=== PATIENT | female | born 1950 | race Caucasian/White ===

== ENCOUNTER → 2017-09-12 | Outpatient (CLI) | payer OTHER, BC ==
--- NOTE | 2017-09-15 14:46 | MAMMOGRAPHY REPORT ---
BILATERAL DIGITAL SCREENING MAMMOGRAM TOMOSYNTHESIS WITH CAD: 09/12/2017 CLINICAL HISTORY: Routine screening. TECHNIQUE: Breast tomosynthesis in addition to standard 2D mammography was performed. Current study was also evaluated with a Computer Aided Detection (CAD) system. COMPARISON: No prior exams were available for comparison. BREAST COMPOSITION: The tissue of both breasts is almost entirely fatty. FINDINGS: There are no suspicious masses, calcifications, or areas of architectural distortion noted within either breast. Intramammary lymph nodes are seen within bilateral upper outer quadrants. Sc attered bilateral benign-appearing calcifications are noted. A port catheter overlies the right pect oralis muscle. A linear scar marker denotes a scar on the right lower inner breast. IMPRESSION: ACR BI-RADS CATEGORY 0: INCOMPLETE EVALUATION: NEED ADDITIONAL IMAGING EVALUATION No mammographic evidence of malignancy in either breast. However, recommend obtaining prior outside mammograms to evaluate for any possible subtle changes. The outside prior mammograms will be request ed, and an addendum will be made when they are received and a comparison is made. Approximately 10% of breast cancers are not detected with mammography. A negative mammographic report should not delay biopsy if a clinically suggestive mass is present. Ashlie Acuña M.D. ah/:09/12/2017 17:10:50 Computerized [place] Recorder: Aleks KAUR(Harish)(M), [facility] letter sent: Need Priors 0 BI-RADS Code: ACR BI-RADS Category 0: Incomplete Evaluation: Need Additional Imaging Evaluation
== END | disposition home or self-care (01) ==
LOC: C.MAMM 11:25
PROVIDERS: ATTEND Family Medicine
DX: Z12.31 Encounter for screening mammogram for malignant neoplasm of breast (principal)

== ENCOUNTER 2018-03-24 21:17 | Inpatient (IN) | payer OTHER, BC ==
[~2018-03-24] VITALS: Ht 162.6 cm; Wt 91.4 kg
[~2018-03-24 21:17] MED LIST: ATV5 PO; CHOL1TAB2 PO; CYAN1TAB4 PO; IBRU420T PO
[2018-03-24] MEDS ORDERED: SODIUM CHLORIDE 0.9% 1000ML 1,000 ML IV ONE (22:12)
--- NOTE | 2018-03-24 22:26 | EMERGENCY ROOM VISIT NOTE ---
History Report prepared by Valentin: eKny Melara Under the Supervision of: Dr. Jeb Mims D.O. First contact with patient: 22:04 Chief Complaint: FEVER Stated Complaint: FEVER GREATER THAN 100.1 History of Present Illness The patient is a 67 year old female who presents to the Emergency Room with complaints of a constant fever that began today. Patient states the highest recorded fever was 101.7. Patient states she was discharged from the hospital yesterday after a recent blood transfusion. Patient states she received "2 units of blood and platelets". She states she was originally admitted to the hospital after "a slight amount of blood" was found in her stool. Past medical history includes leukemia. Patient states she was told to come to the ER if her fever was higher than 101. Patient states she has chills, diarrhea, and feels "clammy". She states she is going to start seeing Dr. Elder soon. Patient denies any recent travels. She states her last dose of Tylenol/Motrin was 4 hours ago. She states she took her last chemo pill an hour ago. She states she was told her chemo pill will cause "fluctuations" in her WBC. Patient states her PCP is Dr. Black. Patient denies any pain, urinary symptoms, cough, chest pain, nausea, vomiting, and rashes. She adds she has a port. Source of History: patient Onset: Today Position: head Symptom Intensity: 101.7 Timing: worsening Modifying Factors (Relieving): other (None) Associated Symptoms: + chills, No cough, No chest pain, No nausea, No vomiting, No urinary symptoms, No rash Note: Positive "clammy". Negative any pain. Review of Systems See HPI for pertinent positives & negatives. A total of 10 systems reviewed and were otherwise negative. Past Medical & Surgical Medical Problems: (1) CLL (chronic lymphocytic leukemia) Family History Omitted secondary to age. Social History Smoking Status: Never Smoker Marital Status: Housing Status: lives with family Occupation Status: retired Current/Historical Medications Scheduled Cholecalciferol (Vitamin D-3), 500 MG PO DAILY Cyanocobalamin (B-12), 500 MCG PO DAILY Ibrutinib (Imbruvica), 420 MG PO DAILY Multivitamin (Multivitamin), 1 TAB PO DAILY Scheduled PRN Lorazepam (Ativan), 0.5 MG PO HS PRN for Insomnia Allergies Coded Allergies: Azithromycin (Verified Allergy, Unknown, HIVES, 03/24/18) Physical Exam Vital Signs Date Time Temp Pulse Resp B/P (MAP) Pulse Ox O2 Delivery O2 Flow Rate FiO2 03/25/18 00:07 87 20 132/72 100 Room Air 03/24/18 22:50 82 14 125/56 97 Room Air 03/24/18 22:47 95 Room Air 03/24/18 21:34 37.4 91 18 116/66 98 Room Air Physical Exam GENERAL: Patient is awake, alert, and in no acute distress. Patient is resting comfortably and showing no signs of anxiety EYES: The conjunctivae are clear. The pupils are round and reactive. EARS, NOSE, MOUTH AND THROAT: The nose is without any evidence of any deformity. Mucous membranes are moist. Tongue is midline NECK: The neck is nontender and supple. RESPIRATORY: Normal respiratory effort is noted. There is no evidence of wheezing rhonchi or rales to auscultation. CARDIOVASCULAR: Regular rate and rhythm noted. There no murmurs rubs or gallops normal S1 normal S2 GASTROINTESTINAL: The abdomen is soft. Bowel sounds are present in all quadrants. Abdomen is nontender. MUSCULOSKELETAL/EXTREMITIES: There is no evidence of gross deformity. Full range of motion is noted in the hips and shoulders. SKIN: There is no obvious evidence of any rash. There are no petechiae, pallor or cyanosis noted. NEUROLOGIC: Patient is awake alert and oriented x3. Strength is symmetric. Patellar reflexes are 2+ bilaterally. Medical Decision & Procedures ER Provider Diagnostic Interpretation: Radiology results as stated below per my review and radiologist interpretation: CHEST ONE VIEW PORTABLE HISTORY: 67 years-old Female Sepsis acute sepsis COMPARISON: Chest radiograph 03/22/2018 TECHNIQUE: Portable AP view of the chest FINDINGS: Cardiomediastinal and hilar silhouettes are within normal limits. Right internal jugular [id number]-z-[id number] catheter is unchanged. No pneumothorax, pleural effusion, focal airspace consolidation or overt pulmonary edema. Bones of the chest appear grossly intact. IMPRESSION: No acute process. The above report was generated using voice recognition software. It may contain grammatical, syntax or spelling errors. Electronically signed by: Jarrell Balderrama M.D. 03/24/2018 10:38 PM Laboratory Results 03/24/18 22:41 Red Blood Count 2.51, Mean Corpuscular Volume 90.0, Mean Corpuscular Hemoglobin 31.1, Mean Corpuscular Hemoglobin Concent 34.5, Mean Platelet Volume 11.3, Neutrophils (%) (Auto) 5.4, Lymphocytes (%) (Auto) 93.4, Monocytes (%) (Auto) 0.4, Eosinophils (%) (Auto) 0.0, Basophils (%) (Auto) 0.4, Neutrophils # (Auto) 0.13, Lymphocytes # (Auto) 2.26, Monocytes # (Auto) 0.01, Eosinophils # (Auto) 0.00, Basophils # (Auto) 0.01 03/24/18 22:41 Test 03/24/18 22:41 03/24/18 22:50 03/24/18 22:53 White Blood Count 2.42 K/uL (4.8-10.8) Red Blood Count 2.51 M/uL (4.2-5.4) Hemoglobin 7.8 g/dL (12.0-16.0) Hematocrit 22.6 % (37-47) Mean Corpuscular Volume 90.0 fL (80-100) Mean Corpuscular Hemoglobin 31.1 pg (25-34) Mean Corpuscular Hemoglobin Concent 34.5 g/dl (32-36) Platelet Count 24 K/uL (130-400) Mean Platelet Volume 11.3 fL (7.4-10.4) Neutrophils (%) (Auto) 5.4 % Lymphocytes (%) (Auto) 93.4 % Monocytes (%) (Auto) 0.4 % Eosinophils (%) (Auto) 0.0 % Basophils (%) (Auto) 0.4 % Neutrophils # (Auto) 0.13 K/uL (1.4-6.5) Lymphocytes # (Auto) 2.26 K/uL (1.2-3.4) Monocytes # (Auto) 0.01 K/uL (0.11-0.59) Eosinophils # (Auto) 0.00 K/uL (0-0.5) Basophils # (Auto) 0.01 K/uL (0-0.2) RDW Standard Deviation 46.8 fL (36.4-46.3) RDW Coefficient of Variation 14.3 % (11.5-14.5) Immature Granulocyte % (Auto) 0.4 % Immature Granulocyte # (Auto) 0.01 K/uL (0.00-0.02) Hypogranular Neutrophils 1+ Smudge Cells PRESENT Dohle Bodies 1+ Platelet Estimate SIGNIFIC DECREASED Erythrocyte Sedimentation Rate 12 mm/hr (0-21) Prothrombin Time 11.3 SECONDS (9.0-12.0) Prothromb Time International Ratio 1.1 (0.9-1.1) Activated Partial Thromboplast Time 65.1 SECONDS (21.0-31.0) Partial Thromboplastin Ratio 2.5 Anion Gap 6.0 mmol/L (3-11) Est Creatinine Clear Calc Drug Dose 82.3 ml/min Estimated GFR () 103.9 Estimated GFR (Non- 89.7 BUN/Creatinine Ratio 28.6 (10-20) Calcium Level 7.7 mg/dl (8.5-10.1) Magnesium Level 1.6 mg/dl (1.8-2.4) Total Bilirubin 1.8 mg/dl (0.2-1) Aspartate Amino Transf (AST/SGOT) 10 U/L (15-37) Alanine Aminotransferase (ALT/SGPT) 14 U/L (12-78) Alkaline Phosphatase 97 U/L (45-117) C-Reactive Protein 5.96 mg/dl (0-0.29) Total Protein 5.5 gm/dl (6.4-8.2) Albumin 2.9 gm/dl (3.4-5.0) Globulin 2.6 gm/dl (2.5-4.0) Albumin/Globulin Ratio 1.1 (0.9-2) Lipase 68 U/L (73-393) Urine Color DK YELLOW Urine Appearance CLEAR (CLEAR) Urine pH 5.0 (4.5-7.5) Urine Specific [place] 1.020 (1.000-1.030) Urine Protein 1+ (NEG) Urine Glucose (UA) NEG (NEG) Urine Ketones NEG (NEG) Urine Occult Blood 1+ (NEG) Urine Nitrite NEG (NEG) Urine Bilirubin NEG (NEG) Urine Urobilinogen NEG (NEG) Urine Leukocyte Esterase SMALL (NEG) Urine WBC (Auto) 1-5 /hpf (0-5) Urine RBC (Auto) 5-10 /hpf (0-4) Urine Hyaline Casts (Auto) 1-5 /lpf (0-5) Urine Epithelial Cells (Auto) >30 /lpf (0-5) Urine Bacteria (Auto) NEG (NEG) Bedside Lactic Acid Venous < 0.30 mmol/L (0.90-1.70) Laboratory results per my review. Medications Administered Medications (Trade) Dose Ordered Sig/Quita Route Start Time Stop Time Status Last Admin Dose Admin Sodium Chloride 1,000 ml @ 999 mls/hr Q1H1M ONCE IV 03/24/18 22:12 03/24/18 23:12 DC 03/24/18 22:12 999 MLS/HR Magnesium Sulfate (Magnesium Sulfate 1gm / D5W) 2 gm NOW STAT IV 03/24/18 23:53 03/24/18 23:54 DC 03/25/18 00:04 2 GM Potassium Chloride (Klor-Con M10) 10 meq NOW STAT PO 03/24/18 23:53 03/24/18 23:54 DC 03/25/18 00:05 10 MEQ Cefepime HCl 2000 mg/Dextrose 122 ml @ 200 mls/hr NOW STAT IV 03/24/18 23:57 03/25/18 00:33 DC 03/25/18 00:53 200 MLS/HR ED Course 2208: The patient was evaluated in room C12B. A complete history and physical examination were performed. 2212: NSS 1,000 ml @ 999 mls/hr IV 2353: Potassium Chloride 10meq PO and Magnesium Sulfate 2gm IV 2357: Cefepime HCl 2,000mg/Dextrose 122 ml @ 200 mls/hr IV 0012: Upon reevaluation, the patient will be further evaluated. I discussed results and treatment plan with her. She verbalizes agreement and understanding. I spoke with Dr. Gong of the [facility] Resident. The patient will be evaluated for further management and care. Medical Decision Prior records/ancillary studies reviewed. Triage Nursing notes reviewed. The patient's history was concerning for fever. Differential diagnosis: Etiologies such as viral syndrome, otitis, pharyngitis, pneumonia, influenza, meningitis, urinary tract infection, sepsis, bacteremia, as well as others were entertained. The patient is a 67-year-old female who presented to the emergency department for an evaluation of fever. The patient was recently seen in our facility for blood transfusion for pancytopenia. The patient has a history of CLL. She does receive chemotherapy. She had a fever today and was told to go to the emergency department because of her chemotherapy use. I discussed patient's laboratory and radiographic studies with her. Given her neutropenia she was given IV fluids and IV antibiotics. I discussed her case with the on-call [facility] hospitalist group. They have agreed to evaluate patient in the emergency department for further management and disposition. I discussed patient's laboratory and radiographic studies with her. Medication Reconcilliation Current Medication List: was personally reviewed by me Blood Pressure Screening Patient's blood pressure: Normal blood pressure Blood pressure disposition: Did not require urgent referral Consults Time Called: [phone] Consulting Physician: Dr. Gong - [facility] Hospitalist Resident Returned Call: [phone] I discussed the patient's case with Dr. Gong. The patient will be evaluated for further management. Impression Primary Impression: Neutropenic fever Additional Impressions: Hypomagnesemia Pancytopenia Scribe Attestation The scribe's documentation has been prepared under my direction and personally reviewed by me in its entirety. I confirm that the note above accurately reflects all work, treatment, procedures, and medical decision making performed by me. Departure Information Dispostion Being Evaluated By Hospitalist Referrals Parisa Black M.D. (PCP) Forms HOME CARE DOCUMENTATION FORM, IMPORTANT VISIT INFORMATION Patient Instructions My [facility] Health Problem Qualifiers
--- NOTE | 2018-03-24 22:39 | DIAGNOSTIC IMAGING REPORT ---
CHEST ONE VIEW PORTABLE HISTORY: 67 years-old Female Sepsis acute sepsis COMPARISON: Chest radiograph 03/22/2018 TECHNIQUE: Portable AP view of the chest FINDINGS: Cardiomediastinal and hilar silhouettes are within normal limits. Right internal jugular [id number]-Iess catheter is unchanged. No pneumothorax, pleural effusion, focal airspace consolidation or overt pulmonary edema. Bones of the chest appear grossly intact. IMPRESSION: No acute process. The above report was generated using voice recognition software. It may contain grammatical, syntax or spelling errors. Electronically signed by: Jarrell Balderrama M.D. 03/24/2018 10:38 PM Dictated Date/Time: 03/24/2018 10:36 PM
[2018-03-24 23:20] LABS: INR 1.1 (0.9-1.1)
[2018-03-24 23:21] LABS: PTT PATIENT 65.1 SECONDS (21.0-31.0)
[2018-03-24 23:28] LABS: ALBUMIN 2.9 gm/dl (3.4-5.0); CALCIUM 7.7 mg/dl (8.5-10.1); CREATININE 0.7 mg/dl (0.60-1.20); POTASSIUM 3.3 mmol/L (3.5-5.1); TOTAL PROTEIN 5.5 gm/dl (6.4-8.2)
[2018-03-24 23:29] LABS: HEMATOCRIT 22.6 % (37-47); HEMOGLOBIN 7.8 g/dL (12.0-16.0); MEAN CORPUSCULAR HEMOGLOBIN 31.1 pg (25-34); MEAN CORPUSCULAR HGB CONC 34.5 g/dl (32-36); MEAN PLATELET VOLUME 11.3 fL (7.4-10.4); PLATELET COUNT 24 K/uL (130-400); RED CELL DISTRIBUTION WIDTH CV 14.3 % (11.5-14.5); RED CELL DISTRIBUTION WIDTH SD 46.8 fL (36.4-46.3); WHITE BLOOD COUNT 2.42 K/uL (4.8-10.8)
[2018-03-24 23:45] LABS: BASO % 0.4 %; BASO ABS # 0.01 K/uL (0-0.2); IG# 0.01 K/uL (0.00-0.02); LYMPH % 93.4 %; LYMPH ABS # 2.26 K/uL (1.2-3.4); MONO % 0.4 %; MONO ABS # 0.01 K/uL (0.11-0.59); NEUT % 5.4 %; NEUT ABS # 0.13 K/uL (1.4-6.5)
[2018-03-24] MEDS ORDERED: POTASSIUM CHLORIDE 10 MEQ TABCR PO STA (23:53)
[2018-03-24] MEDS ORDERED: MAGNESIUM SULFATE 1GM / D5W 1 GM BAG IV STA (23:53)
[2018-03-24] MEDS ORDERED: MULT-506 PO (23:54)
[2018-03-24] MEDS ORDERED: LORA-741 PO (23:54)
[2018-03-24] MEDS ORDERED: CEFEPIME IV 2,000 MG in DEXTROSE 5% 100ML 100 ML IV STA (23:57)
[2018-03-25] VITALS (12 sets, daily range): BP systolic 109–137; BP diastolic 66–83; PULSE 80–98; TEMP 36.7–37.6; O2SAT 92–100; Ht 162.6 cm; Wt 91.4 kg
[2018-03-25] MEDS ORDERED: PIPERACILL/TAZOBAC CONSULT ACTIVE PRN (01:45)
[2018-03-25] MEDS ORDERED: VANCOMYCIN CONSULT ACTIVE PRN (01:45)
[2018-03-25] MEDS ORDERED: ACETAMINOPHEN 325 MG TAB PO PRN (01:45)
[2018-03-25] MEDS ORDERED: VANCOMYCIN 1GM ED/ASU OMNICELL ONE (01:50)
[2018-03-25] MEDS ORDERED: ONDANSETRON 8MG OD TAB PO PRN (02:00)
[2018-03-25] MEDS ORDERED: FILGRASTIM 480 MCG/1.6 ML VIAL SC ONE (02:00)
[2018-03-25] MEDS ORDERED: PIPERACILL/TAZOBAC IV 4.5 GM in D5W 100 ML IV ONE (03:00)
[2018-03-25] MEDS: NSS + 20MEQ KCL 1000ML 1,000 ML IV SCH ×2 (03:56→15:27)
[2018-03-25] MEDS ORDERED: VANCOMYCIN IV 1,000 MG in SODIUM CHLORIDE 0.9% 250ML 250 ML IV SCH (04:00)
--- NOTE | 2018-03-25 04:40 | Pharmacy Progress Note ---
Pharmacy Antibiotic Consult Date of Service: Mar 25, 2018. Pharmacy Dosing Scope Pharmacy is consulted to initiate VANCOMYCIN IV dosing therapy, order appropriate labs and adjust drug dose/frequency. Subjective The patient is a 67 year old female admitted on Mar 25, 2018 at 01:52. Objective Height (Feet): 5 Height (Inches): 4.00 Weight (Kilograms): 83.700 Lab Results (24hrs): Test 03/24/18 22:41 03/24/18 22:50 03/24/18 22:53 White Blood Count 2.42 K/uL (4.8-10.8) Red Blood Count 2.51 M/uL (4.2-5.4) Hemoglobin 7.8 g/dL (12.0-16.0) Hematocrit 22.6 % (37-47) Mean Corpuscular Volume 90.0 fL (80-100) Mean Corpuscular Hemoglobin 31.1 pg (25-34) Mean Corpuscular Hemoglobin Concent 34.5 g/dl (32-36) Platelet Count 24 K/uL (130-400) Mean Platelet Volume 11.3 fL (7.4-10.4) Neutrophils (%) (Auto) 5.4 % Lymphocytes (%) (Auto) 93.4 % Monocytes (%) (Auto) 0.4 % Eosinophils (%) (Auto) 0.0 % Basophils (%) (Auto) 0.4 % Neutrophils # (Auto) 0.13 K/uL (1.4-6.5) Lymphocytes # (Auto) 2.26 K/uL (1.2-3.4) Monocytes # (Auto) 0.01 K/uL (0.11-0.59) Eosinophils # (Auto) 0.00 K/uL (0-0.5) Basophils # (Auto) 0.01 K/uL (0-0.2) RDW Standard Deviation 46.8 fL (36.4-46.3) RDW Coefficient of Variation 14.3 % (11.5-14.5) Immature Granulocyte % (Auto) 0.4 % Immature Granulocyte # (Auto) 0.01 K/uL (0.00-0.02) Hypogranular Neutrophils 1+ Smudge Cells PRESENT Dohle Bodies 1+ Platelet Estimate SIGNIFIC DECREASED Erythrocyte Sedimentation Rate 12 mm/hr (0-21) Prothrombin Time 11.3 SECONDS (9.0-12.0) Prothromb Time International Ratio 1.1 (0.9-1.1) Activated Partial Thromboplast Time 65.1 SECONDS (21.0-31.0) Partial Thromboplastin Ratio 2.5 Sodium Level 139 mmol/L (136-145) Potassium Level 3.3 mmol/L (3.5-5.1) Chloride Level 110 mmol/L (98-107) Carbon Dioxide Level 23 mmol/L (21-32) Anion Gap 6.0 mmol/L (3-11) Blood Urea Nitrogen 20 mg/dl (7-18) Creatinine 0.70 mg/dl (0.60-1.20) Est Creatinine Clear Calc Drug Dose 82.3 ml/min Estimated GFR () 103.9 Estimated GFR (Non- 89.7 BUN/Creatinine Ratio 28.6 (10-20) Random Glucose 94 mg/dl (70-99) Calcium Level 7.7 mg/dl (8.5-10.1) Magnesium Level 1.6 mg/dl (1.8-2.4) Total Bilirubin 1.8 mg/dl (0.2-1) Aspartate Amino Transf (AST/SGOT) 10 U/L (15-37) Alanine Aminotransferase (ALT/SGPT) 14 U/L (12-78) Alkaline Phosphatase 97 U/L (45-117) C-Reactive Protein 5.96 mg/dl (0-0.29) Total Protein 5.5 gm/dl (6.4-8.2) Albumin 2.9 gm/dl (3.4-5.0) Globulin 2.6 gm/dl (2.5-4.0) Albumin/Globulin Ratio 1.1 (0.9-2) Lipase 68 U/L (73-393) Urine Color DK YELLOW Urine Appearance CLEAR (CLEAR) Urine pH 5.0 (4.5-7.5) Urine Specific [place] 1.020 (1.000-1.030) Urine Protein 1+ (NEG) Urine Glucose (UA) NEG (NEG) Urine Ketones NEG (NEG) Urine Occult Blood 1+ (NEG) Urine Nitrite NEG (NEG) Urine Bilirubin NEG (NEG) Urine Urobilinogen NEG (NEG) Urine Leukocyte Esterase SMALL (NEG) Urine WBC (Auto) 1-5 /hpf (0-5) Urine RBC (Auto) 5-10 /hpf (0-4) Urine Hyaline Casts (Auto) 1-5 /lpf (0-5) Urine Epithelial Cells (Auto) >30 /lpf (0-5) Urine Bacteria (Auto) NEG (NEG) Bedside Lactic Acid Venous < 0.30 mmol/L (0.90-1.70) Micro Results: * 03/24/18 -- Blood x 2 -- pending Assessment & Plan 67yo female admitted with fever. Ordere VANCOMYCIN / ZOSYN as empiric therapy. Renal function is good. VANCOMYCIN: * Loading dose: VANCOMYCIN 2000mg (24 mg/kg) IV X 1 dose then VANCOMYCIN 1250mg (15mg/kg) IV every 12 hours. * Estimated Pk parameters: Vd 0.7 L/kg Ke ~0.072 t1/2 ~10 hours * Goal trough level estimate: between 15 - 20 mcg/mL. * Will check a trough level on 03/27 if VANCOMYCIN is continued past the current 48hr stop date/time. Pharmacy will continue to follow and will adjust dose/frequency as necessary. Thank you
--- NOTE | 2018-03-25 04:55 | History and Physical ---
History & Physical Date & Time of Service: Mar 25, 2018 at 04:23 Chief Complaint: Neutropenic Fever,Pancytopenia Primary Care Physician: Parisa Black M.D. History of Present Illness Source: patient, spouse, hospital records The patient is a 67-year-old female, with past medical history including small lymphocytic lymphoma, with newer diagnosis of CLL, who was most recently admitted to [facility] from March 22-March 23, for generalized weakness, fatigue and dizziness, and hemoglobin decreased to 7.5, with baseline 9.0. She was found to be pancytopenic, was transfused 2 units PRBCs, and 1 unit of irradiated/leuko -reduced platelets. She also received Neupogen 480 mcg subcu prior to discharge. She was advised to return to the emergency department if she were to develop a temperature, and she reports that she developed a temperature of 101.7 at home, and thus presented to the emergency department for assessment. Past Medical/Surgical History Medical Problems: (1) Anemia (2) CLL (chronic lymphocytic leukemia) (3) GI bleed (4) Hypokalemia (5) Neutropenia (6) Pancytopenia (7) Symptomatic anemia (8) Thrombocytopenia Family History Noncontributory Social History Smoking Status: Never Smoker Smokeless Tobacco Use: No Alcohol Use: none Drug Use: none Marital Status: Housing status: lives with family Occupational Status: retired Immunizations History of Influenza Vaccine: Unknown History of Tetanus Vaccine?: Unknown History of Pneumococcal: Unknown History of Hepatitis B Vaccine: Unknown Allergies Coded Allergies: Azithromycin (Verified Allergy, Unknown, HIVES, 03/24/18) Home Medications Scheduled Cholecalciferol (Vitamin D-3), 500 MG PO DAILY Cyanocobalamin (B-12), 500 MCG PO DAILY Ibrutinib (Imbruvica), 420 MG PO DAILY Multivitamin (Multivitamin), 1 TAB PO DAILY Scheduled PRN Lorazepam (Ativan), 0.5 MG PO HS PRN for Insomnia Review of Systems The patient denies chest pain, palpitations, shortness of breath, dyspnea on exertion, cough, lower extremity swelling, sore throat, chills, sweats, weight change, vomiting, diarrhea , constipation, abdominal pain, pelvic pain, blood in urine or stool, dysuria, urinary frequency or urgency, headache, memory loss, loss of consciousness, rash, abnormal bruising or bleeding, imbalance, focal weakness, numbness or tingling in arms or legs, generalized arthralgias or myalgias, back or neck pain, or night sweats. The review of systems is otherwise negative other than for that already noted above, and at least 10 systems have been reviewed. Physical Exam Vital Signs Date Time Temp Pulse Resp B/P (MAP) Pulse Ox O2 Delivery O2 Flow Rate FiO2 03/25/18 02:40 37.6 98 18 137/80 92 Room Air 03/25/18 01:53 96 16 120/68 99 Room Air 03/25/18 00:07 87 20 132/72 100 Room Air 03/24/18 22:50 82 14 125/56 97 Room Air 03/24/18 22:47 95 Room Air 03/24/18 21:34 37.4 91 18 116/66 98 Room Air The patient is awake, alert and oriented 3, normocephalic and atraumatic, lying in bed and in no acute distress. HEENT--PERRL, EOMI, oropharynx normal, and left eye with mild tearing. Neck--supple. No JVD. No bruits. Thyroid normal, trachea midline, no adenopathy. Heart--normal S1 and S2. No murmurs, rubs or gallops. Lungs--clear bilaterally, no respiratory distress, no accessory muscle use. Abdomen--normal bowel sounds and soft. Nontender. Nondistended, no hernias or masses, no organomegaly. Extremities--no cyanosis or clubbing. No edema. There are good distal pulses b/ l. Dermatologic--normal skin turgor, normal color, no abnormal lymph nodes, no rash. Neurologic--cranial nerves II through XII grossly intact. Rheumatologic--normal range of motion. Psychiatric--normal affect. Diagnostics Laboratory Results Results Past 24 Hours Test 03/24/18 22:41 03/24/18 22:50 03/24/18 22:53 Range/Units White Blood Count 2.42 4.8-10.8 K/uL Red Blood Count 2.51 4.2-5.4 M/uL Hemoglobin 7.8 12.0-16.0 g/dL Hematocrit 22.6 37-47 % Mean Corpuscular Volume 90.0 80-100 fL Mean Corpuscular Hemoglobin 31.1 25-34 pg Mean Corpuscular Hemoglobin Concent 34.5 32-36 g/dl Platelet Count 24 130-400 K/uL Mean Platelet Volume 11.3 7.4-10.4 fL Neutrophils (%) (Auto) 5.4 % Lymphocytes (%) (Auto) 93.4 % Monocytes (%) (Auto) 0.4 % Eosinophils (%) (Auto) 0.0 % Basophils (%) (Auto) 0.4 % Neutrophils # (Auto) 0.13 1.4-6.5 K/uL Lymphocytes # (Auto) 2.26 1.2-3.4 K/uL Monocytes # (Auto) 0.01 0.11-0.59 K/uL Eosinophils # (Auto) 0.00 0-0.5 K/uL Basophils # (Auto) 0.01 0-0.2 K/uL RDW Standard Deviation 46.8 36.4-46.3 fL RDW Coefficient of Variation 14.3 11.5-14.5 % Immature Granulocyte % (Auto) 0.4 % Immature Granulocyte # (Auto) 0.01 0.00-0.02 K/uL Hypogranular Neutrophils 1+ Smudge Cells PRESENT Dohle Bodies 1+ Platelet Estimate SIGNIFIC DECREASED Erythrocyte Sedimentation Rate 12 0-21 mm/hr Prothrombin Time 11.3 9.0-12.0 SECONDS Prothromb Time International Ratio 1.1 0.9-1.1 Activated Partial Thromboplast Time 65.1 21.0-31.0 SECONDS Partial Thromboplastin Ratio 2.5 Sodium Level 139 136-145 mmol/L Potassium Level 3.3 3.5-5.1 mmol/L Chloride Level 110 98-107 mmol/L Carbon Dioxide Level 23 21-32 mmol/L Anion Gap 6.0 3-11 mmol/L Blood Urea Nitrogen 20 7-18 mg/dl Creatinine 0.70 0.60-1.20 mg/dl Est Creatinine Clear Calc Drug Dose 82.3 ml/min Estimated GFR () 103.9 Estimated GFR (Non- 89.7 BUN/Creatinine Ratio 28.6 10-20 Random Glucose 94 70-99 mg/dl Calcium Level 7.7 8.5-10.1 mg/dl Magnesium Level 1.6 1.8-2.4 mg/dl Total Bilirubin 1.8 0.2-1 mg/dl Aspartate Amino Transf (AST/SGOT) 10 15-37 U/L Alanine Aminotransferase (ALT/SGPT) 14 12-78 U/L Alkaline Phosphatase 97 45-117 U/L C-Reactive Protein 5.96 0-0.29 mg/dl Total Protein 5.5 6.4-8.2 gm/dl Albumin 2.9 3.4-5.0 gm/dl Globulin 2.6 2.5-4.0 gm/dl Albumin/Globulin Ratio 1.1 0.9-2 Lipase 68 73-393 U/L Urine Color DK YELLOW Urine Appearance CLEAR CLEAR Urine pH 5.0 4.5-7.5 Urine Specific [place] 1.020 1.000-1.030 Urine Protein 1+ NEG Urine Glucose (UA) NEG NEG Urine Ketones NEG NEG Urine Occult Blood 1+ NEG Urine Nitrite NEG NEG Urine Bilirubin NEG NEG Urine Urobilinogen NEG NEG Urine Leukocyte Esterase SMALL NEG Urine WBC (Auto) 1-5 0-5 /hpf Urine RBC (Auto) 5-10 0-4 /hpf Urine Hyaline Casts (Auto) 1-5 0-5 /lpf Urine Epithelial Cells (Auto) >30 0-5 /lpf Urine Bacteria (Auto) NEG NEG Bedside Lactic Acid Venous < 0.30 0.90-1.70 mmol/L Microbiology Results 03/24/18 Blood Culture, Received Pending 03/24/18 Blood Culture, Received Pending Diagnostic Radiology Patient Name: OMAR KLUKARNI Unit Number: [id number] Dictated: 03/24/182235 Transcribed: 03/24/182235 JRB Printed Date/Time: [~ rep prt dt]/[~ rep prt tm] [~ rep ct labl] - [~ rep ct ivnm] [facility] [place] [address] Dictated: 03/24/182235 Transcribed: 03/24/182235 JRB Printed Date/Time: [~ rep prt dt]/[~ rep prt tm] [~ rep ct labl] - [~ rep ct ivnm] CHEST ONE VIEW PORTABLE HISTORY: 67 years-old Female Sepsis acute sepsis COMPARISON: Chest radiograph 03/22/2018 TECHNIQUE: Portable AP view of the chest FINDINGS: Cardiomediastinal and hilar silhouettes are within normal limits. Right internal jugular Dysmin-g-Hobf catheter is unchanged. No pneumothorax, pleural effusion, focal airspace consolidation or overt pulmonary edema. Bones of the chest appear grossly intact. IMPRESSION: No acute process. The above report was generated using voice recognition software. It may contain grammatical, syntax or spelling errors. Electronically signed by: Jarrell Balderrama M.D. 03/24/2018 10:38 PM Dictated Date/Time: 03/24/2018 10:36 PM The status of this report is Signed. Draft = Not yet reviewed or approved by Radiologist. Signed = Reviewed and approved by Radiologist. <AttendingPhy></AttendingPhy> <FamilyPhy>Parisa Black M.D.</FamilyPhy> < PrimaryPhy>Parisa Black M.D.</PrimaryPhy> <UnitNumber>[id number]</UnitNumber> < VisitNumber>[id number]</VisitNumber> <PatientName>OMAR KULKARNI</PatientName> < DateOfBirth>1950</DateOfBirth> <Location>[facility]</Location> <ServiceDate></ServiceDate> <MNE>ESINDI</MNE> <OrderingPhy>Jeb Mims D.O.</ OrderingPhy> <OrderingPhyMNE>f rep ord dr beltran</OrderingPhyMNE> <DictatingPhyMNE> f rep dict dr beltran</DictatingPhyMNE> <CCListMNE>f rep ct mne</CCListMNE> < AdmittingPhyMNE>f pt admit dr beltran</AdmittingPhyMNE> <AttendingPhyMNE>f pt attend dr beltran</AttendingPhyMNE> <ConsultingPhyMNE>f pt consult dr beltran</ConsultingPhyMNE> <FamilyPhyMNE>f pt fam dr beltran</FamilyPhyMNE> <OtherPhyMNE>f pt other dr beltran</OtherPhyMNE> < PrimaryPhyMNE>f pt prim care dr beltran</PrimaryPhyMNE> <ReferringPhyMNE>f pt referring dr beltran</ReferringPhyMNE> Patient Name: OMAR KULKARNI Unit Number: [id number] Dictated: 03/06/18824 Transcribed: 03/06/18824 PBS Printed Date/Time: [~ rep prt dt]/[~ rep prt tm] [~ rep ct labl] - [~ rep ct ivnm] [facility] [address] Dictated: 03/06/18824 Transcribed: 03/06/18824 PBS Printed Date/Time: [~ rep prt dt]/[~ rep prt tm] [~ rep ct labl] - [~ rep ct ivnm] [~ rep ct add3]] TEMPORAL ORB/SELLA/TEMP W/O CLINICAL HISTORY: 67 years-old Female presenting with MIXED CONDUCTIVE AND SENSORINEURAL HEARING LOSS, abnormal tympanic membrane of the right ear, concern for cholesteatoma. TECHNIQUE: Multidetector CT of the temporal bones was performed without the use of intravenous contrast. IV contrast: None. A dose lowering technique was used consistent with the principles of ALARA (as low as reasonably achievable). COMPARISON: None. CT DOSE (mGy.cm): The estimated cumulative dose is 781.85 mGy.cm. FINDINGS: Software Testing Specialist topogram: Unremarkable. Near complete opacification of the maxillary sinuses, which demonstrate significant mucosal thickening and internal high density debris. Similar opacification of the frontal sinuses and ethmoid air cells. Minimal mucosal thickening in the sphenoid sinuses. Aerated secretions noted in the left sphenoid sinus. Soft tissue or inspissated fluid noted in the right middle ear. Inspissated fluid in the right mastoid air cells. Trace fluid in the right mastoid air cells though the right middle ear is clear. No evidence of osseous erosion. Mild sclerosis of the sphenoid sinus lamb. Ossicles of the right middle ear appear intact. Similarly, left middle ear ossicles intact. The left tympanic membrane is thin and early perceptible, which is normal. Fluid or soft tissue thickening in the middle ear abuts the right tympanic membrane, which is likely thickened. The scutum is intact. No evidence of osseous erosion. Inner ears structures are normal bilaterally. Internal auditory canals without evidence of osseous remodeling. Limited intracranial evaluation demonstrates age-related volume loss. The orbits are normal. Superficial soft tissues of the head included in the field of view are normal. IMPRESSION: 1. Findings consistent with allergic fungal sinusitis involving the maxillary and frontal sinuses as well as ethmoid air cells. 2. Aerated secretions in the left sphenoid sinus with sclerosis of the sphenoid sinus lamb likely indicates acute on chronic sinusitis. 3. Soft tissue or inspissated fluid in the right middle ear with extensive fluid in the right mastoid air cells. No evidence of osseous erosion to suggest an invasive infection or cholesteatoma. The absence of intravenous contrast partially limits evaluation. This may represent chronic otitis media among other considerations. A contrast-enhanced IAC/temporal protocol MR may be helpful for further characterization. Electronically signed by: Javier Adam M.D. 03/06/2018 8:36 AM Dictated Date/Time: 03/06/2018 8:25 AM The status of this report is Signed. Draft = Not yet reviewed or approved by Radiologist. Signed = Reviewed and approved by Radiologist. <AttendingPhy>Tanya Waddell PA</AttendingPhy> <FamilyPhy>Praisa Black M.D.< /FamilyPhy> <PrimaryPhy>Parisa Black M.D.</PrimaryPhy> <UnitNumber>[id number]</ UnitNumber> <VisitNumber>[id number]</VisitNumber> <PatientName>OMAR KULKARNI</ PatientName> <DateOfBirth>1950</DateOfBirth> <Location>C.CTS</Location> < ServiceDate>03/06/18</ServiceDate> <MNE>ESINDI</MNE> <OrderingPhy>Tanya Waddell</OrderingPhy> <OrderingPhyMNE>f rep ord dr beltran</OrderingPhyMNE> < DictatingPhyMNE>f rep dict dr beltran</DictatingPhyMNE> <CCListMNE>f rep ct mne</ CCListMNE> <AdmittingPhyMNE>f pt admit dr beltran</AdmittingPhyMNE> <AttendingPhyMNE >f pt attend dr beltran</AttendingPhyMNE> <ConsultingPhyMNE>f pt consult dr beltran</ConsultingPhyMNE> <FamilyPhyMNE>f pt fam dr beltran</FamilyPhyMNE> <OtherPhyMNE>f pt other dr beltran</OtherPhyMNE> < PrimaryPhyMNE>f pt prim care dr beltran</PrimaryPhyMNE> <ReferringPhyMNE>f pt referring dr beltran</ReferringPhyMNE> Impression Assessment and Plan Neutropenic fever/ Patient was given cefepime in the ED. Place on vancomycin IV and Zosyn IV for empiric therapy. Patient has an abnormal CT of temporal bone on 03/06/18 describing an allergic fungal sinusitis involving the maxillary, frontal and ethmoid sinuses. An acute on chronic left sphenoid sinusitis, and and extensive right mastoid sinusitis. Place on fluconazole 200 mg IV daily. Order CT of head and sinuses without contrast for further assessment. CLL/pancytopenia-- Presently on oral chemotherapy Imbruvica 420mg daily. Was transfused 2 units packed RBCs and 1 unit irradiated/leuko-reduced platelets at last admission. Hemoglobin upon admission today 7.8, and platelets are 24. ANC has decreased from 0.23-0.15, and today is 0.13. Received Neupogen 480 mcg subcu on 03/23, and will give an additional dose tonight. Order type and screen. Serial laboratories. Consult Dr. Elder. Chronic diarrhea-- Send stool for culture and C. difficile. She reports that this is been going on for several months, therefore likely more related to chemo then infection. Start cholestyramine 4 g p.o. twice daily. Start rifaximin 200 mg p.o. 3 times daily. Start Florastor 4 times daily. Electrolyte abnormalities/ hypokalemia/hypomagnesemia-- NSS + KCl 20 mEq 100 mils per hour. Received potassium and magnesium supplement while in the ED. Repeat laboratories in the a.m. Advanced Directives Existing Living Will: Yes Existing Power of Supervisor Ditching: Yes Resuscitation Status VTE Prophylaxis Will order VTE Prophylaxis: Yes Social Service Consult Cancer Patient Under [place]
[2018-03-25] MEDS ORDERED: IV FLUIDS COMPLETED PRN (06:15)
--- NOTE | 2018-03-25 06:49 | DIAGNOSTIC IMAGING REPORT ---
CT HEAD WITHOUT CONTRAST (CT) CLINICAL HISTORY: Fever, neutropenia, abnormal CT scan dated 03/06/2018 COMPARISON STUDY: Temporal bone CT scan 8 03/06/2018 TECHNIQUE: Axial CT of the brain is performed from the vertex to the skull base. IV contrast was not administered for this examination. A dose lowering technique was utilized adhering to the principles of ALARA. CT DOSE: FINDINGS: No intra or extra-axial mass lesions are visualized. There is no CT evidence of acute cortical infarction. There is no evidence of midline shift. There is no acute hemorrhage. No calvarial fractures are visualized. There are patchy white matter hypodensities likely on a small vessel basis. There is no evidence of pathologic ventricular dilatation. There is complete opacification left maxillary sinus. There is partial opacification of the right maxillary sinus. There is mucosal disease within the ethmoid sinuses. The right frontal sinus is opacified. There is moderate left frontal sinus mucosal thickening. There is mild mucosal thickening within the sphenoid. There is a right mastoid effusion. There is fluid within the right middle ear cavity. There is increased density within the left maxillary sinus raise the possibility of a fungal etiology. IMPRESSION: 1. Extensive pansinus disease. This includes a right mastoid effusion and opacification of the right middle ear cavity 2. No acute intracranial findings. Electronically signed by: Chintan Monae M.D. 03/25/2018 6:48 AM Dictated Date/Time: 03/25/2018 6:43 AM
--- NOTE | 2018-03-25 07:05 | DIAGNOSTIC IMAGING REPORT ---
CT SINUSES-MAXILLOFACIAL W/O CLINICAL HISTORY: Neutropenic fever. COMPARISON STUDY: 03/06/2018 TECHNIQUE: CT scan of the paranasal sinuses was performed in the axial plane. Coronal reconstructed images were obtained and reviewed. A dose lowering technique was utilized adhering to the principles of ALARA. CT DOSE: FINDINGS: There is bilateral posterior triangle cervical lymphadenopathy. There is no hydrocephalus. There is extensive right mastoid effusion. There is a small left mastoid effusion. There is soft tissue/fluid within the right middle ear cavity. There is mild sphenoid sinus mucosal thickening. Multiple ethmoid air cells are opacified. There is complete opacification of the left maxillary sinus. There is marked mucosal disease within the right maxillary sinus. The right frontal sinus is nearly completely opacified. There is marked mucosal disease in the left frontal sinus. Sinus secretions are of increased density raising the possibility of a fungal etiology. Both ostiomeatal units are occluded by soft tissue. The olfactory grooves measure 4 mm in depth. The right ethmoidal notches is protected. The left ethmoidal notches are unprotected. The frontal recesses are occluded. IMPRESSION: 1. Extensive pansinus disease. Increased density in the sinuses raise the possibility of a fungal etiology 2. Extensive right mastoid effusion and small left mastoid effusion. There is fluid within the right middle ear cavity. 3. Cervical lymphadenopathy Electronically signed by: Chintan Monae M.D. 03/25/2018 7:03 AM Dictated Date/Time: 03/25/2018 6:57 AM
[2018-03-25] MEDS: FLUCONAZOLE / NSS 200 MG in PREMIXED NSS 100 ML IV SCH ×2 (07:30→08:27)
[2018-03-25] MEDS: PIPERACILL/TAZOBAC IV 3.375 GM in DEXTROSE 5% 100ML 100 ML IV SCH ×2 (07:30→22:17)
[2018-03-25] MEDS: CYANOCOBALAMIN 500 MCG TAB (VIT B-12) PO SCH (07:31)
[2018-03-25] MEDS: RIFAXIMIN TAB 200 MG TAB PO SCH ×3 (07:31→20:00)
[2018-03-25] MEDS: CHOLECALCIFEROL 1000 INTER.UNIT TAB PO SCH (07:31)
[2018-03-25] MEDS: LACTOBACILLUS ACIDOPHILUS (FLORANEX) TAB PO SCH ×3 (07:31→17:00)
[2018-03-25] MEDS: MULTIVITAMIN TAB PO SCH (07:31)
[2018-03-25] MEDS ORDERED: CONSULT PHARMACY STA (08:34)
--- NOTE | 2018-03-25 08:43 | Progress Note ---
Subjective Date of Service: Mar 25, 2018. Subjective pt states she feels improved and that she does not feel that her sinuses are feeling worse infact they are feeling better. she does see ENT for chronic sinusitis and perforated right TM. Problem List Medical Problems: (1) Hypokalemia Status: Acute (2) Hypomagnesemia Status: Acute (3) Neutropenic fever Status: Acute (4) Pancytopenia Status: Acute Review of Systems Constitutional: + weakness, + fatigue, No fever, No chills Eyes: No worsening of vision, No discharge ENT: + nasal symptoms Respiratory: No cough, No shortness of breath Cardiac: No chest pain, No edema Abdomen: No pain, No nausea, No vomiting Musculoskeletal: No joint pain, No muscle pain Neurologic: No memory loss, No paralysis, No weakness Objective Vital Signs Date Time Temp Pulse Resp B/P (MAP) Pulse Ox O2 Delivery O2 Flow Rate FiO2 03/25/18 07:30 37.6 95 17 122/73 (89) 99 Room Air 03/25/18 02:40 37.6 98 18 137/80 92 Room Air 03/25/18 01:53 96 16 120/68 99 Room Air 03/25/18 00:07 87 20 132/72 100 Room Air 03/24/18 22:50 82 14 125/56 97 Room Air 03/24/18 22:47 95 Room Air 03/24/18 21:34 37.4 91 18 116/66 98 Room Air Physical Exam General Appearance: WD/WN, + mild distress, + thin Neck: supple, no JVD Respiratory/Chest: chest non-tender, lungs clear, no accessory muscle use Cardiovascular: regular rate, rhythm, no murmur Abdomen: normal bowel sounds, non tender, soft Extremities: no pedal edema, no calf tenderness Neurologic/Psychiatric: alert, oriented x 3 Laboratory Results Last 24 Hours Test 03/24/18 22:41 03/24/18 22:50 03/24/18 22:53 White Blood Count 2.42 K/uL Red Blood Count 2.51 M/uL Hemoglobin 7.8 g/dL Hematocrit 22.6 % Mean Corpuscular Volume 90.0 fL Mean Corpuscular Hemoglobin 31.1 pg Mean Corpuscular Hemoglobin Concent 34.5 g/dl Platelet Count 24 K/uL Mean Platelet Volume 11.3 fL Neutrophils (%) (Auto) 5.4 % Lymphocytes (%) (Auto) 93.4 % Monocytes (%) (Auto) 0.4 % Eosinophils (%) (Auto) 0.0 % Basophils (%) (Auto) 0.4 % Neutrophils # (Auto) 0.13 K/uL Lymphocytes # (Auto) 2.26 K/uL Monocytes # (Auto) 0.01 K/uL Eosinophils # (Auto) 0.00 K/uL Basophils # (Auto) 0.01 K/uL RDW Standard Deviation 46.8 fL RDW Coefficient of Variation 14.3 % Immature Granulocyte % (Auto) 0.4 % Immature Granulocyte # (Auto) 0.01 K/uL Hypogranular Neutrophils 1+ Smudge Cells PRESENT Dohle Bodies 1+ Platelet Estimate SIGNIFIC DECREASED Erythrocyte Sedimentation Rate 12 mm/hr Prothrombin Time 11.3 SECONDS Prothromb Time International Ratio 1.1 Activated Partial Thromboplast Time 65.1 SECONDS Partial Thromboplastin Ratio 2.5 Sodium Level 139 mmol/L Potassium Level 3.3 mmol/L Chloride Level 110 mmol/L Carbon Dioxide Level 23 mmol/L Anion Gap 6.0 mmol/L Blood Urea Nitrogen 20 mg/dl Creatinine 0.70 mg/dl Est Creatinine Clear Calc Drug Dose 82.3 ml/min Estimated GFR () 103.9 Estimated GFR (Non- 89.7 BUN/Creatinine Ratio 28.6 Random Glucose 94 mg/dl Calcium Level 7.7 mg/dl Magnesium Level 1.6 mg/dl Total Bilirubin 1.8 mg/dl Aspartate Amino Transf (AST/SGOT) 10 U/L Alanine Aminotransferase (ALT/SGPT) 14 U/L Alkaline Phosphatase 97 U/L C-Reactive Protein 5.96 mg/dl Total Protein 5.5 gm/dl Albumin 2.9 gm/dl Globulin 2.6 gm/dl Albumin/Globulin Ratio 1.1 Lipase 68 U/L Urine Color DK YELLOW Urine Appearance CLEAR Urine pH 5.0 Urine Specific [place] 1.020 Urine Protein 1+ Urine Glucose (UA) NEG Urine Ketones NEG Urine Occult Blood 1+ Urine Nitrite NEG Urine Bilirubin NEG Urine Urobilinogen NEG Urine Leukocyte Esterase SMALL Urine WBC (Auto) 1-5 /hpf Urine RBC (Auto) 5-10 /hpf Urine Hyaline Casts (Auto) 1-5 /lpf Urine Epithelial Cells (Auto) >30 /lpf Urine Bacteria (Auto) NEG Bedside Lactic Acid Venous < 0.30 mmol/L Assessment and Plan Neutropenic fever vancomycin IV and Zosyn IV for empiric therapy. Patient has an abnormal CT of temporal bone on 03/06/18 describing an allergic fungal sinusitis involving the maxillary, frontal and ethmoid sinuses. An acute on chronic left sphenoid sinusitis, and and extensive right mastoid sinusitis. fluconazole 200 mg IV daily. She has been followed by ENT for some time, will call CLL/pancytopenia--continue oral chemotherapy Imbruvica 420mg daily. Was transfused 2 units packed RBCs and 1 unit irradiated/leuko-reduced platelets at last admission., transfuse additional unit 03/25 Hemoglobin upon admission 7.8, and platelets are 24. ANC 0.13. Received Neupogen 480 mcg subcu on 03/23, and will give an additional dose 03/25 I did personally call [facility] oncology and they recommended holding chemo and support with blood products Chronic diarrhea-- Send stool for culture and C. difficile. She reports that this is been going on for several months, therefore likely more related to chemo then infection. Started cholestyramine 4 g p.o. twice daily. Start rifaximin 200 mg p.o. 3 times daily. Start Florastor 4 times daily. Electrolyte abnormalities/ hypokalemia/hypomagnesemia-- NSS + KCl 20 mEq 100 mils per hour. Received potassium and magnesium supplement while in the ED. Repeat laboratories in the a.m.
[2018-03-25] MEDS: CHOLESTYRAMINE LIGHT 4 GM PKT PO SCH ×2 (09:31→20:34)
[2018-03-25] MEDS: PANTOprazole INJ 40 MG in SYRINGE 0 ML IV SCH (11:46)
[2018-03-25] MEDS: VANCOMYCIN IV 1,250 MG in SODIUM CHLORIDE 0.9% 250ML 250 ML IV SCH (15:37)
[2018-03-26] VITALS (11 sets, daily range): BP systolic 109–154; BP diastolic 69–84; PULSE 81–104; TEMP 36.6–37.2; O2SAT 98–100
[2018-03-26] MEDS: VANCOMYCIN IV 1,250 MG in SODIUM CHLORIDE 0.9% 250ML 250 ML IV SCH (04:30)
[2018-03-26 06:14] LABS: HEMATOCRIT 21.1 % (37-47); HEMOGLOBIN 7.4 g/dL (12.0-16.0); MEAN CELL VOLUME 90.2 fL (80-100); MEAN CORPUSCULAR HEMOGLOBIN 31.6 pg (25-34); MEAN CORPUSCULAR HGB CONC 35.1 g/dl (32-36); MEAN PLATELET VOLUME 13.4 fL (7.4-10.4); PLATELET COUNT 15 K/uL (130-400); RED CELL DISTRIBUTION WIDTH CV 14.5 % (11.5-14.5); RED CELL DISTRIBUTION WIDTH SD 46.9 fL (36.4-46.3); WHITE BLOOD COUNT 2.69 K/uL (4.8-10.8)
[2018-03-26 06:15] LABS: INR 1.1 (0.9-1.1); PTT PATIENT 30.6 SECONDS (21.0-31.0)
[2018-03-26 06:40] LABS: CALCIUM 7.2 mg/dl (8.5-10.1); CREATININE 0.58 mg/dl (0.60-1.20); POTASSIUM 3.7 mmol/L (3.5-5.1)
[2018-03-26] MEDS: PIPERACILL/TAZOBAC IV 3.375 GM in DEXTROSE 5% 100ML 100 ML IV SCH ×3 (06:52→22:10)
[2018-03-26] MEDS: NSS + 20MEQ KCL 1000ML 1,000 ML IV SCH ×2 (06:53→18:51)
[2018-03-26 07:14] LABS: IG# 0.03 K/uL (0.00-0.02); LYMPH % 88.5 %; LYMPH ABS # 2.38 K/uL (1.2-3.4); MONO % 1.1 %; MONO ABS # 0.03 K/uL (0.11-0.59); NEUT % 9.3 %; NEUT ABS # 0.25 K/uL (1.4-6.5)
[2018-03-26] MEDS: FLUCONAZOLE / NSS 200 MG in PREMIXED NSS 100 ML IV SCH ×2 (07:38→08:51)
[2018-03-26] MEDS: LACTOBACILLUS ACIDOPHILUS (FLORANEX) TAB PO SCH ×3 (07:38→17:37)
[2018-03-26] MEDS: RIFAXIMIN TAB 200 MG TAB PO SCH ×3 (07:38→20:32)
[2018-03-26] MEDS: MULTIVITAMIN TAB PO SCH (07:38)
[2018-03-26] MEDS: CHOLECALCIFEROL 1000 INTER.UNIT TAB PO SCH (07:38)
[2018-03-26] MEDS: CYANOCOBALAMIN 500 MCG TAB (VIT B-12) PO SCH (07:38)
[2018-03-26 09:35] LABS: RETIC COUNT % < 0.5 % (0.5-2.0)
[2018-03-26] MEDS: CHOLESTYRAMINE LIGHT 4 GM PKT PO SCH ×2 (09:51→22:09)
[2018-03-26] MEDS: PANTOprazole INJ 40 MG in SYRINGE 0 ML IV SCH (09:52)
[2018-03-26] MEDS: VANCOMYCIN HCL 125 MG/2.5ML SOLN PO SCH ×3 (13:32→23:10)
[2018-03-26] MEDS: RASPBERRY SYRUP 5 ML UDP PO SCH ×3 (13:32→23:10)
--- NOTE | 2018-03-26 14:05 | HEMATOLOGY CONSULTATION ---
DATE OF CONSULTATION: 03/26/2018 REASON FOR CONSULTATION: Pancytopenia, attributable to ibrutinib. HISTORY OF PRESENT ILLNESS: Zaira Andres is a pleasant 67-year-old female patient with history of chronic lymphocytic leukemia/SLL, who actually just saw in consultation back on 03/23/2018 when she was admitted for generalized weakness, fatigue and dizziness with a notable pancytopenia. She was transfused 2 units of RBCs at that time and stabilized medically, subsequently sent home. Again, she was diagnosed back in 2006 and has been heavily pretreated, most recently placed on ibrutinib by Dr. Cartagena from the . Unfortunately, after discharge, she developed a temperature of 101.7 at home and therefore presented to the Emergency Department to be worked up. Her peripheral blood counts have also continued to falter. Her last dose of ibrutinib was on . Her counts on admission are as follows: WBC 2420, hemoglobin 7.8 and platelet count of 24,000. Unfortunately, within the next day, her platelet count has now fallen to 15,000. PAST MEDICAL HISTORY: Again, significant for chronic lymphocytic leukemia. MEDICATIONS: Ibrutinib 420 mg p.o. daily, cyanocobalamin 500 mg p.o. daily, hydrochlorothiazide 25 mg p.o. daily, cholecalciferol 500 mg p.o. daily. ALLERGIES: TO AZITHROMYCIN. FAMILY HISTORY: Positive for hypertension. SOCIAL HISTORY: The patient is retired, , nonsmoker, nondrinker. REVIEW OF SYSTEMS: Includes fatigue as well as low-grade fever. SKIN: No rashes or lesions. No history of dermatosis. HEENT: Negative for headaches, lightheadedness or dizziness. No acute visual or hearing deficits. No sinus symptoms. She denies sore throat or dysphagia. LYMPHATIC: Again, she suffers from chronic lymphocytic leukemia/SLL. CARDIAC: Negative for angina or palpitations. PULMONARY: Negative for COPD. She is not short of breath, dyspneic or orthopneic at present. GASTROINTESTINAL: Negative for abdominal pain, nausea, vomiting, diarrhea or constipation, hematochezia or melena stools. GENITOURINARY: No hematuria, dysuria, urinary incontinence. PSYCHIATRIC: Negative for anxiety, depression or psychosis. ENDOCRINE: Negative for diabetes or thyroid disease. NEUROLOGIC: Negative for seizure disorder, stroke, or migraine headache. MUSCULOSKELETAL: Negative for arthralgias or myalgias. No muscle weakness. HEMATOLOGIC: Positive for treatment-induced pancytopenia. PHYSICAL EXAMINATION: GENERAL: A well-developed and nourished 67-year-old female patient in no acute distress. VITAL SIGNS: Temperature 36.7, pulse 87, respiratory rate 18, blood pressure 135/79. SKIN: Without rash or lesion. HEENT: Atraumatic, normocephalic. EYES: PERRLA, EOMI. Nares are patent. Throat clear. Tongue midline. NECK: Supple. LYMPHATIC: No cervical, supraclavicular, axillary lymph nodes. HEART: Regular rate and rhythm. LUNGS: Clear to auscultation bilaterally. ABDOMEN: Soft, nontender, nondistended without palpable hepatosplenomegaly. EXTREMITIES: No calf tenderness or swelling. No clubbing, cyanosis or edema. NEUROLOGIC: Grossly intact. IMPRESSION: 1. Pancytopenia. 2. Chronic lymphocytic leukemia in full relapse. PLAN: In summary, Zaira was admitted a couple of days ago with pancytopenia, generalized weakness and low-grade fever. She was transfused and worked up from a microbiologic standpoint and subsequently sent home. She returns less than 2 days later with a low-grade fever and worsening counts. The primary service contacted Dr. Cartagena from the and he recommended discontinuing ibrutinib for the foreseeable future. She will require transfusional support, recommended single donor platelets to be administered today. The patient has already received 2 units of packed RBCs and will receive 2 more units later on today. Continue to follow her counts daily. Obviously if fever persists, may need to empirically cover her, specifically for gram negatives, if not already done so. I will continue to follow Zaira periodically through her hospital stay. Zaira informed me she has established outpatient followup. I will confer with Dr. Cartagena moving forward. May consider upon rechallenge possibly an alternating dose as to avoid significant cytopenias in the future. Thank you for allowing me to participate in her care.
--- NOTE | 2018-03-26 15:37 | Progress Note ---
Subjective Date of Service: Mar 26, 2018. Subjective this pt is feeling better, did have C Diff positive and also has gram negative blood cultures Problem List Medical Problems: (1) Hypokalemia Status: Acute (2) Hypomagnesemia Status: Acute (3) Neutropenic fever Status: Acute (4) Pancytopenia Status: Acute Review of Systems Constitutional: + weakness, + fatigue, No fever, No chills Respiratory: No cough, No shortness of breath Cardiac: No chest pain, No edema Abdomen: + diarrhea, No pain, No nausea, No vomiting Female : No dysuria, No incontinence Neurologic: No memory loss, No paralysis Psychiatric: No depression symptoms, No anhedonism Objective Vital Signs Date Time Temp Pulse Resp B/P (MAP) Pulse Ox O2 Delivery O2 Flow Rate FiO2 03/26/18 15:14 37.2 97 18 154/80 (104) 99 Room Air 03/26/18 13:00 37.0 92 18 144/70 100 03/26/18 12:30 37.1 85 18 136/79 03/26/18 12:00 37.0 84 18 136/80 03/26/18 11:45 36.7 87 18 135/79 100 03/26/18 11:32 36.9 81 18 122/78 03/26/18 08:00 99 Room Air 03/26/18 07:55 36.6 81 18 109/69 (82) 99 Room Air 03/26/18 03:49 36.6 91 20 125/76 (92) 98 Room Air 03/26/18 00:00 Room Air 03/25/18 22:58 36.7 85 16 126/74 (91) 98 Room Air 03/25/18 21:16 37.5 92 16 134/83 98 03/25/18 20:22 36.9 84 18 109/66 98 03/25/18 20:00 Room Air 03/25/18 19:10 37.0 89 18 123/73 (90) 99 Room Air 03/25/18 19:10 37.0 89 18 123/73 99 03/25/18 19:10 37.0 89 18 123/73 99 03/25/18 18:40 36.9 92 18 111/69 97 03/25/18 18:10 37.0 96 18 135/68 98 03/25/18 17:55 37.4 97 18 128/76 97 03/25/18 17:41 36.7 80 18 134/80 100 03/25/18 15:41 36.8 96 16 137/67 (90) 94 Room Air Physical Exam General Appearance: WD/WN, + mild distress Eyes: normal inspection, sclerae normal Neck: supple, no JVD Respiratory/Chest: chest non-tender, lungs clear, normal breath sounds Cardiovascular: regular rate, rhythm, no murmur Abdomen: normal bowel sounds, non tender, soft Extremities: no pedal edema, no calf tenderness Neurologic/Psychiatric: alert, oriented x 3 Laboratory Results Last 24 Hours Test 03/25/18 16:47 03/26/18 05:34 03/26/18 09:01 Bedside Glucose 93 mg/dl White Blood Count 2.69 K/uL Red Blood Count 2.34 M/uL Hemoglobin 7.4 g/dL Hematocrit 21.1 % Mean Corpuscular Volume 90.2 fL Mean Corpuscular Hemoglobin 31.6 pg Mean Corpuscular Hemoglobin Concent 35.1 g/dl Platelet Count 15 K/uL Mean Platelet Volume 13.4 fL Neutrophils (%) (Auto) 9.3 % Lymphocytes (%) (Auto) 88.5 % Monocytes (%) (Auto) 1.1 % Eosinophils (%) (Auto) 0.0 % Basophils (%) (Auto) 0.0 % Neutrophils # (Auto) 0.25 K/uL Lymphocytes # (Auto) 2.38 K/uL Monocytes # (Auto) 0.03 K/uL Eosinophils # (Auto) 0.00 K/uL Basophils # (Auto) 0.00 K/uL RDW Standard Deviation 46.9 fL RDW Coefficient of Variation 14.5 % Immature Granulocyte % (Auto) 1.1 % Immature Granulocyte # (Auto) 0.03 K/uL Smudge Cells PRESENT Toxic Vacuolation 1+ Dohle Bodies 1+ Large Platelets 1+ Prothrombin Time 11.4 SECONDS Prothromb Time International Ratio 1.1 Activated Partial Thromboplast Time 30.6 SECONDS Partial Thromboplastin Ratio 1.2 Sodium Level 143 mmol/L Potassium Level 3.7 mmol/L Chloride Level 115 mmol/L Carbon Dioxide Level 22 mmol/L Anion Gap 6.0 mmol/L Blood Urea Nitrogen 8 mg/dl Creatinine 0.58 mg/dl Est Creatinine Clear Calc Drug Dose 99.8 ml/min Estimated GFR () 110.5 Estimated GFR (Non- 95.4 BUN/Creatinine Ratio 13.5 Random Glucose 81 mg/dl Calcium Level 7.2 mg/dl Magnesium Level 1.8 mg/dl Absolute Reticulocyte Count < 0.02 10^6/uL Percent Reticulocyte Count < 0.5 % Lactate Dehydrogenase 156 U/L Assessment and Plan Neutropenic fever, gram negative bactermia, C diff vancomycin IV and Zosyn IV for gram negative bactermia awaiting sensitivities Patient has an abnormal CT of temporal bone on 03/06/18 describing an allergic fungal sinusitis involving the maxillary, frontal and ethmoid sinuses. An acute on chronic left sphenoid sinusitis, and and extensive right mastoid sinusitis. fluconazole 200 mg IV daily. C diff will start on oral vancomycin Started cholestyramine 4 g p.o. twice daily. CLL/pancytopenia--continue oral chemotherapy Imbruvica 420mg daily.--> this will be stopped Was transfused 2 units packed RBCs and 1 unit irradiated/leuko-reduced platelets at last admission., transfuse additional units, of blood and platelets Received Neupogen 480 mcg subcu on 03/23, additional dose 03/25 I did personally call [facility] [place] [place] oncology and they recommended holding chemo and support with blood products Electrolyte abnormalities/ hypokalemia/hypomagnesemia-- NSS + KCl 20 mEq 100 mils per hour. dvt prevetion is contraindicated due to low platelets
[2018-03-26] MEDS: LORAZEPAM 0.5 MG TAB PO PRN (23:10)
[2018-03-27] VITALS (15 sets, daily range): BP systolic 119–140; BP diastolic 71–85; PULSE 79–90; TEMP 36.7–37.5; O2SAT 96–100
[2018-03-27] MEDS ORDERED: VANCOMYCIN TROUGH ONE (03:30)
[2018-03-27] MEDS: NSS + 20MEQ KCL 1000ML 1,000 ML IV SCH ×2 (04:54→20:43)
[2018-03-27] MEDS: RASPBERRY SYRUP 5 ML UDP PO SCH ×4 (05:38→23:42)
[2018-03-27] MEDS: PIPERACILL/TAZOBAC IV 3.375 GM in DEXTROSE 5% 100ML 100 ML IV SCH ×2 (05:38→18:07)
[2018-03-27] MEDS: VANCOMYCIN HCL 125 MG/2.5ML SOLN PO SCH ×4 (05:38→23:42)
[2018-03-27 05:59] LABS: HEMATOCRIT 19.4 % (37-47); HEMOGLOBIN 6.6 g/dL (12.0-16.0); MEAN CELL VOLUME 90.7 fL (80-100); MEAN CORPUSCULAR HEMOGLOBIN 30.8 pg (25-34); MEAN PLATELET VOLUME 11.3 fL (7.4-10.4); PLATELET COUNT 18 K/uL (130-400); RED CELL DISTRIBUTION WIDTH CV 14.5 % (11.5-14.5); RED CELL DISTRIBUTION WIDTH SD 47.5 fL (36.4-46.3); WHITE BLOOD COUNT 2.28 K/uL (4.8-10.8)
[2018-03-27 06:01] LABS: PTT PATIENT 29.6 SECONDS (21.0-31.0)
[2018-03-27 06:18] LABS: CREATININE 0.52 mg/dl (0.60-1.20); POTASSIUM 3.9 mmol/L (3.5-5.1)
[2018-03-27 07:23] LABS: IG# 0.02 K/uL (0.00-0.02); LYMPH % 90.4 %; LYMPH ABS # 2.06 K/uL (1.2-3.4); MONO % 0.9 %; MONO ABS # 0.02 K/uL (0.11-0.59); NEUT % 7.8 %; NEUT ABS # 0.18 K/uL (1.4-6.5)
[2018-03-27] MEDS: FLUCONAZOLE / NSS 200 MG in PREMIXED NSS 100 ML IV SCH ×2 (07:33→08:40)
[2018-03-27] MEDS: LACTOBACILLUS ACIDOPHILUS (FLORANEX) TAB PO SCH ×3 (07:39→18:08)
[2018-03-27] MEDS: CYANOCOBALAMIN 500 MCG TAB (VIT B-12) PO SCH (07:40)
[2018-03-27] MEDS: RIFAXIMIN TAB 200 MG TAB PO SCH (07:41)
[2018-03-27] MEDS ORDERED: NURSING VERBAL MED ORDER ONE ×2 (08:30→21:00)
[2018-03-27] MEDS: MULTIVITAMIN TAB PO SCH (08:43)
[2018-03-27] MEDS: CHOLECALCIFEROL 1000 INTER.UNIT TAB PO SCH (08:43)
--- NOTE | 2018-03-27 09:28 | HEME/ONC PROGRESS NOTE ---
DATE: 03/27/2018 DIAGNOSES: 1. Pancytopenia, attributable to ibrutinib. 2. Clostridium difficile. 3. Pseudomonal bacteremia. SUBJECTIVE: I had the pleasure of visiting with Zaira today at bedside. Her spirits are good. Clinically, she seems to be doing relatively well; however, has suffered intermittent low-grade fever. She is currently on broad spectrum antimicrobials including antifungals for radiographically suggested sinusitis. Blood cultures grew pseudomonas and stool is positive for Clostridium. Her blood counts remain depressed. She received single donor platelets yesterday and probably should receive 2 units of packed RBCs today. PHYSICAL EXAMINATION: GENERAL: She is in no acute distress. VITAL SIGNS: Temperature 36.7, pulse 89, respiratory rate 18, blood pressure 126/77. SKIN: Without rash or lesion. HEENT: Oral mucosa without erythema or ulceration. NECK: Supple. HEART: Regular rate and rhythm. LUNGS: Clear to auscultation bilaterally. ABDOMEN: Soft, nontender, nondistended. EXTREMITIES: No clubbing, cyanosis, or edema. NEUROLOGIC: Grossly intact. LABORATORY DATA: WBC count 2280, hemoglobin 6.6, platelet count 18,000. Absolute neutrophil count 180. Sodium 141, potassium 3.9, chloride 114, carbon dioxide 20, creatinine 0.52, BUN 6, magnesium slightly decreased to 1.6. IMPRESSION: 1. Pancytopenia attributable to ibrutinib. 2. Clostridium difficile colitis. 3. Pseudomonal bacteremia. 4. Presumed fungal sinusitis. 5. Hypomagnesemia. PLAN: I visited Zaira at bedside this morning. Clinically, she actually looks pretty good considering positive stool and blood cultures. She is on empiric Diflucan for presumed fungal sinusitis seen radiographically. She is on triple coverage for pseudomonas and oral vancomycin for Clostridium. Again, would proceed with transfusion 2 units packed RBCs today. Additionally, will add Neupogen 480 mcg subQ daily over the next [address] Mata will cover the service tomorrow and will return Friday to . I have nothing further to add and agree with current medical management. Thank you again for assisting me in the care of this very pleasant patient. Zaira has also stated that she will follow with me exclusively from here on out and I have recommended that she remain off ibrutinib until I see her in the office expediently post-discharge. JACKIE
--- NOTE | 2018-03-27 09:49 | Clinical Documentation Query ---
QUERY 1 OF [address] SWENSON, In your clinical opinion is this patient being managed for: ( ) Sepsis, POA ( xx) Not Agree ( ) Other explanation of clinical findings (No explanation is considered a No Response) ( ) Unable to determine ( ) Need to Discuss (Phone CDS or qliq) (No discussion is considered a No Response) The medical record reflects the following clinical findings, treatment, and risk factors. Clinical Indicators: 67 yo female presenting with neutropenic fever. Reportedly temp of 101.7 at home and had been taking tylenol and motrin C[employer]. Pt also reported chills, diarrhea and feeling clammy. WBC 2.42, Hgb 7.8, Hct 22.6, plts 24, Blood cx x 1 with pseudomonas aeruginosa. Stool for C diff +. Treatment: hem/onc consult, IV NSS bolus then continuous fluids with KCL, IV cefepime, IV vancomycin changed to oral, IV zosyn, IV diflucan Risk Factors: CLL on current chemo, sinusitis, C diff colitis QUERY 2 OF 3 In your clinical opinion is this patient being managed for: ( xx ) Chemotherapy induced pancytopenia ( ) Not Agree ( ) Other explanation of clinical findings (No explanation is considered a No Response) ( ) Unable to determine ( ) Need to Discuss (Phone CDS or qliq) (No discussion is considered a No Response) The medical record reflects the following clinical findings, treatment, and risk factors. Clinical Indicators: WBC 2.42, Hgb 7.8, Hct 22.6, plts 24 Treatment: hold further oral chemo, hem/onc consult, transfuse PRBC and platelets, additional neupogen dose, monitor CBC Risk Factors: CLL on chronic oral chemotherapy QUERY 3 OF 3 In your clinical opinion is this patient being managed for: ( xx) C difficile colitis ( ) Not Agree ( ) Other explanation of clinical findings (No explanation is considered a No Response) ( ) Unable to determine ( ) Need to Discuss (Phone CDS or qliq) (No discussion is considered a No Response) The medical record reflects the following clinical findings, treatment, and risk factors. Clinical Indicators: Documentation indicates pt presented with chronic diarrhea and treatment plan included collection of stool for culture and C diff. Subsequent documentation indicates pt did have C diff positive Treatment: oral vancomycin, cholestyramine Risk Factors: CLL, oral chemotherapy Please clarify and document your clinical opinion in the progress notes and discharge summary. Terms such as "probable", "suspected", "likely", "questionable", "possible", or "still to be ruled out" are acceptable. IF IN AGREEMENT, YOU MUST DOCUMENT ABOVE DIAGNOSTIC STATEMENT IN DAILY PROGRESS NOTES AND DISCHARGE SUMMARY. This document is not part of the patient's record. Thank You, Fabby Crump RN [phone]
[2018-03-27] MEDS: CHOLESTYRAMINE LIGHT 4 GM PKT PO SCH ×2 (10:29→20:45)
[2018-03-27] MEDS: PANTOprazole INJ 40 MG in SYRINGE 0 ML IV SCH (10:31)
[2018-03-27] MEDS: FILGRASTIM 480 MCG/1.6 ML VIAL SQ SCH (10:36)
--- NOTE | 2018-03-27 13:46 | Progress Note ---
Subjective Date of Service: Mar 27, 2018. Subjective I met with the patient and her at bedside updated on care plan, pt feels weak but overall improved Problem List Medical Problems: (1) Hypokalemia Status: Acute (2) Hypomagnesemia Status: Acute (3) Neutropenic fever Status: Acute (4) Pancytopenia Status: Acute Review of Systems Constitutional: + weakness, + fatigue, No fever, No chills Respiratory: No cough, No shortness of breath, No dyspnea on exertion Cardiac: No chest pain, No edema Abdomen: + diarrhea, No pain, No vomiting Musculoskeletal: No joint pain, No muscle pain Neurologic: No memory loss, No weakness Psychiatric: + depression symptoms, No anhedonism Objective Vital Signs Date Time Temp Pulse Resp B/P (MAP) Pulse Ox O2 Delivery O2 Flow Rate FiO2 03/27/18 13:20 37.2 90 14 119/84 100 03/27/18 12:20 36.8 85 14 119/75 99 03/27/18 11:50 36.7 79 14 120/71 100 03/27/18 11:40 36.8 80 14 136/71 99 03/27/18 11:20 36.7 86 18 120/77 100 0.0 03/27/18 08:00 Room Air 03/27/18 07:33 36.7 89 18 126/77 (93) 98 Room Air 03/27/18 04:37 36.7 89 18 121/80 (94) 98 Room Air 03/27/18 00:00 Room Air 03/26/18 23:14 36.9 85 18 134/74 (94) 99 Room Air 03/26/18 19:30 36.9 104 18 151/84 (106) 98 Room Air 03/26/18 15:45 Room Air 03/26/18 15:14 37.2 97 18 154/80 (104) 99 Room Air Physical Exam General Appearance: WD/WN, + mild distress Eyes: normal inspection, sclerae normal Respiratory/Chest: chest non-tender, lungs clear, normal breath sounds Cardiovascular: regular rate, rhythm, no murmur Abdomen: normal bowel sounds, non tender, soft Extremities: no pedal edema, no calf tenderness Neurologic/Psychiatric: alert, oriented x 3 Laboratory Results Last 24 Hours Test 03/27/18 05:35 White Blood Count 2.28 K/uL Red Blood Count 2.14 M/uL Hemoglobin 6.6 g/dL Hematocrit 19.4 % Mean Corpuscular Volume 90.7 fL Mean Corpuscular Hemoglobin 30.8 pg Mean Corpuscular Hemoglobin Concent 34.0 g/dl Platelet Count 18 K/uL Mean Platelet Volume 11.3 fL Neutrophils (%) (Auto) 7.8 % Lymphocytes (%) (Auto) 90.4 % Monocytes (%) (Auto) 0.9 % Eosinophils (%) (Auto) 0.0 % Basophils (%) (Auto) 0.0 % Neutrophils # (Auto) 0.18 K/uL Lymphocytes # (Auto) 2.06 K/uL Monocytes # (Auto) 0.02 K/uL Eosinophils # (Auto) 0.00 K/uL Basophils # (Auto) 0.00 K/uL RDW Standard Deviation 47.5 fL RDW Coefficient of Variation 14.5 % Immature Granulocyte % (Auto) 0.9 % Immature Granulocyte # (Auto) 0.02 K/uL Toxic Granulation 1+ Toxic Vacuolation 1+ Dohle Bodies 2+ Prothrombin Time 11.0 SECONDS Prothromb Time International Ratio 1.0 Activated Partial Thromboplast Time 29.6 SECONDS Partial Thromboplastin Ratio 1.1 Sodium Level 141 mmol/L Potassium Level 3.9 mmol/L Chloride Level 114 mmol/L Carbon Dioxide Level 20 mmol/L Anion Gap 7.0 mmol/L Blood Urea Nitrogen 6 mg/dl Creatinine 0.52 mg/dl Est Creatinine Clear Calc Drug Dose 111.3 ml/min Estimated GFR () 114.6 Estimated GFR (Non- 98.9 BUN/Creatinine Ratio 11.7 Random Glucose 83 mg/dl Calcium Level 7.0 mg/dl Magnesium Level 1.6 mg/dl Assessment and Plan Neutropenic fever, gram negative bacteremia but not sepsis, C diff vancomycin IV and Zosyn IV for gram negative bactermia awaiting sensitivities Patient has an abnormal CT of temporal bone on 03/06/18 describing an allergic fungal sinusitis involving the maxillary, frontal and ethmoid sinuses. An acute on chronic left sphenoid sinusitis, and and extensive right mastoid sinusitis. fluconazole 200 mg IV daily. C diff colitis will start on oral vancomycin Started cholestyramine 4 g p.o. twice daily. CLL/pancytopenia--discontinue oral chemotherapy Imbruvica her pancytopenia is a combination of chemotherapy induced and her underlying disease process Was transfused 4 units packed RBCs and 1 unit irradiated/leuko-reduced platelets Received Neupogen 480 mcg subcu on 03/23, additional dose 03/25, 03/27 I did personally call [facility] [place] oncology and they recommended holding chemo and support with blood products I met with Dr arndt and discussed her care plan 03/26 Electrolyte abnormalities/ hypokalemia/hypomagnesemia-- NSS + KCl 20 mEq 100 mils per hour. dvt prevetion is contraindicated due to low platelets
--- NOTE | 2018-03-27 16:34 | Medical Consult ---
Consultation Date of Consultation: Mar 27, 2018. Attending Physician: Keny Segura M.D. Reason for Consultation: Pseudomonas bacteremia in the face of neutropenia History of Present Illness 67-year-old female with diagnosis of lymphocytic leukemia, on new chemotherapy, recent hospitalization for anemia requiring transfusion, who was admitted to the hospital with 1 day history fever greater than 101 with CBC showing significant neutropenia. Patient has been complaining for several weeks of sinus congestion, nasal drainage, and drainage from her right ear. CT scan on admission showed pansinusitis with mastoid effusion. Blood cultures now positive for Pseudomonas aeruginosa. Patient has been on Zosyn, fever has improved. Patient has indwelling a port, has had no problems with sight or with her infusions. Past Medical/Surgical History Medical Problems: (1) Hypokalemia Status: Acute (2) Hypomagnesemia Status: Acute (3) Neutropenic fever Status: Acute (4) Pancytopenia Status: Acute Medical Problems: (1) CLL (chronic lymphocytic leukemia) Family History Noncontributory Social History Smoking Status: Never Smoker Smokeless Tobacco Use: No Alcohol Use: none Drug Use: none Marital Status: Housing Status: lives with family Occupation Status: retired Allergies Coded Allergies: Azithromycin (Verified Allergy, Unknown, HIVES, 03/24/18) Current Inpatient Medications Current Inpatient Medications Medications (Trade) Dose Ordered Sig/Quita Route Start Time Stop Time Status Last Admin Dose Admin Acetaminophen (Tylenol Tab) 650 mg Q4H PRN PO 03/25/18 01:45 04/24/18 01:44 Cholecalciferol (Vitamin D Tab) 1,000 inter.unit DAILY PO 03/25/18 08:00 04/24/18 08:59 03/27/18 08:43 1,000 INTER.UNIT Cyanocobalamin (Vitamin B-12 Tab) 500 mcg DAILY PO 03/25/18 08:00 04/24/18 08:59 03/27/18 07:40 500 MCG Lorazepam (Ativan Tab) 0.5 mg HS PRN PO 03/25/18 01:45 04/24/18 01:44 03/26/18 23:10 0.5 MG Multivitamins (Multivitamin Tab) 1 tab DAILY PO 03/25/18 08:00 04/24/18 08:59 03/27/18 08:43 1 TAB Miscellaneous Information (Order Awaiting Action) 1 ea QS N/A 03/25/18 08:00 04/24/18 07:59 Piperacillin Sod/ Tazobactam Sod 3.375 gm/Dextrose 115 ml @ 28.75 mls/ hr Q8H IV 03/25/18 08:00 04/08/18 07:59 03/27/18 05:38 28.75 MLS/HR Miscellaneous Information (Consult) 1 ea UD PRN N/A 03/25/18 01:45 04/24/18 01:44 Lactobacillus Acidophilus (Floranex Tab) 4 tab TIDM PO 03/25/18 08:00 04/24/18 07:59 03/27/18 13:28 4 TAB Cholestyramine Resin (Questran Powder Light) 4 gm BID@10,22 PO 03/25/18 10:00 04/24/18 09:59 03/27/18 10:29 4 GM Ondansetron HCl (Zofran Odt) 8 mg Q6H PRN PO 03/25/18 02:00 04/24/18 01:59 Potassium Chloride/Sodium Chloride 1,000 ml @ 100 mls/hr Q10H IV 03/25/18 03:30 04/24/18 03:29 03/27/18 04:54 100 MLS/HR Pantoprazole Sodium 40 mg/ Syringe 10 ml @ 5 mls/min DAILY@11 IV 03/25/18 11:00 04/24/18 10:59 03/27/18 10:31 5 MLS/MIN Miscellaneous (Iv Fluids Completed) 1 ea PRN PRN N/A 03/25/18 06:15 03/25/19 06:14 Heparin Sodium (Porcine) (Heparin 100 Unit/ml 5ml Flush) 5 ml PRN PRN IV 03/26/18 00:45 04/25/18 00:44 Vancomycin HCl (Vancomycin Oral Soln) 125 mg Q6 PO 03/26/18 12:00 04/05/18 11:59 03/27/18 12:20 125 MG Raspberry (Raspberry Syrup 5ml Cup) 5 ml Q6 PO 03/26/18 12:00 04/09/18 11:59 03/27/18 12:20 5 ML Filgrastim (Neupogen Sq) 480 mcg DAILY SQ 7/27/18 09:00 03/28/18 08:01 03/27/18 10:36 480 MCG Review of Systems Constitutional: + fever, + chills, + weakness Eyes: No problem reported ENT: + hearing loss, + nasal symptoms Respiratory: + cough, No hemoptysis Cardiovascular: No problem reported Abdomen: No problem reported Musculoskeletal: No problem reported Genitourinary - Female: No problem reported Neurologic: No problem reported Psychiatric: No problem reported Endocrine: No problem reported Hematologic / Lymphatic: No problem reported Integumentary: No problem reported Allergic / Immunologic: No problem reported Physical Exam Date Time Temp Pulse Resp B/P (MAP) Pulse Ox O2 Delivery O2 Flow Rate FiO2 03/27/18 15:45 36.8 84 18 137/85 100 03/27/18 15:15 36.8 86 20 134/82 100 03/27/18 14:45 36.9 86 14 140/84 97 03/27/18 14:30 37.5 85 14 134/81 99 03/27/18 14:15 36.8 88 18 126/74 03/27/18 13:20 37.2 90 14 119/84 100 03/27/18 12:20 36.8 85 14 119/75 99 03/27/18 11:50 36.7 79 14 120/71 100 03/27/18 11:40 36.8 80 14 136/71 99 03/27/18 11:20 36.7 86 18 120/77 100 0.0 03/27/18 08:00 Room Air 03/27/18 07:33 36.7 89 18 126/77 (93) 98 Room Air 03/27/18 04:37 36.7 89 18 121/80 (94) 98 Room Air 03/27/18 00:00 Room Air 03/26/18 23:14 36.9 85 18 134/74 (94) 99 Room Air 03/26/18 19:30 36.9 104 18 151/84 (106) 98 Room Air General Appearance: WD/WN, no apparent distress Head: normocephalic, atraumatic Eyes: normal inspection, EOMI, sclerae normal ENT: normal ENT inspection, pharynx normal Neck: supple, no adenopathy, thyroid normal, trachea midline Respiratory/Chest: chest non-tender, lungs clear, normal breath sounds, no respiratory distress Cardiovascular: regular rate, rhythm, no gallop, no murmur Abdomen/GI: normal bowel sounds, non tender, soft, no organomegaly Back: normal inspection, no CVA tenderness Extremities/Musculoskelatal: no calf tenderness, normal capillary refill, non- tender Neurologic/Psych: no motor/sensory deficits, alert, oriented x 3 Skin: normal color, warm/dry, no rash, + pertinent finding (A port site without evidence of infection) Lymphatic: no adenopathy Laboratory Results RUN DATE: 03/27/18 [facility] LAB PAGE 1 RUN TIME: 806 Specimen Inquiry PATIENT: OMAR KULKARNI LOC: [place] U # : [id number] AGE/SX: 67/F ROOM: 07 REG : 03/26/[address]: eKny Segura M : 1950 BED: 1 DIS : STATUS: ADM IN TLOC: SPEC #: [id number] MADISYN: 03/24/18 STATUS: COMP REQ #: [id number] RECD: 03/24/[address]: Jeb Mims DO SOURCE: BLOOD ENTR: 03/24/[address] [facility] [address]: Parisa Black M.D. [facility]: ORDERED: BLOOD CULTURE Procedure Result Verified Site BLD CULT Final 03/27/18-0807 Organism 1 PSEUDOMONAS AERUGINOSA SENS SENSITIVITY TO FOLLOW Phoned Positive Blood Culture Gram Stain Report to CESAR NOVAK on 03/25/18 At 2013 By JULIANNE. Results were verbalized back to JULIANNE. 1. PSEUDOMONAS AERUGINOSA Target Route Dose RX AB Cost M.I.C. IQ ------ ----- ------ -- ------ -------- - ------ CEFTAZIDIME S <=1 CEFEPIME S <=4 IMIPENEM S <=1 AZTREONAM S <=4 GENTAMICIN S <=4 TOBRAMYCIN S <=4 AMIKACIN S <=16 CIPROFLOXACIN S <=1 LEVOFLOXACIN S <=2 PIP/TAZO S <=16 S = SENSITIVE I = INTERMEDIATE R = RESISTANT Last 24 Hours Test 03/27/18 05:35 White Blood Count 2.28 K/uL Red Blood Count 2.14 M/uL Hemoglobin 6.6 g/dL Hematocrit 19.4 % Mean Corpuscular Volume 90.7 fL Mean Corpuscular Hemoglobin 30.8 pg Mean Corpuscular Hemoglobin Concent 34.0 g/dl Platelet Count 18 K/uL Mean Platelet Volume 11.3 fL Neutrophils (%) (Auto) 7.8 % Lymphocytes (%) (Auto) 90.4 % Monocytes (%) (Auto) 0.9 % Eosinophils (%) (Auto) 0.0 % Basophils (%) (Auto) 0.0 % Neutrophils # (Auto) 0.18 K/uL Lymphocytes # (Auto) 2.06 K/uL Monocytes # (Auto) 0.02 K/uL Eosinophils # (Auto) 0.00 K/uL Basophils # (Auto) 0.00 K/uL RDW Standard Deviation 47.5 fL RDW Coefficient of Variation 14.5 % Immature Granulocyte % (Auto) 0.9 % Immature Granulocyte # (Auto) 0.02 K/uL Toxic Granulation 1+ Toxic Vacuolation 1+ Dohle Bodies 2+ Prothrombin Time 11.0 SECONDS Prothromb Time International Ratio 1.0 Activated Partial Thromboplast Time 29.6 SECONDS Partial Thromboplastin Ratio 1.1 Sodium Level 141 mmol/L Potassium Level 3.9 mmol/L Chloride Level 114 mmol/L Carbon Dioxide Level 20 mmol/L Anion Gap 7.0 mmol/L Blood Urea Nitrogen 6 mg/dl Creatinine 0.52 mg/dl Est Creatinine Clear Calc Drug Dose 111.3 ml/min Estimated GFR () 114.6 Estimated GFR (Non- 98.9 BUN/Creatinine Ratio 11.7 Random Glucose 83 mg/dl Calcium Level 7.0 mg/dl Magnesium Level 1.6 mg/dl Patient Name: OMAR KULKARNI Unit Number: [id number] Dictated: 03/25/18656 Transcribed: 03/25/18656 ARG Printed Date/Time: [~ rep prt dt]/[~ rep prt tm] [~ rep ct labl] - [~ rep ct ivnm] [facility] [place] [address] Dictated: 03/25/18656 Transcribed: 03/25/18656 ARG Printed Date/Time: [~ rep prt dt]/[~ rep prt tm] [~ rep ct labl] - [~ rep ct ivnm] [~ rep ct add3]] CT SINUSES-MAXILLOFACIAL W/O CLINICAL HISTORY: Neutropenic fever. COMPARISON STUDY: 03/06/2018 TECHNIQUE: CT scan of the paranasal sinuses was performed in the axial plane. Coronal reconstructed images were obtained and reviewed. A dose lowering technique was utilized adhering to the principles of ALARA. CT DOSE: FINDINGS: There is bilateral posterior triangle cervical lymphadenopathy. There is no hydrocephalus. There is extensive right mastoid effusion. There is a small left mastoid effusion. There is soft tissue/fluid within the right middle ear cavity. There is mild sphenoid sinus mucosal thickening. Multiple ethmoid air cells are opacified. There is complete opacification of the left maxillary sinus. There is marked mucosal disease within the right maxillary sinus. The right frontal sinus is nearly completely opacified. There is marked mucosal disease in the left frontal sinus. Sinus secretions are of increased density raising the possibility of a fungal etiology. Both ostiomeatal units are occluded by soft tissue. The olfactory grooves measure 4 mm in depth. The right ethmoidal notches is protected. The left ethmoidal notches are unprotected. The frontal recesses are occluded. IMPRESSION: 1. Extensive pansinus disease. Increased density in the sinuses raise the possibility of a fungal etiology 2. Extensive right mastoid effusion and small left mastoid effusion. There is fluid within the right middle ear cavity. 3. Cervical lymphadenopathy Electronically signed by: Chintan Monae M.D. 03/25/2018 7:03 AM Dictated Date/Time: 03/25/2018 6:57 AM The status of this report is Signed. Draft = Not yet reviewed or approved by Radiologist. Signed = Reviewed and approved by Radiologist. <AttendingPhy>Cesar Chambers M.D.</AttendingPhy> <FamilyPhy>Parisa Black M.D.</FamilyPhy> <PrimaryPhy>Parisa Black M.D.</PrimaryPhy> <UnitNumber> [id number]</UnitNumber> <VisitNumber>[id number]</VisitNumber> <PatientName> OMAR KULKARNI</PatientName> <DateOfBirth>1950</DateOfBirth> <Location>C.4[facility]</ Location> <ServiceDate>03/24/18</ServiceDate> <MNE>ESINDI</MNE> <OrderingPhy> Cesar Chambers M.D.</OrderingPhy> <OrderingPhyMNE>f rep ord dr beltran</ OrderingPhyMNE> <DictatingPhyMNE>f rep dict dr beltran</DictatingPhyMNE> <CCListMNE> f rep ct alexe</CCListMNE> <AdmittingPhyMNE>f pt admit dr beltran</AdmittingPhyMNE> < AttendingPhyMNE>f pt attend dr beltran</AttendingPhyMNE> <ConsultingPhyMNE>f pt consult dr beltran</ConsultingPhyMNE> <FamilyPhyMNE>f pt fam dr beltran</FamilyPhyMNE> <OtherPhyMNE>f pt other dr beltran</OtherPhyMNE> < PrimaryPhyMNE>f pt prim care dr beltran</PrimaryPhyMNE> <ReferringPhyMNE>f pt referring dr beltran</ReferringPhyMNE> Assessment & Plan 67-year-old female with 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 Would recommend use of IV cefepime 2 g every 8 hours, and consider ENT consultation. Also patient has indwelling A-Port and should give strong consideration to removal given positive blood cultures for Pseudomonas. Will discuss with all involved. Will follow.
[2018-03-27] MEDS: LORAZEPAM 0.5 MG TAB PO PRN (21:42)
[2018-03-28] MEDS: PIPERACILL/TAZOBAC IV 3.375 GM in DEXTROSE 5% 100ML 100 ML IV SCH (01:48)
[2018-03-28] MEDS: VANCOMYCIN HCL 125 MG/2.5ML SOLN PO SCH ×4 (05:48→23:47)
[2018-03-28] MEDS: RASPBERRY SYRUP 5 ML UDP PO SCH ×4 (05:48→23:47)
[2018-03-28 06:23] LABS: CREATININE 0.57 mg/dl (0.60-1.20)
[2018-03-28] MEDS: NSS + 20MEQ KCL 1000ML 1,000 ML IV SCH ×2 (07:10→17:49)
[2018-03-28] MEDS: CHOLECALCIFEROL 1000 INTER.UNIT TAB PO SCH (08:02)
[2018-03-28] MEDS: LACTOBACILLUS ACIDOPHILUS (FLORANEX) TAB PO SCH ×3 (08:03→17:48)
[2018-03-28] MEDS: MULTIVITAMIN TAB PO SCH (08:03)
[2018-03-28] MEDS: CYANOCOBALAMIN 500 MCG TAB (VIT B-12) PO SCH (08:04)
[2018-03-28 08:05] VITALS: BP 142/84; PULSE 81; TEMP 36.5; O2SAT 98
[2018-03-28 08:30] VITALS: O2SAT 98
--- NOTE | 2018-03-28 09:39 | Progress Note ---
Subjective Date of Service: Mar 28, 2018. Subjective this pt is doing well, the pt is understanding of the recommendations of the ID provider to have A port removed and ENT consideration for the ct of her sinus reading I personally spoke to Dr Carter and he will evaluate the patient Problem List Medical Problems: (1) Hypokalemia Status: Acute (2) Hypomagnesemia Status: Acute (3) Neutropenic fever Status: Acute (4) Pancytopenia Status: Acute Review of Systems Constitutional: + weakness, + fatigue, No fever, No chills Respiratory: No cough, No shortness of breath Cardiac: No chest pain, No edema Abdomen: No pain, No nausea, No vomiting, No diarrhea Female : No dysuria, No urinary frequency, No hematuria, No incontinence Psychiatric: No depression symptoms, No anhedonism Objective Vital Signs Date Time Temp Pulse Resp B/P (MAP) Pulse Ox O2 Delivery O2 Flow Rate FiO2 03/28/18 08:30 98 Room Air 03/28/18 08:05 36.5 81 16 142/84 (103) 98 03/28/18 00:00 Room Air 03/27/18 22:57 36.8 79 18 133/85 (101) 98 Room Air 03/27/18 19:16 37.0 90 18 132/81 (98) 96 Room Air 03/27/18 18:00 Room Air 03/27/18 16:51 37.1 84 18 139/83 100 03/27/18 15:45 36.8 84 18 137/85 100 03/27/18 15:15 36.8 86 20 134/82 100 03/27/18 14:45 36.9 86 14 140/84 97 03/27/18 14:30 37.5 85 14 134/81 99 03/27/18 14:15 36.8 88 18 126/74 03/27/18 13:20 37.2 90 14 119/84 100 03/27/18 12:20 36.8 85 14 119/75 99 03/27/18 11:50 36.7 79 14 120/71 100 03/27/18 11:40 36.8 80 14 136/71 99 03/27/18 11:20 36.7 86 18 120/77 100 0.0 Physical Exam General Appearance: WD/WN, + mild distress Eyes: normal inspection, sclerae normal Neck: supple Respiratory/Chest: chest non-tender, lungs clear Cardiovascular: regular rate, rhythm, no murmur Abdomen: normal bowel sounds, non tender, soft Extremities: no pedal edema, no calf tenderness Neurologic/Psychiatric: alert, oriented x 3 Laboratory Results Last 24 Hours Test 03/28/18 05:26 Creatinine 0.57 mg/dl Est Creatinine Clear Calc Drug Dose 103.8 ml/min Estimated GFR () 111.2 Estimated GFR (Non- 95.9 Assessment and Plan Neutropenic fever, gram negative bacteremia but not sepsis, C diff, ID is concerned with degree of sinusitis and chronically draining right TM that this may be a source also to consider removal of A port when appropriate Pseudomonas Bacteremia, Patient has an abnormal CT of temporal bone on 03/06/18 describing an allergic fungal sinusitis involving the maxillary, frontal and ethmoid sinuses. An acute on chronic left sphenoid sinusitis, and and extensive right mastoid sinusitis. ID has recommended Cefepime and ENT eval plus consideration of removal of A port ,will send additional cultures to provide assurance of clearance of blood C diff colitis will start on oral vancomycin Started cholestyramine 4 g p.o. twice daily. CLL/pancytopenia--discontinue oral chemotherapy Imbruvica her pancytopenia is a combination of chemotherapy induced and her underlying disease process Was transfused 4 units packed RBCs and 1 unit irradiated/leuko-reduced platelets Received Neupogen 480 mcg subcu on 03/23, additional dose 03/25, 03/27 I [place] [facility] [place] and they recommended holding chemo and support with blood products I met with Dr arndt and discussed her care plan 03/26 Electrolyte abnormalities/ hypokalemia/hypomagnesemia-- NSS + KCl 20 mEq 100 mils per hour. dvt prevetion is contraindicated due to low platelets will consider surgical consult to consider removal of aport when appropriate
[2018-03-28 10:22] LABS: HEMATOCRIT 25.2 % (37-47); HEMOGLOBIN 8.6 g/dL (12.0-16.0); MEAN CORPUSCULAR HEMOGLOBIN 30.7 pg (25-34); MEAN CORPUSCULAR HGB CONC 34.1 g/dl (32-36); MEAN PLATELET VOLUME 11.7 fL (7.4-10.4); PLATELET COUNT 17 K/uL (130-400); RED CELL DISTRIBUTION WIDTH CV 14.9 % (11.5-14.5); RED CELL DISTRIBUTION WIDTH SD 48.9 fL (36.4-46.3); WHITE BLOOD COUNT 2.09 K/uL (4.8-10.8)
--- NOTE | 2018-03-28 10:49 | Hematology/Oncology Prog Note ---
Hematology/Onc Progress Note Date of Service Mar 28, 2018. Diagnoses CLL Pseudomonal bacteremia C diff positive stool Medications Medications Administered Medications (Trade) Dose Ordered Sig/Quita Route Start Time Stop Time Status Last Admin Dose Admin Sodium Chloride 1,000 ml @ 999 mls/hr Q1H1M ONCE IV 03/24/18 22:12 03/24/18 23:12 DC 03/24/18 22:12 999 MLS/HR Magnesium Sulfate (Magnesium Sulfate 1gm / D5W) 2 gm NOW STAT IV 03/24/18 23:53 03/24/18 23:54 DC 03/25/18 00:04 2 GM Potassium Chloride (Klor-Con M10) 10 meq NOW STAT PO 03/24/18 23:53 03/24/18 23:54 DC 03/25/18 00:05 10 MEQ Cefepime HCl 2000 mg/Dextrose 122 ml @ 200 mls/hr NOW STAT IV 03/24/18 23:57 03/25/18 00:33 DC 03/25/18 00:53 200 MLS/HR Cholecalciferol (Vitamin D Tab) 1,000 inter.unit DAILY PO 03/25/18 08:00 04/24/18 08:59 03/28/18 08:02 1,000 INTER.UNIT Cyanocobalamin (Vitamin B-12 Tab) 500 mcg DAILY PO 03/25/18 08:00 04/24/18 08:59 03/28/18 08:04 500 MCG Lorazepam (Ativan Tab) 0.5 mg HS PRN PO 03/25/18 01:45 04/24/18 01:44 03/27/18 21:42 0.5 MG Multivitamins (Multivitamin Tab) 1 tab DAILY PO 03/25/18 08:00 04/24/18 08:59 03/28/18 08:03 1 TAB Vancomycin HCl 1250 mg/Sodium Chloride 275 ml @ 125 mls/hr Q12H IV 03/25/18 16:00 03/26/18 12:07 DC 03/26/18 04:30 125 MLS/HR Piperacillin Sod/ Tazobactam Sod 3.375 gm/Dextrose 115 ml @ 28.75 mls/ hr Q8H IV 03/25/18 08:00 03/28/18 09:34 DC 03/28/18 01:48 28.75 MLS/HR Lactobacillus Acidophilus (Floranex Tab) 4 tab TIDM PO 03/25/18 08:00 04/24/18 07:59 03/28/18 08:03 4 TAB Cholestyramine Resin (Questran Powder Light) 4 gm BID@10,22 PO 03/25/18 10:00 04/24/18 09:59 03/27/18 20:45 4 GM Rifaximin (Xifaxan Tab) 200 mg TID PO 03/25/18 08:00 03/27/18 09:42 DC 03/27/18 07:41 200 MG Ondansetron HCl (Zofran Odt) 8 mg Q6H PRN PO 03/25/18 02:00 04/24/18 01:59 03/28/18 08:03 8 MG Potassium Chloride/Sodium Chloride 1,000 ml @ 100 mls/hr Q10H IV 03/25/18 03:30 04/24/18 03:29 03/28/18 07:10 100 MLS/HR Pantoprazole Sodium 40 mg/ Syringe 10 ml @ 5 mls/min DAILY@11 IV 03/25/18 11:00 04/24/18 10:59 03/27/18 10:31 5 MLS/MIN Filgrastim (Neupogen Sq) 480 mcg ONE ONCE SC 03/25/18 02:00 03/25/18 02:55 DC 03/25/18 03:57 480 MCG Vancomycin HCl (Vancomycin 1gm Ed/Asu Omnicell) 1 gm STK-MED ONCE .ROUTE 03/25/18 01:50 03/25/18 01:51 DC 03/25/18 01:52 1 GM Vancomycin HCl 1000 mg/Sodium Chloride 270 ml @ 125 mls/hr 0400 IV 03/25/18 04:00 03/25/18 06:10 DC 03/25/18 04:56 125 MLS/HR Piperacillin Sod/ Tazobactam Sod 4.5 gm/Dextrose 120 ml @ 200 mls/hr 0300 ONCE IV 03/25/18 03:00 03/25/18 03:35 DC 03/25/18 03:58 200 MLS/HR Fluconazole/ Sodium Chloride 200 mg/Prmx 100 ml @ 100 mls/hr DAILY@0700,0800 IV 03/25/18 07:00 03/27/18 09:42 DC 03/27/18 08:40 100 MLS/HR Vancomycin HCl (Vancomycin Oral Soln) 125 mg Q6 PO 03/26/18 12:00 04/05/18 11:59 03/28/18 05:48 125 MG Raspberry (Raspberry Syrup 5ml Cup) 5 ml Q6 PO 03/26/18 12:00 04/09/18 11:59 03/28/18 05:48 5 ML Filgrastim (Neupogen Sq) 480 mcg DAILY SQ 03/27/18 09:00 03/28/18 08:01 DC 03/27/18 10:36 480 MCG Subjective Ms. Andres is feeling better today. Her energy is up and she is stronger. She is off of the Ibrutinib and is not experiencing any worsening lymphadenopathy or fevers. Review of Systems: Constitutional: + weakness, + fatigue, No fever ENT: No unusual epistaxis Respiratory: No cough, No shortness of breath Cardiovascular: No chest pain Abdomen: No pain, No nausea, No GI bleeding Musculoskeletal: No joint pain, No muscle pain Female : No dysuria, No hematuria Heme: No abnormal bleeding/bruising Vital Signs Vital Signs Past 12 Hours Date Time Temp Pulse Resp B/P (MAP) Pulse Ox O2 Delivery O2 Flow Rate FiO2 03/28/18 08:30 98 Room Air 03/28/18 08:05 36.5 81 16 142/84 (103) 98 03/28/18 00:00 Room Air 03/27/18 22:57 36.8 79 18 133/85 (101) 98 Room Air Physical Exam Constitutional: Level of Distress: NAD, chronically ill Psychiatric: Mental Status: active & alert Orientation: oriented except where noted Lungs: Respiratory Effort: no dyspnea Auscuitation: breath sounds normal Cardiovascular: Heart Auscultation: RRR Abdomen: Inspection & Palpation: soft, no tenderness, guarding & rebound Extremities: no edema Laboratory Last 24 Hours Test 03/28/18 05:26 03/28/18 09:56 Creatinine 0.57 mg/dl Est Creatinine Clear Calc Drug Dose 103.8 ml/min Estimated GFR () 111.2 Estimated GFR (Non- 95.9 White Blood Count 2.09 K/uL Red Blood Count 2.80 M/uL Hemoglobin 8.6 g/dL Hematocrit 25.2 % Mean Corpuscular Volume 90.0 fL Mean Corpuscular Hemoglobin 30.7 pg Mean Corpuscular Hemoglobin Concent 34.1 g/dl Platelet Count 17 K/uL Mean Platelet Volume 11.7 fL RDW Standard Deviation 48.9 fL RDW Coefficient of Variation 14.9 % Assessment & Plan Ms. Andres appears to be responding to antibiotics. Her cytopenias are likely multifactorial, with components of the Ibrutinib, her bone marrow disease, and the sepsis. She was transfused yesterday and her CBC shows an appropriate response. I would hold off on further transfusion for now, with the following paramters: PRBCs for Hgb <7.5, Plts for bleeding or count <15K. I would continue with her antibiotic regimen as described by ID and I agree with removing her port, particularly as she is on oral therapy and so doesn't need it. Her sinusitis has been a chronic issue for many years and appears to correlate with her CLL, making me suspect the findings may be related to lymphoma. If she is still toxic and not improving after her other infectious issues resolve, we could consider ENT evaluation to rule out infection.
[2018-03-28] MEDS: CEFEPIME IV 1,000 MG in SYRINGE 0 ML IV SCH ×2 (10:56→17:48)
[2018-03-28] MEDS: PANTOprazole INJ 40 MG in SYRINGE 0 ML IV SCH (10:56)
[2018-03-28] MEDS: FILGRASTIM 480 MCG/1.6 ML VIAL SQ SCH (10:57)
[2018-03-28] MEDS: CHOLESTYRAMINE LIGHT 4 GM PKT PO SCH ×2 (10:57→22:07)
[2018-03-28 11:57] LABS: BASO % 0.5 %; BASO ABS # 0.01 K/uL (0-0.2); EOS % 0.5 %; EOS ABS # 0.01 K/uL (0-0.5); LYMPH % 81.3 %; MONO % 2.9 %; MONO ABS # 0.06 K/uL (0.11-0.59); NEUT ABS # 0.21 K/uL (1.4-6.5)
[2018-03-28 12:32] VITALS: BP 134/79; PULSE 81; TEMP 36.5; O2SAT 100
[2018-03-28 14:57] VITALS: BP 123/80; PULSE 73; TEMP 36.4; O2SAT 99
--- NOTE | 2018-03-28 17:22 | ENT CONSULTATION ---
DATE OF CONSULTATION: 03/28/2018 PERSON REQUESTING CONSULTATION: Keny Segura MD INDICATION: Rule out the ear or the sinuses as the cause of her pseudomonas septicemia. HISTORY OF PRESENT ILLNESS: This is a 67-year-old woman with CLL. She has had several recent admissions to [facility]. The last was just within the last week. The concern is that she had presented most recently on 03/25/2018 with a neutropenic fever and her cultures from her blood grew out Pseudomonas. She has been seeing Tanya Waddell [place] [facility] every week for the last 3 weeks for drainage from her right ear. She did not describe any intense pain in her right ear, but just a chronic history of drainage from the right ear. The patient says she uses a Neti pot at home for her chronic nasal and sinus condition, but she has not been performing this in the hospital. She has not been using any Afrin in the hospital. She used otic drops in the past for her right ear which helped her. She has not been using otic drops in the hospital. She is currently on piperacillin and cefepime for her pseudomonas bacteremia. I interviewed her in room 407. I also reviewed her chart. I also reviewed images and report from her CT scan of the temporal bone of 03/06/[address] of the sinuses from 03/27/2018. As far as review of systems, past medical history, those are all well documented in both Dr. Marie's note and her admission note from the ED. PHYSICAL EXAMINATION: Otoscopic exam of the ears showed that she had some clearish fluid in the right ear and a pinpoint perforation. There was no granulation tissue. There was no erythema. The left ear was within normal limits. I performed a flexible fiberoptic nasal pharyngoscopy. The patient had crusting more on the left side of the nose than the right. There were no fungal elements. There was no pus. There was no erythema. The changes in her 2 CT scans of the temporal bone and the sinuses mentioned previously appear to be chronic to me. I doubt there is an association between this and her bacteremia. Also, she is already on antibiotic coverage and seems to be getting better. She does not appear to be toxic to me. I do not feel that surgical intervention at this time with a platelet count of 16 is a good idea. Also, I do not think it would be particularly helpful. What will be helpful was to put her on Ciprodex drops 4 drops to the right ear twice a day. Additionally, she should be allowed to bring in her Neti pot from home and a bottle of 0.9% normal saline should be made available to her for b.i.d., nasal saline irrigations. Finally, Afrin spray (oxymetazoline 0.05%) should be used 2 puffs to each nostril every 12 hours. I have put a call in to Dr. Segura to discuss my recommendations. [facility]
[2018-03-28 19:20] VITALS: BP 135/82; PULSE 93; TEMP 36.7; O2SAT 95
[2018-03-28 22:53] VITALS: BP 143/82; PULSE 85; TEMP 36.7; O2SAT 99
[2018-03-29] VITALS (7 sets, daily range): BP systolic 134–147; BP diastolic 77–85; PULSE 72–91; TEMP 36.5–36.8; O2SAT 97–99
[2018-03-29] MEDS: NSS + 20MEQ KCL 1000ML 1,000 ML IV SCH (02:02)
[2018-03-29] MEDS: CEFEPIME IV 1,000 MG in SYRINGE 0 ML IV SCH ×3 (02:02→17:32)
[2018-03-29] MEDS: RASPBERRY SYRUP 5 ML UDP PO SCH ×4 (05:16→23:40)
[2018-03-29] MEDS: VANCOMYCIN HCL 125 MG/2.5ML SOLN PO SCH ×4 (05:16→23:40)
[2018-03-29 07:03] LABS: CALCIUM 7.6 mg/dl (8.5-10.1); CREATININE 0.55 mg/dl (0.60-1.20); POTASSIUM 4.4 mmol/L (3.5-5.1)
[2018-03-29 07:28] LABS: HEMATOCRIT 24.7 % (37-47); HEMOGLOBIN 8.3 g/dL (12.0-16.0); MEAN CELL VOLUME 90.8 fL (80-100); MEAN CORPUSCULAR HEMOGLOBIN 30.5 pg (25-34); MEAN CORPUSCULAR HGB CONC 33.6 g/dl (32-36); MEAN PLATELET VOLUME 11.5 fL (7.4-10.4); PLATELET COUNT 14 K/uL (130-400); RED CELL DISTRIBUTION WIDTH CV 14.9 % (11.5-14.5); RED CELL DISTRIBUTION WIDTH SD 48.7 fL (36.4-46.3); WHITE BLOOD COUNT 2.07 K/uL (4.8-10.8)
[2018-03-29] MEDS: MULTIVITAMIN TAB PO SCH (08:08)
[2018-03-29] MEDS: LACTOBACILLUS ACIDOPHILUS (FLORANEX) TAB PO SCH ×3 (08:08→17:31)
[2018-03-29] MEDS: CHOLECALCIFEROL 1000 INTER.UNIT TAB PO SCH (08:09)
[2018-03-29] MEDS: CYANOCOBALAMIN 500 MCG TAB (VIT B-12) PO SCH (08:09)
[2018-03-29 08:37] LABS: EOS % 0.5 %; EOS ABS # 0.01 K/uL (0-0.5); IG# 0.06 K/uL (0.00-0.02); LYMPH % 83.6 %; LYMPH ABS # 1.73 K/uL (1.2-3.4); MONO % 1.4 %; MONO ABS # 0.03 K/uL (0.11-0.59); NEUT % 11.6 %; NEUT ABS # 0.24 K/uL (1.4-6.5)
[2018-03-29] MEDS: PANTOprazole INJ 40 MG in SYRINGE 0 ML IV SCH (10:06)
[2018-03-29] MEDS: CHOLESTYRAMINE LIGHT 4 GM PKT PO SCH (10:07)
--- NOTE | 2018-03-29 10:24 | HEME/ONC PROGRESS NOTE ---
DATE: 03/27/2018 DIAGNOSES: 1. Pancytopenia, attributable to ibrutinib. 2. Clostridium difficile colitis. 3. Pseudomonal bacteremia. SUBJECTIVE: Zaira was seen and examined at bedside this morning. Her spirits remain high, tolerating diet and ambulating ad louis. Peripheral blood counts are slow to recover despite Neupogen, she still remains profoundly neutropenic. Her platelets are also refractory. She did receive 2 units packed RBCs and seems to be holding her hemoglobin satisfactorily. She offers no specific complaints. PHYSICAL EXAMINATION: GENERAL: She is in no acute distress. VITAL SIGNS: Temperature is 36.5, pulse 72, respiratory rate 16, blood pressure 140/82. SKIN: Without rash or lesion. HEENT: Oral mucosa without erythema or ulceration. HEART: Regular rate and rhythm. LUNGS: Clear to auscultation bilaterally. ABDOMEN: Soft, nontender, nondistended. EXTREMITIES: No clubbing, cyanosis or edema. NEUROLOGIC: Grossly intact. LABORATORY DATA: WBC count 2070, hemoglobin 8.3, platelet count 14,000, absolute neutrophil count 240. Chemistries: Sodium 145, potassium 4.4, chloride 116, carbon dioxide 21, creatinine 0.55, BUN 5. IMPRESSION: 1. Pancytopenia, attributable to ibrutinib. 2. Clostridium difficile colitis. 3. Pseudomonal bacteremia. 4. Electrolyte dysfunction. PLAN: Zaira continues to do reasonably well despite her sluggish peripheral blood counts. She continues on broad-spectrum antimicrobials for a pseudomonal bacteremia. Point was made by the hospitalist service that was prudent. Her port should be removed; however, her platelet count is inadequate to proceed with a minor procedure at this time. There is certainly no hurry to have the port removed. She could continue outpatient antimicrobials and have the port removed when her platelet count is safely above 50,000. Would continue Neupogen 480 mcg subQ for now. She does not require platelet transfusion presently, but continued to follow peripheral counts daily. Thank you again for assisting us in the care of this very pleasant patient.
--- NOTE | 2018-03-29 14:24 | Progress Note ---
Subjective Date of Service: Mar 29, 2018. Subjective Pt evaluation today including: conversation w/ patient, conversation w/ family , physical exam, chart review, lab review, review of studies, conversation w/ senior micro[employer] consultant, review of inpatient medication list Sitting on chair, pleasant, conversational, generally feeling okay, Problem List Medical Problems: (1) Hypokalemia Status: Acute (2) Hypomagnesemia Status: Acute (3) Neutropenic fever Status: Acute (4) Pancytopenia Status: Acute Review of Systems Constitutional: + weakness, + fatigue, No fever, No chills, No sweats, No weight loss, No problem reported Eyes: No worsening of vision, No eye pain, No redness, No discharge, No diplopia ENT: No hearing loss, No unusual epistaxis, No nasal symptoms, No sore throat, No tinnitus, No dental problems, No trouble swallowing Respiratory: No cough, No sputum, No wheezing, No shortness of breath, No dyspnea on exertion, No dyspnea at rest, No hemoptysis Cardiac: No chest pain, No orthopnea, No PND, No edema, No claudication, No palpitations Abdomen: No pain, No nausea, No vomiting, No diarrhea, No constipation Musculoskeletal: No joint pain, No muscle pain, No swelling, No calf pain Female : No dysuria, No urinary frequency, No hematuria, No incontinence, No abnormal vaginal bleeding, No vaginal discharge Neurologic: No memory loss, No paralysis, No weakness, No numbness/tingling, No vertigo, No balance problems Psychiatric: No depression symptoms, No anhedonism, No anxiety, No insomnia, No substance abuse Heme: No abnormal bleeding/bruising, No clotting problems, No swollen lymph nodes, No night sweats Endo: No fatigue, No excessive thirst, No excessive urination Skin: No rash, No itch, No new/changing skin lesions, No color change, No bleeding Objective Vital Signs Date Time Temp Pulse Resp B/P (MAP) Pulse Ox O2 Delivery O2 Flow Rate FiO2 03/29/18 11:20 36.5 72 16 138/82 (100) 98 03/29/18 07:30 98 Room Air 03/29/18 07:27 36.5 72 16 140/82 (101) 98 03/29/18 04:26 36.6 77 18 134/80 (98) 98 Room Air 03/28/18 23:59 Room Air 03/28/18 22:53 36.7 85 18 143/82 (102) 99 Room Air 03/28/18 19:20 36.7 93 16 135/82 (99) 95 Room Air 03/28/18 16:10 Room Air 03/28/18 14:57 36.4 73 16 123/80 (94) 99 Physical Exam General Appearance: WD/WN, no apparent distress, + pertinent finding ( Chronically ill looking,) Eyes: normal inspection, PERRL, EOMI, sclerae normal ENT: normal ENT inspection, hearing grossly normal, pharynx normal Neck: supple, no adenopathy, thyroid normal, no JVD, no carotid bruits, trachea midline Respiratory/Chest: chest non-tender, normal breath sounds, no respiratory distress, no accessory muscle use, + decreased breath sounds, + pertinent finding (Right chest wall has a port) Cardiovascular: regular rate, rhythm, no edema, no gallop, no JVD, no murmur Abdomen: normal bowel sounds, non tender, soft, no organomegaly, no pulsatile mass Extremities: normal range of motion, non-tender, normal inspection, no pedal edema, no calf tenderness, normal capillary refill, pelvis stable 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, no motor/sensory deficits, alert, normal mood/affect, oriented x 3 Skin: normal color, warm/dry, no rash Lymphatic: no adenopathy Laboratory Results Last 24 Hours Test 03/29/18 05:58 White Blood Count 2.07 K/uL Red Blood Count 2.72 M/uL Hemoglobin 8.3 g/dL Hematocrit 24.7 % Mean Corpuscular Volume 90.8 fL Mean Corpuscular Hemoglobin 30.5 pg Mean Corpuscular Hemoglobin Concent 33.6 g/dl Platelet Count 14 K/uL Mean Platelet Volume 11.5 fL Neutrophils (%) (Auto) 11.6 % Lymphocytes (%) (Auto) 83.6 % Monocytes (%) (Auto) 1.4 % Eosinophils (%) (Auto) 0.5 % Basophils (%) (Auto) 0.0 % Neutrophils # (Auto) 0.24 K/uL Lymphocytes # (Auto) 1.73 K/uL Monocytes # (Auto) 0.03 K/uL Eosinophils # (Auto) 0.01 K/uL Basophils # (Auto) 0.00 K/uL RDW Standard Deviation 48.7 fL RDW Coefficient of Variation 14.9 % Immature Granulocyte % (Auto) 2.9 % Immature Granulocyte # (Auto) 0.06 K/uL Sodium Level 145 mmol/L Potassium Level 4.4 mmol/L Chloride Level 116 mmol/L Carbon Dioxide Level 21 mmol/L Anion Gap 8.0 mmol/L Blood Urea Nitrogen 5 mg/dl Creatinine 0.55 mg/dl Est Creatinine Clear Calc Drug Dose 108.4 ml/min Estimated GFR () 112.5 Estimated GFR (Non- 97.1 BUN/Creatinine Ratio 9.0 Random Glucose 83 mg/dl Calcium Level 7.6 mg/dl Assessment and Plan 67-year-old white female admitted on March 25 2018 because of neutropenic fever, gram negative bacteremia but not sepsis, Pseudomonas Bacteremia, acute on chronic left sphenoid sinusitis, and and extensive right mastoid sinusitis. abnormal CT of temporal bone on 03/06/18 describing an allergic fungal sinusitis involving the maxillary, frontal and ethmoid sinuses. ID has recommended Cefepime and ENT eval plus consideration of removal of A port ,will send additional cultures to provide assurance of clearance of blood ENT saw patient, recommend Ciprodex right ear drop, Afrin nasal spray, normal saline sinus irrigation, do not feel that bacteremia is from sinus infection, and do not feel have pseudomonal all fungal infection in the sinus, does not need any procedure for now Pseudomonal bacteremia, possible source of infection is A port , this will be removed, will request surgical consultation, patient agreed with this, however possible need better of platelet count and and then do the procedure, however will have surgical consult for now C diff colitis, stable, continue oral vancomycin, discontinue cholestyramine CLL/pancytopenia--discontinue oral chemotherapy Imbruvica her pancytopenia is a combination of chemotherapy induced and her underlying disease process Was transfused 4 units packed RBCs and 1 unit irradiated/leuko-reduced platelets Received Neupogen 480 mcg subcu on 03/23, additional dose 03/25, 03/27 Previous hospitalist did call [facility] oncology and they recommended holding chemo and support with blood products Discussed with Electrolyte abnormalities/ hypokalemia/hypomagnesemia-- NSS + KCl 20 mEq 100 mils per hour. dvt prevetion is contraindicated due to low platelets Continued [facility] stay due to: multiple IV medications needed Discharge planning: home
--- NOTE | 2018-03-29 20:35 | SURGICAL CONSULTATION ---
DATE OF CONSULTATION: 03/29/2018 I had been asked by Dr. Haro to see this 67-year-old female who has a history of CLL. She had an A-port placed 10 years ago, which has been used for IV fluids and transfusions mostly. She was admitted earlier this month with weakness, fatigue, dizziness. She had a hemoglobin at that point of 7.5. She has pancytopenia. She developed a temperature of 101.7, which prompted her visit to the Emergency Room and she was admitted and placed in isolation. She has not had any complications with the A-port. There has been no skin erythema or drainage. She has had positive blood cultures for pseudomonas. She also had a recent stool that was positive for C. diff. PAST MEDICAL HISTORY: For anemia, CLL, hypokalemia, neutropenia, thrombocytopenia, and anemia. PAST SURGICAL HISTORY: Includes repair of a left ear drum. They removed her adenoids at the same time. She had tonsillectomy prior to that. She has had an appendectomy, placement of A-port, cholecystectomy, left ovary removal, hysterectomy, gastric bypass, and excessive skin excision after the bypass. MEDICATIONS: At the present time, include Cipro, cefepime, vancomycin, heparin, pantoprazole, cyanocobalamin, vitamin D, Zofran, Ativan. ALLERGIES: AZITHROMYCIN. PHYSICAL EXAMINATION: GENERAL: Reveals well-developed, well-nourished female who is resting comfortably and appears in no acute distress. VITAL SIGNS: Blood pressure 147/85, heart rate 91, respirations 18, temperature 36.8, pulse oximetry is 97% on room air. HEENT: Reveals sclerae to be anicteric. Mucous membranes are moist. NECK: Supple, with no adenopathy. BACK: Has no spinal or CVA tenderness. CHEST WALL: Has the port in place in the right infraclavicular area. There is no skin erythema. It is presently accessed. HEART: Regular. ABDOMEN: Soft, nondistended and nontender. LABORATORY DATA: Most recently, WBC 2.07; H and H 8.3 and 24.7; platelet count 14,000. Sodium 145, potassium 4.4, chloride 111, CO2 21, BUN 5, creatinine 0.55, glucose 83. INR is 1. ASSESSMENT AND PLAN: This patient needs her A-port removed. She will need to be off her heparin. She will also need platelets available for transfusion at the time of the procedure. I have explained to her the procedure and the possible complications and answered her questions. She and had signed the consent form.
[2018-03-29] MEDS: SODIUM CHLORIDE 0.9% IRRIG 1,000 ML PLCT IR SCH (21:05)
[2018-03-29] MEDS: OXYMETAZOLINE HCL 0.05% NA SPR 15 ML BTL SCH (21:06)
[2018-03-29] MEDS: CIPRO 0.3%/DEXAMETHASONE 0.1% OTIC SUSP 7.5ML OT SCH (21:37)
[2018-03-30] VITALS (10 sets, daily range): BP systolic 147–168; BP diastolic 68–92; PULSE 72–85; TEMP 36.4–36.9; O2SAT 96–100
[2018-03-30] MEDS: CEFEPIME IV 1,000 MG in SYRINGE 0 ML IV SCH ×3 (01:48→17:58)
[2018-03-30] MEDS: VANCOMYCIN HCL 125 MG/2.5ML SOLN PO SCH ×3 (05:33→17:29)
[2018-03-30] MEDS: RASPBERRY SYRUP 5 ML UDP PO SCH ×3 (05:33→17:29)
[2018-03-30 06:44] LABS: HEMATOCRIT 24.4 % (37-47); HEMOGLOBIN 8.2 g/dL (12.0-16.0); MEAN CELL VOLUME 90.4 fL (80-100); MEAN CORPUSCULAR HEMOGLOBIN 30.4 pg (25-34); MEAN CORPUSCULAR HGB CONC 33.6 g/dl (32-36); PLATELET COUNT 14 K/uL (130-400); RED CELL DISTRIBUTION WIDTH CV 14.7 % (11.5-14.5); RED CELL DISTRIBUTION WIDTH SD 47.8 fL (36.4-46.3); WHITE BLOOD COUNT 2.12 K/uL (4.8-10.8)
[2018-03-30 06:55] LABS: PHOSPHORUS 2.4 mg/dl (2.5-4.9)
[2018-03-30 07:49] LABS: EOS % 0.5 %; EOS ABS # 0.01 K/uL (0-0.5); IG# 0.06 K/uL (0.00-0.02); LYMPH % 82.5 %; LYMPH ABS # 1.75 K/uL (1.2-3.4); MONO % 0.9 %; MONO ABS # 0.02 K/uL (0.11-0.59); NEUT % 13.3 %; NEUT ABS # 0.28 K/uL (1.4-6.5)
[2018-03-30] MEDS: LACTOBACILLUS ACIDOPHILUS (FLORANEX) TAB PO SCH ×3 (08:00→17:58)
[2018-03-30] MEDS: SODIUM CHLORIDE 0.9% IRRIG 1,000 ML PLCT IR SCH ×2 (08:00→20:43)
[2018-03-30] MEDS ORDERED: MAGNESIUM SULFATE 1GM / D5W 100 ML IV ONE (08:15)
[2018-03-30] MEDS ORDERED: MIDAZOLAM HCL 1 MG/ML 2ML VIAL ONE (08:31)
[2018-03-30] MEDS ORDERED: PROPOFOL IV EMULSION 10 MG/ML 20 ML VIAL ONE (08:31)
[2018-03-30] MEDS ORDERED: FENTANYL CITRATE INJ 50 MCG/1 ML 2 ML VIAL ONE (08:31)
[2018-03-30] MEDS ORDERED: LIDOCAINE HCL 1% 20 ML VIAL ONE (08:40)
[2018-03-30] MEDS ORDERED: BUPIVACAINE/EPINEPHRINE 0.5% MPF 1:200,000 30 ML VIAL ONE (08:41)
--- NOTE | 2018-03-30 08:59 | HEME/ONC PROGRESS NOTE ---
DATE: 03/30/2018 DIAGNOSES: 1. Pancytopenia, attributable to ibrutinib. 2. Clostridium difficile colitis. 3. Pseudomonal bacteremia. SUBJECTIVE: Zaira was seen and examined at bedside. She feels well without specific complaint. Continues to have liquidy diarrheal stools. Continues on vancomycin orally. Zaira also continues broad-spectrum antibiotics for bacteremia. MediPort will be removed today and patient will receive platelet transfusion prior to OR. She offers no complaints of pain or discomfort. Her nursing reported no overnight difficulties. PHYSICAL EXAMINATION: GENERAL: She is in no acute distress at this time. VITAL SIGNS: Temperature 36.7, pulse 81, respiratory rate 16, blood pressure 150/81. SKIN: Without rash or lesion. HEENT: Oral mucosa without erythema or ulceration. NECK: Supple. HEART: Regular rate and rhythm. LUNGS: Clear. ABDOMEN: Soft, nontender, nondistended. EXTREMITIES: No clubbing, cyanosis, or edema. NEUROLOGIC: Grossly intact. LABORATORY DATA: WBC count 2120, hemoglobin 8.2, platelet count 14,000, phosphorus 2.4, magnesium 1.6. IMPRESSION: 1. Pancytopenia attributable to ibrutinib. 2. Electrolyte dysfunction. 3. Clostridium difficile colitis. 4. Pseudomonal bacteremia. PLAN: Zaira will go to the OR later on today to have port removed. Single donor platelets should be transfused prior to procedure. Continue Neupogen 480 mcg subQ daily. Continue antimicrobials as prescribed. Once she has her port removed, if her diarrhea begins to slow, plan towards discharging her and we will consider options regarding ibrutinib moving forward. I will have my staff obtain her bone marrow report for review. I wished her well in her procedure and will continue to follow her daily. Thank you again for assisting us in the care of this very pleasant patient.
--- NOTE | 2018-03-30 09:51 | History & Physical Bridge Note ---
H&P Re-Evaluation Bridge Note: I have examined the patient, reviewed the History & Physical and in the interval since the performance of the History & Physical I have noted the following changes of clinical significance: No changes noted
--- NOTE | 2018-03-30 10:45 | [facility] Post Operative Brief Note ---
Immediate Operative Summary Operative Date Mar 30, 2018. Pre-Operative Diagnosis History of Bacteremia Post-Operative Diagnosis History of Bacteremia Procedure(s) Performed Removal of Infusaport Surgeon Dr. Jimmie Gomez Supervisor [employer]ing Room Surgeon(s) None Estimated Blood Loss 3ml Findings Consistent with Post-Op Diagnosis Specimens Culture 1. Explanted infusaport 2. Infusaport capsule Specimen A. Explanted infusaport Drains None Anesthesia Type MAC Complication(s) none
--- NOTE | 2018-03-30 11:08 | Anesthesiology Progress Note ---
Anesthesia Post Op Note Date & Time Mar 30, 2018 at 11:08 Vital Signs Pain Intensity: 0 Vital Signs Past 12 Hours Date Time Temp Pulse Resp B/P (MAP) Pulse Ox O2 Delivery O2 Flow Rate FiO2 03/30/18 10:59 74 16 03/30/18 10:59 76 16 97 03/30/18 10:56 147/76 03/30/18 10:54 71 18 97 03/30/18 10:54 72 18 03/30/18 10:50 151/66 03/30/18 10:49 36.6 72 18 151/66 95 Room Air 03/30/18 09:45 36.8 72 20 168/92 97 03/30/18 09:32 36.8 76 16 158/86 97 03/30/18 09:18 36.7 81 20 157/71 98 03/30/18 09:00 36.9 83 20 154/68 97 03/30/18 08:00 96 Room Air 03/30/18 07:36 36.7 81 16 150/81 (104) 96 03/30/18 03:20 36.4 85 18 154/80 (104) 98 Room Air 03/29/18 23:40 Room Air Notes Mental Status: alert / awake / arousable, participated in evaluation Pt Amnestic to Procedure: Yes Nausea / Vomiting: adequately controlled Pain: adequately controlled Airway Patency, RR, SpO2: stable & adequate BP & HR: stable & adequate Hydration State: stable & adequate Anesthetic Complications: no major complications apparent
[2018-03-30] MEDS ORDERED: ATROPINE SULFATE 0.1 MG/ML 5ML SYR IV PRN (11:15)
[2018-03-30] MEDS ORDERED: EpHEDrine SULFATE INJ 50 MG/ML AMP IV PRN (11:15)
[2018-03-30] MEDS: PANTOprazole INJ 40 MG in SYRINGE 0 ML IV SCH (11:38)
[2018-03-30] MEDS: CHOLECALCIFEROL 1000 INTER.UNIT TAB PO SCH (11:38)
[2018-03-30] MEDS: OXYMETAZOLINE HCL 0.05% NA SPR 15 ML BTL SCH ×2 (11:39→20:42)
[2018-03-30] MEDS: CYANOCOBALAMIN 500 MCG TAB (VIT B-12) PO SCH (11:41)
[2018-03-30] MEDS: CIPRO 0.3%/DEXAMETHASONE 0.1% OTIC SUSP 7.5ML OT SCH ×2 (11:41→20:43)
[2018-03-30] MEDS: MULTIVITAMIN TAB PO SCH (11:41)
--- NOTE | 2018-03-30 11:46 | OPERATIVE REPORT ---
DATE OF OPERATION: 03/30/2018 PREOPERATIVE DIAGNOSIS: History of bacteremia. POSTOPERATIVE DIAGNOSIS: History of bacteremia. PROCEDURE: Removal of A-port, central venous access catheter and port. SURGEON: Jimmie Gomez MD FINDINGS: The port and catheter were removed with ease. There was no fluid collection within the port sheath. The port and catheter were sent as a unit for culture and I removed the vast majority of the fibrinous sheath around the port sent that for culture. OPERATIVE TECHNIQUE: The patient was given intravenous sedation and the area was prepped and draped in the usual sterile fashion. Skin and subcutaneous tissue beneath the scar from the insertion were anesthetized with 1% Xylocaine without epinephrine. Skin incision was made and was carried down through the subcutaneous tissue. The catheter just beyond the plastic connector was identified. The sheath surrounding the catheter was isolated and surrounded with a 2-0 Vicryl tie. Further dissection was then carried of the port itself. I elevated the skin and opened the sheath on the anterior portion of the port, carried that dissection laterally. There were no sutures encountered. I was then able to widen the opening in the sheath enough to remove the port. The fibrinous sheath had grown around the connector. I then opened the sheath distal to the connector and removed the catheter. It slid out very easily. The 2-0 Vicryl surrounding the sheath was then secured. That allowed me to elevate the catheter and the sheath and separate any further attachments around the connector and remove the entire unit. It was sent for pathology. The sheath was then elevated and removed from the subcutaneous tissue using cautery and sent for pathology. The area was inspected for bleeding. Any oozing was controlled easily with cautery. The deep subcutaneous tissue was closed with running 2-0 Vicryl. The superficial subcutaneous tissue was closed with running 3-0 Vicryl and skin was closed with 4-0 Monocryl in a running subcuticular fashion. The skin was cleansed, dried and a dressing was placed. Estimated blood loss was 3 mL. Sponge, needle and instrument counts were correct x2 prior to closure. The patient tolerated the surgical procedure without complication and was transferred to recovery. I attest to the content of the Intraoperative Record and any orders documented therein. Any exception s are noted below.
--- NOTE | 2018-03-30 13:00 | Progress Note ---
Subjective Date of Service: Mar 30, 2018. Subjective Pt evaluation today including: conversation w/ patient, conversation w/ family , physical exam, chart review, lab review, review of studies, conversation w/ application development consultant, review of inpatient medication list med port removed ths am, no c/o Problem List Medical Problems: (1) Hypokalemia Status: Acute (2) Hypomagnesemia Status: Acute (3) Neutropenic fever Status: Acute (4) Pancytopenia Status: Acute Review of Systems Constitutional: + weakness, + fatigue, No fever, No chills, No sweats, No weight loss, No problem reported Eyes: No worsening of vision, No eye pain, No redness, No discharge, No diplopia ENT: No hearing loss, No unusual epistaxis, No nasal symptoms, No sore throat, No tinnitus, No dental problems, No trouble swallowing Respiratory: No cough, No sputum, No wheezing, No shortness of breath, No dyspnea on exertion, No dyspnea at rest, No hemoptysis Cardiac: No chest pain, No orthopnea, No PND, No edema, No claudication, No palpitations Abdomen: No pain, No nausea, No vomiting, No diarrhea, No constipation Musculoskeletal: No joint pain, No muscle pain, No swelling, No calf pain Female : No dysuria, No urinary frequency, No hematuria, No incontinence, No abnormal vaginal bleeding, No vaginal discharge Neurologic: No memory loss, No paralysis, No weakness, No numbness/tingling, No vertigo, No balance problems Psychiatric: No depression symptoms, No anhedonism, No anxiety, No insomnia, No substance abuse Heme: No abnormal bleeding/bruising, No clotting problems, No swollen lymph nodes, No night sweats Endo: No fatigue, No excessive thirst, No excessive urination Skin: No rash, No itch, No new/changing skin lesions, No color change, No bleeding Objective Vital Signs Date Time Temp Pulse Resp B/P (MAP) Pulse Ox O2 Delivery O2 Flow Rate FiO2 03/30/18 11:29 Room Air 03/30/18 11:27 36.5 77 16 156/78 (104) 100 Room Air 03/30/18 11:16 36.2 95 Room Air 03/30/18 11:12 73 14 03/30/18 11:12 72 14 97 03/30/18 11:11 155/72 03/30/18 11:07 71 14 98 03/30/18 11:07 71 14 03/30/18 11:06 155/76 03/30/18 11:05 71 14 96 03/30/18 11:05 70 14 03/30/18 11:01 145/75 03/30/18 11:00 70 16 97 03/30/18 11:00 71 16 03/30/18 10:59 74 16 03/30/18 10:59 76 16 97 03/30/18 10:56 147/76 03/30/18 10:54 71 18 97 03/30/18 10:54 72 18 03/30/18 10:50 151/66 03/30/18 10:49 36.6 72 18 151/66 95 Room Air 03/30/18 09:45 36.8 72 20 168/92 97 03/30/18 09:32 36.8 76 16 158/86 97 03/30/18 09:18 36.7 81 20 157/71 98 03/30/18 09:00 36.9 83 20 154/68 97 03/30/18 08:00 96 Room Air 03/30/18 07:36 36.7 81 16 150/81 (104) 96 03/30/18 03:20 36.4 85 18 154/80 (104) 98 Room Air 03/29/18 23:40 Room Air 03/29/18 22:37 36.7 86 18 139/77 (97) 97 Room Air 03/29/18 19:46 36.7 90 18 146/80 (102) 99 Room Air 03/29/18 16:00 Room Air 03/29/18 15:41 36.8 91 18 147/85 (105) 97 Physical Exam General Appearance: WD/WN, no apparent distress, + pertinent finding (thin, mild pale) Eyes: normal inspection, PERRL, EOMI, sclerae normal ENT: normal ENT inspection, hearing grossly normal, pharynx normal Neck: supple, no adenopathy, thyroid normal, no JVD, no carotid bruits, trachea midline Respiratory/Chest: chest non-tender, normal breath sounds, no respiratory distress, no accessory muscle use, + decreased breath sounds Cardiovascular: regular rate, rhythm, no edema, no gallop, no JVD, no murmur Abdomen: normal bowel sounds, non tender, soft, no organomegaly, no pulsatile mass Extremities: normal range of motion, non-tender, normal inspection, no pedal edema, no calf tenderness, normal capillary refill, pelvis stable, + swelling ( trace edema) 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, no motor/sensory deficits, alert, normal mood/affect, oriented x 3 Skin: normal color, warm/dry, no rash Lymphatic: no adenopathy Laboratory Results Last 24 Hours Test 03/30/18 05:59 White Blood Count 2.12 K/uL Red Blood Count 2.70 M/uL Hemoglobin 8.2 g/dL Hematocrit 24.4 % Mean Corpuscular Volume 90.4 fL Mean Corpuscular Hemoglobin 30.4 pg Mean Corpuscular Hemoglobin Concent 33.6 g/dl Platelet Count 14 K/uL Neutrophils (%) (Auto) 13.3 % Lymphocytes (%) (Auto) 82.5 % Monocytes (%) (Auto) 0.9 % Eosinophils (%) (Auto) 0.5 % Basophils (%) (Auto) 0.0 % Neutrophils # (Auto) 0.28 K/uL Lymphocytes # (Auto) 1.75 K/uL Monocytes # (Auto) 0.02 K/uL Eosinophils # (Auto) 0.01 K/uL Basophils # (Auto) 0.00 K/uL RDW Standard Deviation 47.8 fL RDW Coefficient of Variation 14.7 % Immature Granulocyte % (Auto) 2.8 % Immature Granulocyte # (Auto) 0.06 K/uL Toxic Granulation 2+ Dohle Bodies 1+ Phosphorus Level 2.4 mg/dl Magnesium Level 1.6 mg/dl Assessment and Plan 67-year-old white female admitted on March 25 2018 because of neutropenic fever, gram negative bacteremia but not sepsis, Pseudomonas Bacteremia, repeated blood culture negative for 2 days acute on chronic left sphenoid sinusitis, and extensive right mastoid sinusitis. abnormal CT of temporal bone on 03/06/18 describing an allergic fungal sinusitis involving the maxillary, frontal and ethmoid sinuses. ID has recommended Cefepime and ENT eval plus consideration of removal of A port , additional cultures to provide assurance of clearance of blood , all was done ENT saw patient, recommend Ciprodex right ear drop, Afrin nasal spray, normal saline sinus irrigation, do not feel that bacteremia is from sinus infection, and do not feel have pseudomonal all fungal infection in the sinus, does not need any procedure for now repeated blood culture negative Pseudomonal bacteremia, possible source of infection is A port , it was removed today, will talk to Dr. Marie about the length of Cefpime C diff colitis, stable, continue oral vancomycin, it was started 03/26/2018, need total 10-14 dAYS discontinue cholestyramine, CLL/pancytopenia--discontinue oral chemotherapy Imbruvica pancytopenia is a combination of chemotherapy induced and her underlying disease process Was transfused 4 units packed RBCs and 2 unit irradiated/leuko-reduced platelets Received Neupogen 480 mcg subcu on 03/23, additional dose 03/25, 03/27 Previous hospitalist did call [facility] oncology and they recommended holding chemo and support with blood products Discussed with Electrolyte abnormalities/ hypokalemia/hypomagnesemia F/u, and monitoring, , DC IVF dvt prevention is contraindicated due to low platelets increased activity, possible Dc in 1-2 days Continued [facility] stay due to: multiple IV medications needed Discharge planning: home
--- NOTE | 2018-03-30 17:42 | Infectious Disease Progress Nt ---
Progress Note Date of Service Mar 30, 2018. Subjective Pt evaluation today including: conversation w/ patient, physical exam, chart review, lab review, review of studies, conversation w/ oim consultant, review of inpatient medication list Patient now status post a port removal. Remains afebrile, follow-up cultures have been negative. Catheter tip cultures pending. All Other Systems: Reviewed and Negative Medications Current Inpatient Medications Medications (Trade) Dose Ordered Sig/Quita Route Start Time Stop Time Status Last Admin Dose Admin Acetaminophen (Tylenol Tab) 650 mg Q4H PRN PO 03/25/18 01:45 04/24/18 01:44 Cholecalciferol (Vitamin D Tab) 1,000 inter.unit DAILY PO 03/25/18 08:00 04/24/18 08:59 03/30/18 11:38 1,000 INTER.UNIT Cyanocobalamin (Vitamin B-12 Tab) 500 mcg DAILY PO 03/25/18 08:00 04/24/18 08:59 03/30/18 11:41 500 MCG Lorazepam (Ativan Tab) 0.5 mg HS PRN PO 03/25/18 01:45 04/24/18 01:44 03/27/18 21:42 0.5 MG Multivitamins (Multivitamin Tab) 1 tab DAILY PO 03/25/18 08:00 04/24/18 08:59 03/30/18 11:41 1 TAB Miscellaneous Information (Order Awaiting Action) 1 ea QS N/A 03/25/18 08:00 04/24/18 07:59 Lactobacillus Acidophilus (Floranex Tab) 4 tab TIDM PO 03/25/18 08:00 04/24/18 07:59 03/30/18 11:38 4 TAB Ondansetron HCl (Zofran Odt) 8 mg Q6H PRN PO 03/25/18 02:00 04/24/18 01:59 03/28/18 08:03 8 MG Miscellaneous (Iv Fluids Completed) 1 ea PRN PRN N/A 03/25/18 06:15 03/25/19 06:14 Heparin Sodium (Porcine) (Heparin 100 Unit/ml 5ml Flush) 5 ml PRN PRN IV 03/26/18 00:45 04/25/18 00:44 03/30/18 06:00 5 ML Vancomycin HCl (Vancomycin Oral Soln) 125 mg Q6 PO 03/26/18 12:00 04/05/18 11:59 03/30/18 11:38 125 MG Raspberry (Raspberry Syrup 5ml Cup) 5 ml Q6 PO 03/26/18 12:00 04/09/18 11:59 03/30/18 11:38 5 ML Cefepime HCl 1000 mg/Syringe 11 ml @ 5.5 mls/min Q8H IV 03/28/18 10:00 04/11/18 09:59 03/30/18 11:38 5.5 MLS/MIN Ciprofloxacin/ Dexamethasone (Ciprodex Otic Susp) 4 drops BID OT 03/29/18 20:00 04/05/18 19:59 03/30/18 11:41 4 DROPS Oxymetazoline HCl (Afrin 0.05% Nasal [place]) 1 sprays Q12 NA 03/29/18 21:00 04/03/18 20:59 03/30/18 11:39 1 SPRAYS Sodium Chloride (Sodium Chloride 0.9% Irrig) 30 ml BID IR 03/29/18 20:00 04/28/18 19:59 03/29/18 21:05 30 ML Atropine Sulfate (Atropine Sulfate 0.1mg/ml Inj) 0.5 mg Q1M PRN IV 03/30/18 11:15 03/31/18 17:15 Pantoprazole Sodium (Protonix Tab) 40 mg QAM PO 03/31/18 08:00 04/30/18 07:59 Objective Vital Signs Date Time Temp Pulse Resp B/P (MAP) Pulse Ox O2 Delivery O2 Flow Rate FiO2 03/30/18 17:01 Room Air 03/30/18 11:29 Room Air 03/30/18 11:27 36.5 77 16 156/78 (104) 100 Room Air 03/30/18 11:16 36.2 95 Room Air 03/30/18 11:12 73 14 03/30/18 11:12 72 14 97 03/30/18 11:11 155/72 03/30/18 11:07 71 14 98 03/30/18 11:07 71 14 03/30/18 11:06 155/76 03/30/18 11:05 71 14 96 03/30/18 11:05 70 14 03/30/18 11:01 145/75 7/30/18 11:00 70 16 97 03/30/18 11:00 71 16 03/30/18 10:59 74 16 03/30/18 10:59 76 16 97 03/30/18 10:56 147/76 03/30/18 10:54 71 18 97 03/30/18 10:54 72 18 03/30/18 10:50 151/66 03/30/18 10:49 36.6 72 18 151/66 95 Room Air 03/30/18 09:45 36.8 72 20 168/92 97 03/30/18 09:32 36.8 76 16 158/86 97 03/30/18 09:18 36.7 81 20 157/71 98 03/30/18 09:00 36.9 83 20 154/68 97 03/30/18 08:00 96 Room Air 03/30/18 07:36 36.7 81 16 150/81 (104) 96 03/30/18 03:20 36.4 85 18 154/80 (104) 98 Room Air 03/29/18 23:40 Room Air 03/29/18 22:37 36.7 86 18 139/77 (97) 97 Room Air 03/29/18 19:46 36.7 90 18 146/80 (102) 99 Room Air Physical Exam General Appearance: WD/WN, no apparent distress Eyes: normal inspection, EOMI, sclerae normal ENT: normal ENT inspection, pharynx normal Neck: supple, no adenopathy, thyroid normal, trachea midline Respiratory/Chest: chest non-tender, lungs clear, normal breath sounds, no respiratory distress Cardiovascular: regular rate, rhythm, no gallop, no murmur Abdomen: normal bowel sounds, non tender, soft, no organomegaly Extremities: non-tender, no calf tenderness, + pedal edema Neurologic/Psychiatric: alert, oriented x 3 Skin: normal color, warm/dry, no rash, + pertinent finding (Surgical dressing intact right chest wall) Lymphatic: no adenopathy Laboratory Results ---- RUN DATE: 03/30/18 [facility] LAB PAGE 1 RUN TIME: 716 Specimen Inquiry PATIENT: OMAR KULKARNI LOC: [place] U # : [id number] AGE/SX: 67/F ROOM: 07 REG : 03/26/[address]: Hu Haro MD, PhD : 1950 BED: 1 DIS : STATUS: ADM IN TLOC: SPEC #: [id number] MADISYN: 03/28/18 STATUS: RES REQ #: [id number] RECD: 03/28/18-[address]: Keny Segura M.D. SOURCE: BLOOD ENTR: 03/28/[address] [facility] DR: Claudio Marie MD SPDC: Parisa Black M.D. Lieb, James V. D.O. Pasquariello, Rick D M.D. ORDERED: BLOOD CULTURE COMMENTS: Drawn from CVAD per protocol. 10 cc discard. Procedure Result Verified Site BLD CULT Preliminary 03/30/18-07 NO GROWTH TO DATE. Last 24 Hours Test 03/30/18 05:59 White Blood Count 2.12 K/uL Red Blood Count 2.70 M/uL Hemoglobin 8.2 g/dL Hematocrit 24.4 % Mean Corpuscular Volume 90.4 fL Mean Corpuscular Hemoglobin 30.4 pg Mean Corpuscular Hemoglobin Concent 33.6 g/dl Platelet Count 14 K/uL Neutrophils (%) (Auto) 13.3 % Lymphocytes (%) (Auto) 82.5 % Monocytes (%) (Auto) 0.9 % Eosinophils (%) (Auto) 0.5 % Basophils (%) (Auto) 0.0 % Neutrophils # (Auto) 0.28 K/uL Lymphocytes # (Auto) 1.75 K/uL Monocytes # (Auto) 0.02 K/uL Eosinophils # (Auto) 0.01 K/uL Basophils # (Auto) 0.00 K/uL RDW Standard Deviation 47.8 fL RDW Coefficient of Variation 14.7 % Immature Granulocyte % (Auto) 2.8 % Immature Granulocyte # (Auto) 0.06 K/uL Toxic Granulation 2+ Dohle Bodies 1+ Phosphorus Level 2.4 mg/dl Magnesium Level 1.6 mg/dl Assessment and Plan 67-year-old female with 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 A port now removed, ENT consultation noted. Will continue patient on cefepime, likely in the range of 10 days of therapy. Will follow.
[2018-03-31] MEDS: RASPBERRY SYRUP 5 ML UDP PO SCH ×2 (00:09→05:57)
[2018-03-31] MEDS: VANCOMYCIN HCL 125 MG/2.5ML SOLN PO SCH ×2 (00:10→05:57)
[2018-03-31] MEDS: LORAZEPAM 0.5 MG TAB PO PRN (00:12)
[2018-03-31] MEDS: CEFEPIME IV 1,000 MG in SYRINGE 0 ML IV SCH ×2 (02:09→08:36)
[2018-03-31 04:02] VITALS: BP 152/83; PULSE 78; TEMP 36.4; O2SAT 96
[2018-03-31 07:19] LABS: CALCIUM 7.8 mg/dl (8.5-10.1); CREATININE 0.71 mg/dl (0.60-1.20); POTASSIUM 3.8 mmol/L (3.5-5.1)
[2018-03-31 07:49] VITALS: BP 148/85; PULSE 79; TEMP 36.6; O2SAT 95
[2018-03-31 07:53] LABS: HEMOGLOBIN 8.1 g/dL (12.0-16.0); MEAN CELL VOLUME 88.9 fL (80-100); MEAN CORPUSCULAR HGB CONC 33.8 g/dl (32-36); MEAN PLATELET VOLUME 10.4 fL (7.4-10.4); PLATELET COUNT 23 K/uL (130-400); RED CELL DISTRIBUTION WIDTH CV 14.4 % (11.5-14.5); RED CELL DISTRIBUTION WIDTH SD 45.9 fL (36.4-46.3); WHITE BLOOD COUNT 2.29 K/uL (4.8-10.8)
[2018-03-31] MEDS: CYANOCOBALAMIN 500 MCG TAB (VIT B-12) PO SCH (07:57)
[2018-03-31] MEDS: OXYMETAZOLINE HCL 0.05% NA SPR 15 ML BTL SCH (07:57)
[2018-03-31] MEDS: LACTOBACILLUS ACIDOPHILUS (FLORANEX) TAB PO SCH (07:57)
[2018-03-31] MEDS: CHOLECALCIFEROL 1000 INTER.UNIT TAB PO SCH (07:57)
[2018-03-31] MEDS: SODIUM CHLORIDE 0.9% IRRIG 1,000 ML PLCT IR SCH (07:58)
[2018-03-31] MEDS: CIPRO 0.3%/DEXAMETHASONE 0.1% OTIC SUSP 7.5ML OT SCH (07:58)
[2018-03-31] MEDS ORDERED: PANTOprazole SOD 40 MG TAB PO SCH (08:00)
[2018-03-31] MEDS ORDERED: MAGNESIUM SULFATE 1GM / D5W 100 ML IV STA (08:00)
[2018-03-31] MEDS ORDERED: MAGNESIUM OXIDE 400 MG TAB PO SCH (08:00)
[2018-03-31] MEDS ORDERED: CPRDOTS OT (08:13)
[2018-03-31] MEDS ORDERED: LCTX PO (08:13)
[2018-03-31] MEDS ORDERED: MGNO400 PO (08:13)
[2018-03-31] MEDS ORDERED: AFRIN (08:13)
[2018-03-31] MEDS ORDERED: VANC1SUS PO (08:13)
[2018-03-31] MEDS: MULTIVITAMIN TAB PO SCH (08:36)
[2018-03-31 08:37] LABS: EOS % 0.4 %; EOS ABS # 0.01 K/uL (0-0.5); LYMPH % 80.3 %; LYMPH ABS # 1.84 K/uL (1.2-3.4); MONO % 0.4 %; MONO ABS # 0.01 K/uL (0.11-0.59); NEUT % 18.9 %; NEUT ABS # 0.43 K/uL (1.4-6.5)
[2018-03-31] MEDS ORDERED: CPR500 PO (08:45)
--- NOTE | 2018-03-31 09:32 | Discharge Instructions ---
Discharge Instructions Date of Service Mar 31, 2018. Admission Reason for Admission: Neutropenic Fever,Pancytopenia Discharge Discharge Diagnosis / Problem: Pseudomonas Bacteremia Discharge Goals Goal(s): Decrease discomfort, Improve function, Increase independence, Improve disease control, Improve nutritional status, Learn about illness, Diagnostic testing, Therapeutic intervention, Prevent Disease Progression, Specific goals Activity Recommendations Activity Limitations: resume your previous activity . Instructions / Follow-Up Instructions / Follow-Up you have Pseudomonas Bacteremia, need to continue oral cipro for 7 days more you have acute on chronic left sphenoid sinusitis, and extensive right mastoid sinusitis. continue ear drop and nasal spray you have C diff colitis continue oral vancomycin, you have CLL/pancytopenia, you need to follow up with Dr. Elder, and [facility] oncology as instructed you have medical port removed, follow up with Dr. Gomez as instructed - you need to follow up with your primary care physician in 1 week, - take medication as instructed, never overdose or any misuse, or take with alcohol, because misuse of medicine may cause organ damage or , call me , or your primary care physician if have questions of discharge medicaitons. - call your primary care physician, or go to local emergency room if has any fever/chill, chest pain, shortness of breathing, nausea/vomiting/abdominal pain , facial droop/slurry speech/local weakness, or if has any questions. - fall precaution - diet as instructed - you need to follow up with your subspecialist, such as Dr. Dr. Elder, Dr. Gomez Current Hospital Diet Patient's current hospital diet: Regular Diet Discharge Diet Recommended Diet: Regular Diet Procedures Procedures Performed: Removal of Infusaport Pending Studies Studies pending at discharge: no Medical Emergencies . Who to Call and When: Medical Emergencies: If at any time you feel your situation is an emergency, please call 911 immediately. . Non-Emergent Contact Non-Emergency issues call your: Primary Care Provider, Oncologist . . "Provider Documentation" section prepared by Hu Haro. .
[2018-03-31 09:40] VITALS: BP 148/85; PULSE 79; TEMP 36.6; O2SAT 95
--- NOTE | 2018-03-31 10:04 | HEME/ONC PROGRESS NOTE ---
DATE: 03/31/2018 DIAGNOSES: 1. Pancytopenia attributable to ibrutinib. 2. Clostridium difficile colitis. 3. Pseudomonas bacteremia. SUBJECTIVE: I saw Zaira at bedside again today. She had her port removed yesterday after receiving platelet transfusion. I am pleased to see improvement in her absolute neutrophil count today. Her platelets obviously are a little bit better, status post transfusion. Hopefully, this is an indication that her bone marrow has started to function once again. Clinically, she is doing well. Diarrhea has slowed. At this point, I think she could be discharged from a hematologic standpoint with expedient followup. Nursing reports no overnight difficulties. PHYSICAL EXAMINATION: GENERAL: Zaira is in no acute distress. VITAL SIGNS: Temperature 36.6, pulse 79, respiratory rate 16, blood pressure 148/85. SKIN: Without rash or lesion. HEENT: Oral mucosa without erythema or ulceration. NECK: Supple. HEART: Regular rate and rhythm. LUNGS: Clear to auscultation. ABDOMEN: Soft, nontender, nondistended. EXTREMITIES: No clubbing, cyanosis, or edema. NEUROLOGIC: Grossly intact. LABORATORY DATA: WBC count 2290, hemoglobin 8.1, platelet count 23,000. Sodium 143, potassium 3.8, chloride 114, carbon dioxide 23, BUN 5, creatinine 0.71, magnesium slightly decreased at 1.5. IMPRESSION: 1. Hypomagnesemia. 2. Pancytopenia, attributable to ibrutinib. 3. Clostridium difficile colitis. 4. Pseudomonal bacteremia. PLAN: From a hematologic standpoint, I feel Zaira could be discharged. Would appreciate replacing her magnesium prior to discharge, otherwise I would like to see her in the office next week if possible. We will leave outpatient antimicrobials to your discretion. No further transfusional support is required and we will watch her closely moving forward. Again, I will have my staff obtain the bone marrow report for review, which will hopefully guide me moving forward in her care. I have nothing further to add at this point and will officially sign off with the assumption she will be discharged later today. Thank you for again assisting me in Zaira's care.
--- NOTE | 2018-03-31 10:35 | Anesthesiology Progress Note ---
Anesthesia Post Op Note Date & Time Mar 31, 2018 at 10:34 Vital Signs Pain Intensity: 0.0 Vital Signs Past 12 Hours Date Time Temp Pulse Resp B/P (MAP) Pulse Ox O2 Delivery O2 Flow Rate FiO2 03/31/18 09:40 36.6 79 16 95 Room Air 03/31/18 08:50 Room Air 03/31/18 07:49 36.6 79 16 148/85 (106) 95 Room Air 03/31/18 04:02 36.4 78 18 152/83 (106) 96 Room Air 03/30/18 23:17 36.7 85 16 155/81 (105) 96 Notes Mental Status: alert / awake / arousable, participated in evaluation Pt Amnestic to Procedure: Yes Nausea / Vomiting: adequately controlled Pain: adequately controlled Airway Patency, RR, SpO2: stable & adequate BP & HR: stable & adequate Hydration State: stable & adequate Anesthetic Complications: no major complications apparent
--- NOTE | 2018-03-31 16:01 | Discharge Summary ---
Discharge Summary Date of Service Mar 31, 2018. Discharge Summary Admission Date: Mar 26, 2018 at 15:28 Discharge Date: Mar 31, 2018 Principal Diagnosis: Pseudomonas Bacteremia Problems/Secondary Diagnoses: Pancytopenic Immunizations: Have You Had Influenza Vaccine: Unknown History of Tetanus Vaccine?: Unknown History of Pneumococcal: Unknown History of Hepatitis B Vaccine: Unknown Procedures: Port removal Consultations: Surgeon, infectious disease, oncologist Medication Reconciliation New Medications: Ciprofloxacin (Ciprofloxacin HCl) 500 Mg Tab 500 MG PO BID for 6 Days Ciprofloxacin/Dexamethasone (Ciprodex 0.3-0.1 %) 112 Drops/7.5 Ml Susp 4 DROPS OT BID for 4 Days Lactobacillus Acidophilus (Floranex) 1 Tab Tab 4 TAB PO TIDM for 7 Days, TAB Magnesium Oxide (Magnesium-Oxide) 400 Mg Tab 400 MG PO BID for 7 Days, TAB Oxymetazoline HCl (Afrin Nasal [place]) 75 Sprays/15 Ml [place] 1 SPRAYS NA Q12 for 10 Days, SPRAY Vancomycin HCl (Vancomycin HCl + Syrspend) 50 Mg/Ml [place] 125 MG PO Q6 for 7 Days Continued Medications: Cholecalciferol (Vitamin D-3) 1,000 Unit Tab 500 MG PO DAILY Cyanocobalamin (B-12) 500 Mcg Tab 500 MCG PO DAILY Ibrutinib (Imbruvica) 420 Mg Tab 420 MG PO DAILY Multivitamin (Multivitamin) Tab 1 TAB PO DAILY, TAB Discontinued Medications: Lorazepam (Ativan) 0.5 Mg Tab 0.5 MG PO HS PRN for Insomnia, TAB Discharge Exam Up and walk, no fever and chills, generally feeling good, Review of Systems: Constitutional: + weakness, + fatigue, No fever, No chills, No sweats, No weight loss, No problem reported Eyes: No worsening of vision, No eye pain, No redness, No discharge, No diplopia, No problem reported ENT: No hearing loss, No unusual epistaxis, No nasal symptoms, No sore throat, No tinnitus, No dental problems, No trouble swallowing, No problem reported Respiratory: No cough, No sputum, No wheezing, No shortness of breath, No dyspnea on exertion, No dyspnea at rest, No hemoptysis, No problem reported Abdomen: No pain, No nausea, No vomiting, No diarrhea, No constipation, No GI bleeding, No problem reported Musculoskeletal: No joint pain, No muscle pain, No swelling, No calf pain, No problem reported Genitourinary - Female: No dysuria, No urinary frequency, No urinary urgency , No urinary incontinence, No urinary retention, No hematuria, No dysmenorrhea, No menorrhagia, No metrorrhagia, No rash, No vaginal bleeding, No vaginal discharge, No vaginal itching, No vulvodynia, No , No problem reported Neurologic: No memory loss, No paralysis, No weakness, No numbness/tingling , No vertigo, No balance problems, No problem reported Psychiatric: No depression symptoms, No anhedonism, No anxiety, No insomnia , No substance abuse, No problem reported Endocrine: No fatigue, No excessive thirst, No excessive urination, No problem reported Hematologic / Lymphatic: No abnormal bleeding/bruising, No clotting problems , No swollen lymph nodes, No night sweats, No problem reported Integumentary: No rash, No itch, No new/changing skin lesions, No color change, No bleeding, No problem reported Physical Exam: General Appearance: WD/WN, no apparent distress Eyes: normal inspection, PERRL ENT: normal ENT inspection, hearing grossly normal, TMs normal Neck: supple, no adenopathy Respiratory/Chest: chest non-tender, + decreased breath sounds, + pertinent finding (Right anterior upper chest wall local wound mild tender, no obvious drainage ) Cardiovascular: regular rate, rhythm, no edema, no gallop, no JVD, no murmur Abdomen / GI: normal bowel sounds, non tender, soft, no organomegaly, no pulsatile mass Extremities: normal inspection, no calf tenderness Neurologic/Psychiatric: vp research II-XII nml as tested, no motor/sensory deficits , alert, normal mood/affect, normal reflexes, oriented x 3 Skin: normal color, warm/dry Hospital Course 67-year-old white female admitted on March 25 2018 because of neutropenic fever, gram negative bacteremia but not sepsis, Pseudomonas Bacteremia, repeated blood culture negative acute on chronic left sphenoid sinusitis, and extensive right mastoid sinusitis. abnormal CT of temporal bone on 03/06/18 describing an allergic fungal sinusitis involving the maxillary, frontal and ethmoid sinuses. ID has recommended Cefepime and ENT eval plus consideration of removal of A port , additional cultures to provide assurance of clearance of blood , all was done ENT saw patient, recommend Ciprodex right ear drop, Afrin nasal spray, normal saline sinus irrigation, do not feel that bacteremia is from sinus infection, and do not feel have pseudomonal all fungal infection in the sinus, does not need any procedure for now repeated blood culture negative Pseudomonal bacteremia, possible source of infection is A port , it was removed yesterday, talk to infectious disease softener options of antibiotic, he agrees Cipro for total to [address] Gomez removed a port yesterday, he sent some part of a port to culture, he will follow the culture results and give PCP on-call if any positive coming C diff colitis, stable, no more diarrhea, continue oral vancomycin, it was started 03/26/2018, need total 10-14 dAYS discontinue cholestyramine, CLL/pancytopenia--discontinue oral chemotherapy Imbruvica pancytopenia is a combination of chemotherapy induced and her underlying disease process Was transfused 4 units packed RBCs and 2 unit irradiated/leuko-reduced platelets Received Neupogen 480 mcg subcu on 03/23, additional dose 03/25, 03/27 Previous hospitalist did call [facility] oncology and they recommended holding chemo and support with blood products Discussed with Electrolyte abnormalities/ hypokalemia/hypomagnesemia F/u, and monitoring, , DC IVF dvt prevention is contraindicated due to low platelets Patient discharged home in stable condition Instructions / Follow-Up you have Pseudomonas Bacteremia, need to continue oral cipro for 7 days more you have acute on chronic left sphenoid sinusitis, and extensive right mastoid sinusitis. continue ear drop and nasal spray you have C diff colitis continue oral vancomycin, you have CLL/pancytopenia, you need to follow up with Dr. Elder, and [facility] oncology as instructed you have medical port removed, follow up with Dr. Gomez as instructed - you need to follow up with your primary care physician in 1 week, - take medication as instructed, never overdose or any misuse, or take with alcohol, because misuse of medicine may cause organ damage or , call me , or your primary care physician if have questions of discharge medicaitons. - call your primary care physician, or go to local emergency room if has any fever/chill, chest pain, shortness of breathing, nausea/vomiting/abdominal pain , facial droop/slurry speech/local weakness, or if has any questions. - fall precaution - diet as instructed - you need to follow up with your subspecialist, such as Dr. Dr. Elder, Dr. Gomez Total Time Spent: Greater than 30 minutes This includes examination of the patient, discharge planning, medication reconciliation, and communication with other providers. Discharge Instructions Please refer to the electronic Patient Visit Report (Discharge Instructions) for additional information. Additional Copies To Jimmie Gomez M.D.; Parisa Black M.D.; Heron Elder D.O.
[2018-03-31] MEDS ORDERED: CIPROFLOXACIN 500 MG TAB PO SCH (20:00)
== END 2018-03-31 11:09 | disposition home or self-care (01) | DRG 314 ==
LOC: C.EDB 21:18 → C.4E 03-25 01:52 → ENRESERV 03-25 02:04 → OBSVTOIN 03-26 15:28
PROVIDERS: ADMIT Hospitalist; ATTEND Hospitalist
PROC: 02PY33Z Removal of Infusion Device from Great Vessel, Percutaneous Approach (ICD-10-PCS; principal; 2018-03-30 09:30)
PROC: 0JPT0XZ Removal of Tunneled Vascular Access Device from Trunk Subcutaneous Tissue and Fascia, Open Approach (ICD-10-PCS; principal; 2018-03-30 09:30)
DX: T80.211A Bloodstream infection due to central venous catheter, initial encounter (principal); D61.810 Antineoplastic chemotherapy induced pancytopenia; R78.81 Bacteremia; C91.90 Lymphoid leukemia, unspecified not having achieved remission; T45.1X5A Adverse effect of antineoplastic and immunosuppressive drugs, initial encounter; E83.42 Hypomagnesemia; R19.7 Diarrhea, unspecified; B96.4 Proteus (mirabilis) (morganii) as the cause of diseases classified elsewhere; B96.89 Other specified bacterial agents as the cause of diseases classified elsewhere; J32.4 Chronic pansinusitis; H70.90 Unspecified mastoiditis, unspecified ear; E87.6 Hypokalemia; Y92.019 Unspecified place in single-family (private) house as the place of occurrence of the external cause; Y83.1 Surgical operation with implant of artificial internal device as the cause of abnormal reaction of the patient, or of later complication, without mention of misadventure at the time of the procedure

== ENCOUNTER 2018-04-18 09:23 | Inpatient (IN) | payer OTHER, BC ==
[~2018-04-18] VITALS: Ht 162.6 cm; Wt 84.7 kg
[~2018-04-18 09:23] MED LIST changes: +AFRIN; -ATV5 PO; +CPR500 PO; +CPRDOTS OT; +LCTX PO; +MGNO400 PO; +MULT-506 PO; +VANC1SUS PO
[2018-04-18] MEDS ORDERED: SODIUM CHLORIDE 0.9% 1000ML 1,000 ML IV STA (09:42)
[2018-04-18 10:29] LABS: PTT PATIENT 23.4 SECONDS (21.0-31.0)
[2018-04-18 10:41] LABS: ALBUMIN 3.3 gm/dl (3.4-5.0); CALCIUM 7.9 mg/dl (8.5-10.1); CREATININE 0.9 mg/dl (0.60-1.20); POTASSIUM 4.3 mmol/L (3.5-5.1); TOTAL PROTEIN 6.6 gm/dl (6.4-8.2)
[2018-04-18 10:51] LABS: HEMATOCRIT 23.9 % (37-47); HEMOGLOBIN 8.2 g/dL (12.0-16.0); MEAN CELL VOLUME 87.2 fL (80-100); MEAN CORPUSCULAR HEMOGLOBIN 29.9 pg (25-34); MEAN CORPUSCULAR HGB CONC 34.3 g/dl (32-36); MEAN PLATELET VOLUME 10.2 fL (7.4-10.4); PLATELET COUNT 36 K/uL (130-400); RED CELL DISTRIBUTION WIDTH CV 15.1 % (11.5-14.5); RED CELL DISTRIBUTION WIDTH SD 45.3 fL (36.4-46.3); WHITE BLOOD COUNT 6.51 K/uL (4.8-10.8)
--- NOTE | 2018-04-18 10:54 | DIAGNOSTIC IMAGING REPORT ---
CHEST 2 VIEWS ROUTINE CLINICAL HISTORY: 67 years-old Female presenting with SOB. TECHNIQUE: PA and lateral views of the chest were obtained. COMPARISON: 03/24/2018. FINDINGS: Cardiomediastinal silhouette normal. Lungs and pleural spaces clear. Osseous structures normal. Surgical clips project over the epigastrium. 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 IMPRESSION: 1. No acute cardiopulmonary disease. Electronically signed by: Javier Adam M.D. 04/18/2018 10:53 AM Dictated Date/Time: 04/18/2018 10:52 AM
[2018-04-18] MEDS ORDERED: CEFEPIME IV 1,000 MG in DEXTROSE 5% 100ML 100 ML IV STA (11:37)
--- NOTE | 2018-04-18 11:49 | EMERGENCY ROOM VISIT NOTE ---
History Report prepared by Valentin: Skip Mckeon Under the Supervision of: Dr. Jovani Galvez M.D. First contact with patient: 09:37 Chief Complaint: FEVER Stated Complaint: CLL TEMP GREATER THAN 102.1 History of Present Illness The patient is a 67 year old female who presents to the Emergency Room with complaints of a worsening fever that was first noticed yesterday evening. The patient states that her fever was climbing to 98.0 and 99.0 degrees last night and reached a peak temperature of 102.8 degrees this morning at 0800, 1.5 hours ago. The patient also complains of some difficulty breathing and nausea/ diarrhea. She denies any chest pain or vomiting. The patient has CLL and was receiving oral chemotherapeutics. She had the chemotherapy stopped after being admitted on March 23. She notes the chemo was stopped due to her being "full of infection." The patient notes that while she was admitted she received 8 blood transfusions and 3 platelets. She has not had any hematuria, hematochezia , or melena. Source of History: patient Onset: Yesterday Symptom Intensity: 102.8 degree peak fever Quality: other (Fever) Timing: worsening Associated Symptoms: + SOB, + nausea, + diarrhea, No chest pain, No vomiting , No melena, No hematochezia Review of Systems See HPI for pertinent positives and negatives. A total of ten systems were reviewed and were otherwise negative. Past Medical & Surgical Medical Problems: (1) CLL (chronic lymphocytic leukemia) Social History Smoking Status: Never Smoker Drug Use: none Marital Status: Housing Status: lives with family Occupation Status: retired Current/Historical Medications Scheduled Cholecalciferol (Vitamin D-3), 500 MG PO DAILY Cyanocobalamin (B-12), 500 MCG PO DAILY Multivitamin (Multivitamin), 1 TAB PO DAILY Allergies Coded Allergies: Azithromycin (Verified Allergy, Unknown, HIVES, 04/18/18) Physical Exam Vital Signs Date Time Temp Pulse Resp B/P (MAP) Pulse Ox O2 Delivery O2 Flow Rate FiO2 04/18/18 11:09 37.9 104 18 147/75 95 Room Air 04/18/18 09:38 37.4 118 20 105/64 100 Room Air Physical Exam Physical Exam GENERAL: She is oriented to person, place, and time. She appears well- developed and well-nourished. She does not appear distressed. HENT: Exam performed. Head: Normocephalic and atraumatic. Right Ear: External ear normal. No mastoid tenderness. Left Ear: External ear normal. No mastoid tenderness. Mouth/Throat: The oropharynx is clear and moist. No trismus in the jaw. No dental abscesses or uvula swelling. No oropharyngeal exudate or tonsillar abscesses. EYES: Conjunctivae are pale, and EOM are normal. Pupils are equal, round, and reactive to light. Right eye exhibits no discharge. Left eye exhibits no discharge. No scleral icterus. NECK: Normal range of motion. Neck supple. No JVD present. No spinous process tenderness present. No carotid bruit present. No rigidity. No tracheal deviation and normal range of motion present. No Brudzinski's sign and no Kernig 's sign noted. CV: Tachycardic rate, and regular rhythm, normal heart sounds and intact distal pulses. There is no peripheral edema. Palpable radial pulses bue. PULM/CHEST: Effort normal and breath sounds normal. No respiratory distress. No stridor. She has no wheezes. She has no rales. Chest Wall: She exhibits no tenderness. ABD: The abdomen is soft. Bowel sounds are normal. She has no distension. No mass is present. There is no tenderness. There is no rebound, no guarding, no Hoffman's sign and no tenderness at McBurney's point. Rovsig negative MUSC/SKEL: Normal range of motion. There is no peripheral edema, tenderness or deformity. LYMPH: No cervical adenopathy. NEURO: She is alert and oriented to person, place, and time. She has normal strength. No cranial nerve deficit or sensory deficit. Coordination and gait normal. GCS eye subscore is 4. GCS verbal subscore is 5. GCS motor subscore is 6. Cerebellar tests wnl. SKIN: Skin is pale. Skin is warm and dry. She is not diaphoretic. PSYCH: She has a normal mood and affect. Behavior is normal. Judgment and thought content normal. Medical Decision & Procedures ER Provider Diagnostic Interpretation: Radiology results as stated below per my review and radiologist interpretation: CHEST 2 VIEWS ROUTINE CLINICAL HISTORY: 67 years-old Female presenting with SOB. TECHNIQUE: PA and lateral views of the chest were obtained. COMPARISON: 03/24/2018. FINDINGS: Cardiomediastinal silhouette normal. Lungs and pleural spaces clear. Osseous structures normal. Surgical clips project over the epigastrium. 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 IMPRESSION: 1. No acute cardiopulmonary disease. Electronically signed by: Javier Adam M.D. 04/18/2018 10:53 AM Dictated Date/Time: 04/18/2018 10:52 AM Laboratory Results 04/18/18 10:05 Red Blood Count 2.74, Mean Corpuscular Volume 87.2, Mean Corpuscular Hemoglobin 29.9, Mean Corpuscular Hemoglobin Concent 34.3, Mean Platelet Volume 10.2 04/18/18 10:05 Test 04/18/18 10:05 White Blood Count 6.51 K/uL (4.8-10.8) Red Blood Count 2.74 M/uL (4.2-5.4) Hemoglobin 8.2 g/dL (12.0-16.0) Hematocrit 23.9 % (37-47) Mean Corpuscular Volume 87.2 fL (80-100) Mean Corpuscular Hemoglobin 29.9 pg (25-34) Mean Corpuscular Hemoglobin Concent 34.3 g/dl (32-36) Platelet Count 36 K/uL (130-400) Mean Platelet Volume 10.2 fL (7.4-10.4) RDW Standard Deviation 45.3 fL (36.4-46.3) RDW Coefficient of Variation 15.1 % (11.5-14.5) Neutrophils % (Manual) 1.7 % Lymphocytes % (Manual) 98.3 % Neutrophils # (Manual) 0.11 K/uL (1.4-6.5) Total Absolute Neutrophils 0.11 K/uL (1.4-6.5) Lymphocytes # (Manual) 6.40 K/uL (1.2-3.4) Total Absolute Lymphocytes 6.40 K/uL (1.2-3.4) Smudge Cells PRESENT Prothrombin Time 10.3 SECONDS (9.0-12.0) Prothromb Time International Ratio 1.0 (0.9-1.1) Activated Partial Thromboplast Time 23.4 SECONDS (21.0-31.0) Partial Thromboplastin Ratio 0.9 Anion Gap 9.0 mmol/L (3-11) Est Creatinine Clear Calc Drug Dose 64.1 ml/min Estimated GFR () 76.7 Estimated GFR (Non- 66.2 BUN/Creatinine Ratio 14.5 (10-20) Lactic Acid Level 1.5 mmol/L (0.4-2.0) Calcium Level 7.9 mg/dl (8.5-10.1) Total Bilirubin 1.4 mg/dl (0.2-1) Direct Bilirubin 0.4 mg/dl (0-0.2) Aspartate Amino Transf (AST/SGOT) 17 U/L (15-37) Alanine Aminotransferase (ALT/SGPT) 20 U/L (12-78) Alkaline Phosphatase 227 U/L (45-117) Total Protein 6.6 gm/dl (6.4-8.2) Albumin 3.3 gm/dl (3.4-5.0) Lipase 52 U/L (73-393) Laboratory results reviewed by me Medications Administered Medications (Trade) Dose Ordered Sig/Quita Route Start Time Stop Time Status Last Admin Dose Admin Sodium Chloride 1,000 ml @ 999 mls/hr Q1H1M STAT IV 04/18/18 09:42 04/18/18 10:42 DC 04/18/18 09:42 999 MLS/HR Cefepime HCl 1000 mg/Dextrose 111 ml @ 200 mls/hr NOW STAT IV 04/18/18 11:37 04/18/18 12:10 DC 04/18/18 11:37 200 MLS/HR Acetaminophen (Tylenol Tab) 650 mg Q4H PRN PO 04/18/18 12:00 05/18/18 11:59 04/18/18 13:32 650 MG ECG Per My Interpretation Indication: other (Arrhythmia, Sepsis) Rate (beats per minute): 107 Rhythm: sinus rhythm Findings: other (No ALMA ROSA/STD, QRS,QTC,AL WNL) ED Course 0937: The patient was evaluated in room B9. A complete history and physical exam was performed. 0942: Ordered Sodium Chloride 1000 mL @ 999 mL/hr IV. 1134: I discussed the case with Dr. Mata [facility]. He suggests admitting to hospital. Labs show low ANC, will treat with cefepime for neutropenic fever. Lactic acid within normal limits. Chest x-ray within normal limits. Ordered Cefepime HCl 111 mL @ 200 mL/hr IV. Dr. Jess MOHAN Hospitalist is aware of the patient. Medical Decision 0937: The patient was evaluated in room B9. A complete history and physical exam was performed. 0942: Ordered Sodium Chloride 1000 mL @ 999 mL/hr IV. 1134: I discussed the case with Dr. Adolfo [facility]. He suggests admitting to hospital. Labs show low ANC, will treat with cefepime for neutropenic fever. Lactic acid within normal limits. Chest x-ray within normal limits. Ordered Cefepime HCl 111 mL @ 200 mL/hr IV. Dr. Jess MOHAN Hospitalist is aware of the patient. Medication Reconcilliation Current Medication List: was personally reviewed by me Blood Pressure Screening Patient's blood pressure: Elevated blood pressure Blood pressure disposition: Elevated BP felt to be situational Consults Time Called: 1130 Consulting Physician: Dr. Adolfo [facility] Returned Call: 1134 I discussed the case with Dr. Adolfo [facility]. He suggests admitting to hospital. Additional Consults: Time Called: 1142 Consulted Physician: Dr. Jess MOHAN Hospitalist Returned Call: 1142 Additional Comments: Dr. Jess MOHAN Hospitalist is aware of the patient. Impression Primary Impression: Neutropenic fever Scribe Attestation The scribe's documentation has been prepared under my direction and personally reviewed by me in its entirety. I confirm that the note above accurately reflects all work, treatment, procedures, and medical decision making performed by me. The chart was completed utilizing [employer] Speech voice recognition software. Grammatical errors, random word insertions, pronoun errors, and incomplete sentences are an occasional consequence of this system due to software limitations, ambient noise, and hardware issues. Any formal questions or concerns about the content, text, or information contained within the body of this dictation should be directly addressed to the physician for clarification. Departure Information Dispostion Being Evaluated By Hospitalist Referrals No Doctor, Assigned (PCP) Patient Instructions My [facility]
[2018-04-18] MEDS ORDERED: ALUMINUM/MAGNESIUM/SIMETH (MAALOX MAX) 30 ML UDC PO PRN (12:00)
[2018-04-18] MEDS ORDERED: MAGNESIUM HYDROXIDE SUSP 30 ML UDC PO PRN (12:00)
[2018-04-18] MEDS ORDERED: POLYETHYLENE (MIRALAX) 17 GM PACK PO PRN (12:00)
[2018-04-18] MEDS ORDERED: ONDANSETRON INJ 2 MG/ML 2 ML VIAL IV PRN (12:00)
--- NOTE | 2018-04-18 12:06 | History and Physical ---
History & Physical Date & Time of Service: Apr 18, 2018 at 12:02 Chief Complaint: Cll Temp Greater Than 102.1 Primary Care Physician: Parisa Black M.D. History of Present Illness Source: patient, hospital records, other 67 y/o F Hx CLL, pancytopenia. Recent admissions for transfusions and FUO/ neutropenic fever with cultures (+) for Pseudomonas. The pt presents with nausea, diarrhea and a fever. Labs are notable for pancytopenia. She denies a cough, LEDESMA, sinus congestion or dysuria. The pt was receiving Imbruvica prior to January when it was held due to recurrent infection. She had acquired C diff during her last admission 03/18. She reports that her diarrhea had resolved with treatment and has returned over the past 3 days. Initial labs confirm pancytopenia with an ANC of 0.11 and a platelet count of 36. This does not represent a significant change from recent labs which she follows weekly with her police magistrate. A fever of 37.5 was observed on arrival to the ER. Past Medical/Surgical History 1) Small cell lymphoma 2) CLL 3) Pancytopenia 4) Recurrent infections - infection with cultures growing pseudomonas, C diff infection 03/2018 Family History Noncontributory to current presentation Social History Does not smoke or drink Smoking Status: Never Smoker Drug Use: none Marital Status: Housing status: lives with family Occupational Status: retired Immunizations History of Influenza Vaccine: Unknown History of Tetanus Vaccine?: Unknown History of Pneumococcal: Unknown History of Hepatitis B Vaccine: Unknown Allergies Coded Allergies: Azithromycin (Verified Allergy, Unknown, HIVES, 04/18/18) Home Medications Scheduled Cholecalciferol (Vitamin D-3), 500 MG PO DAILY Cyanocobalamin (B-12), 500 MCG PO DAILY Multivitamin (Multivitamin), 1 TAB PO DAILY Review of Systems Constitutional: + weakness, + fatigue, No fever, No chills, No sweats Eyes: No worsening of vision ENT: No hearing loss Respiratory: + dyspnea on exertion (chronic), No cough, No sputum, No wheezing Cardiovascular: No chest pain, No orthopnea, No PND Abdomen: + nausea, + diarrhea, No pain, No vomiting Musculoskeletal: No joint pain Genitourinary - Female: No dysuria, No urinary frequency, No urinary urgency Neurologic: No memory loss, No paralysis Psychiatric: No depression symptoms Endocrine: No fatigue Hematologic / Lymphatic: + problem reported (pancytopenia), No abnormal bleeding/bruising Integumentary: No rash Allergic / Immunologic: No environmental allergies Physical Exam Vital Signs Date Time Temp Pulse Resp B/P (MAP) Pulse Ox O2 Delivery O2 Flow Rate FiO2 04/18/18 11:09 37.9 104 18 147/75 95 Room Air 04/18/18 09:38 37.4 118 20 105/64 100 Room Air General Appearance: + pertinent finding (Pale, middle-aged female - no distress ) Head: normocephalic Eyes: normal inspection ENT: normal ENT inspection Neck: supple, no JVD Respiratory/Chest: chest non-tender, lungs clear, normal breath sounds Cardiovascular: regular rate, rhythm, no edema, no gallop Abdomen/GI: normal bowel sounds, non tender, soft Back: normal inspection, no CVA tenderness Extremities/Musculoskelatal: normal inspection, no calf tenderness, normal capillary refill Neurologic/Psych: die maker trim II-XII nml as tested, no motor/sensory deficits, alert, oriented x 3 Skin: warm/dry, + pallor Diagnostics Laboratory Results Results Past 24 Hours Test 04/18/18 10:05 Range/Units White Blood Count 6.51 4.8-10.8 K/uL Red Blood Count 2.74 4.2-5.4 M/uL Hemoglobin 8.2 12.0-16.0 g/dL Hematocrit 23.9 37-47 % Mean Corpuscular Volume 87.2 80-100 fL Mean Corpuscular Hemoglobin 29.9 25-34 pg Mean Corpuscular Hemoglobin Concent 34.3 32-36 g/dl Platelet Count 36 130-400 K/uL Mean Platelet Volume 10.2 7.4-10.4 fL RDW Standard Deviation 45.3 36.4-46.3 fL RDW Coefficient of Variation 15.1 11.5-14.5 % Neutrophils % (Manual) 1.7 % Lymphocytes % (Manual) 98.3 % Neutrophils # (Manual) 0.11 1.4-6.5 K/uL Total Absolute Neutrophils 0.11 1.4-6.5 K/uL Lymphocytes # (Manual) 6.40 1.2-3.4 K/uL Total Absolute Lymphocytes 6.40 1.2-3.4 K/uL Smudge Cells PRESENT Prothrombin Time 10.3 9.0-12.0 SECONDS Prothromb Time International Ratio 1.0 0.9-1.1 Activated Partial Thromboplast Time 23.4 21.0-31.0 SECONDS Partial Thromboplastin Ratio 0.9 Sodium Level 135 136-145 mmol/L Potassium Level 4.3 3.5-5.1 mmol/L Chloride Level 104 98-107 mmol/L Carbon Dioxide Level 22 21-32 mmol/L Anion Gap 9.0 3-11 mmol/L Blood Urea Nitrogen 13 7-18 mg/dl Creatinine 0.90 0.60-1.20 mg/dl Est Creatinine Clear Calc Drug Dose 64.1 ml/min Estimated GFR () 76.7 Estimated GFR (Non- 66.2 BUN/Creatinine Ratio 14.5 10-20 Random Glucose 104 70-99 mg/dl Lactic Acid Level 1.5 0.4-2.0 mmol/L Calcium Level 7.9 8.5-10.1 mg/dl Total Bilirubin 1.4 0.2-1 mg/dl Direct Bilirubin 0.4 0-0.2 mg/dl Aspartate Amino Transf (AST/SGOT) 17 15-37 U/L Alanine Aminotransferase (ALT/SGPT) 20 12-78 U/L Alkaline Phosphatase 227 45-117 U/L Total Protein 6.6 6.4-8.2 gm/dl Albumin 3.3 3.4-5.0 gm/dl Lipase 52 73-393 U/L CXR normal Impression Assessment and Plan 67 y/o F Hx CLL, pancytopenia. Recent admissions for transfusions and FUO/ neutropenic fever with cultures (+) for Pseudomonas. The pt presents with nausea, diarrhea and a fever. Labs are notable for pancytopenia. She denies a cough, LEDESMA, sinus congestion or dysuria. The pt was receiving Imbruvica prior to January when it was held due to recurrent infection. She had acquired C diff during her last admission 03/18. She reports that her diarrhea had resolved with treatment and has returned over the past 3 days. Initial labs confirm pancytopenia with an ANC of 0.11 and a platelet count of 36. This does not represent a significant change from recent labs which she follows weekly with her police magistrate. A fever of 37.5 was observed on arrival to the ER. 1) Infection - neutropenic fever - we will treat empirically for Pseudomonas and C diff owing to recent cultures and her diarrhea. We will hold off on Vanc as she does not currently have an access line. Cultures results and a UA are pending on admission. 2) Pancytopenia - labs have not significantly changed - we will trend Q12h as she may need transfusions - we will consult her Table Inspector regarding potential Neupogen use. 3) CLL - not currently being treated due to recurrent infections. Can f/u with hematology as outpt. Full code - SCDs Total time for this admit including review of labs, meds, imaging, records - discussion with pt and ER attending - 39 min Resuscitation Status VTE Prophylaxis Will order VTE Prophylaxis: Yes Reason for no VTE drug order: Contraindicated Reason no Mechanical VTE Order: Treatment not tolerated
[2018-04-18 12:10] VITALS: O2SAT 99; BMI 32.3
[2018-04-18 13:22] VITALS: BP 155/80; PULSE 112; TEMP 39.5; O2SAT 98
[2018-04-18] MEDS: D5W AND NSS 1,000 ML IV SCH (13:32)
[2018-04-18] MEDS: ACETAMINOPHEN 325 MG TAB PO PRN ×2 (13:32→19:44)
[2018-04-18] MEDS: VANCOMYCIN HCL 125 MG/2.5ML SOLN PO SCH ×3 (14:16→19:44)
[2018-04-18] MEDS: RASPBERRY SYRUP 5 ML UDP PO SCH ×3 (14:16→19:44)
[2018-04-18 14:17] VITALS: TEMP 37.9
[2018-04-18 15:38] VITALS: BMI 32.3
[2018-04-18 18:58] VITALS: BP 141/77; PULSE 116; TEMP 38.9; O2SAT 100
[2018-04-18] MEDS: CALCIUM 600MG + VIT D 400 IU TAB PO SCH (19:43)
[2018-04-18 22:51] VITALS: BP 137/81; PULSE 99; TEMP 37.2; O2SAT 96
[2018-04-18 23:11] LABS: HEMATOCRIT 18.3 % (37-47); HEMOGLOBIN 6.3 g/dL (12.0-16.0); MEAN CELL VOLUME 86.3 fL (80-100); MEAN CORPUSCULAR HEMOGLOBIN 29.7 pg (25-34); MEAN CORPUSCULAR HGB CONC 34.4 g/dl (32-36); MEAN PLATELET VOLUME 11.8 fL (7.4-10.4); PLATELET COUNT 30 K/uL (130-400); RED CELL DISTRIBUTION WIDTH SD 45.2 fL (36.4-46.3); WHITE BLOOD COUNT 5.54 K/uL (4.8-10.8)
[2018-04-19] VITALS (16 sets, daily range): BP systolic 111–139; BP diastolic 70–88; PULSE 87–108; TEMP 36.5–38.6; O2SAT 94–100; BMI 32.1
[2018-04-19] MEDS: D5W AND NSS 1,000 ML IV SCH (00:27)
[2018-04-19] MEDS: ACETAMINOPHEN 325 MG TAB PO PRN (01:44)
[2018-04-19] MEDS: VANCOMYCIN HCL 125 MG/2.5ML SOLN PO SCH ×2 (08:10→12:04)
[2018-04-19] MEDS: RASPBERRY SYRUP 5 ML UDP PO SCH ×2 (08:10→12:04)
[2018-04-19] MEDS: CYANOCOBALAMIN 500 MCG TAB (VIT B-12) PO SCH (08:11)
[2018-04-19] MEDS: CHOLECALCIFEROL 1000 INTER.UNIT TAB PO SCH (08:11)
[2018-04-19] MEDS: CALCIUM 600MG + VIT D 400 IU TAB PO SCH (08:11)
[2018-04-19 08:19] LABS: HEMATOCRIT 26.8 % (37-47); HEMOGLOBIN 9.3 g/dL (12.0-16.0); MEAN CELL VOLUME 87.9 fL (80-100); MEAN CORPUSCULAR HEMOGLOBIN 30.5 pg (25-34); MEAN CORPUSCULAR HGB CONC 34.7 g/dl (32-36); MEAN PLATELET VOLUME 10.9 fL (7.4-10.4); PLATELET COUNT 27 K/uL (130-400); RED CELL DISTRIBUTION WIDTH CV 14.8 % (11.5-14.5); RED CELL DISTRIBUTION WIDTH SD 45.5 fL (36.4-46.3); WHITE BLOOD COUNT 6.44 K/uL (4.8-10.8)
[2018-04-19 08:36] LABS: CALCIUM 7.6 mg/dl (8.5-10.1); CREATININE 0.71 mg/dl (0.60-1.20); POTASSIUM 3.8 mmol/L (3.5-5.1)
[2018-04-19 12:16] LABS: HEMATOCRIT 25.8 % (37-47)
--- NOTE | 2018-04-19 12:21 | Oncology Consultation ---
Oncology/Heme Consultation Date of Consultation: Apr 19, 2018. Attending Physician: Hu Haro MD, PhD Reason for Consultation: Pancytopenia Febrile neutropenia History of Present Illness Ms. Andres is a 67 year old woman with a history of CLL. She was admitted here twice late last month for complications related to her counts. She needed a blood transfusion 03/23 and was discharged the following day. She then was admitted from 03/26 - 03/31 for fevers that proved to be related to pseudomonal bacteremia and C diff colitis. She was discharged on Cipro for the pseudomonas and PO vanco for the C diff. She completed both courses and was doing well, though she did have a couple of days of recurrent diarrhea leading up to her readmission. She presented to the ER yesterday with fevers of 101 at home. She denies any other localizing symptoms today, such as cough, purulent sputum, dysuria, hematuria, sinusitis, or rash. She has been off of ibrutinib since her previous admission. Past Medical/Surgical History Medical Problems: (1) Hypomagnesemia Status: Acute (2) Neutropenic fever Status: Acute (3) Neutropenic fever Status: Acute Social History Smoking Status: Never Smoker Drug Use: none Marital Status: Housing Status: lives with family Occupation Status: retired Allergies Coded Allergies: Azithromycin (Verified Allergy, Unknown, HIVES, 04/18/18) Home Medications Scheduled Cholecalciferol (Vitamin D-3), 500 MG PO DAILY Cyanocobalamin (B-12), 500 MCG PO DAILY Multivitamin (Multivitamin), 1 TAB PO DAILY Current Inpatient Medications Current Inpatient Medications Medications (Trade) Dose Ordered Sig/Quita Route Start Time Stop Time Status Last Admin Dose Admin Cyanocobalamin (Vitamin B-12 Tab) 500 mcg DAILY PO 04/19/18 08:00 05/19/18 08:59 04/19/18 08:11 500 MCG Cholecalciferol (Vitamin D Tab) 1,000 inter.unit DAILY PO 04/19/18 08:00 05/19/18 08:59 04/19/18 08:11 1,000 INTER.UNIT Calcium/Vitamin D (Caltrate Plus Tab) 1 tab BID PO 04/18/18 20:00 05/18/18 20:59 04/19/18 08:11 1 TAB Acetaminophen (Tylenol Tab) 650 mg Q4H PRN PO 04/18/18 12:00 05/18/18 11:59 04/19/18 01:44 650 MG Al Hydrox/Mg Hydrox/Simethicone (Maalox Max Susp) 15 ml Q4H PRN PO 04/18/18 12:00 05/18/18 11:59 Magnesium Hydroxide (Milk Of Magnesia Susp) 30 ml Q6H PRN PO 04/18/18 12:00 05/18/18 11:59 Polyethylene (Miralax Powder Packet) 17 gm DAILY PRN PO 04/18/18 12:00 05/18/18 11:59 Zolpidem Tartrate (Ambien Tab) 5 mg HSZ PRN PO 04/18/18 12:00 05/18/18 11:59 Ondansetron HCl (Zofran Inj) 4 mg Q6H PRN IV 04/18/18 12:00 05/18/18 11:59 Vancomycin HCl (Vancomycin Oral Soln) 125 mg QID PO 04/18/18 14:00 04/28/18 13:59 04/19/18 08:10 125 MG Raspberry (Raspberry Syrup 5ml Cup) 5 ml QID PO 04/18/18 14:00 05/02/18 13:59 04/19/18 08:10 5 ML Review of Systems Constitutional: + fever, + weakness, + fatigue ENT: No unusual epistaxis, No nasal symptoms Respiratory: No cough, No shortness of breath, No hemoptysis Cardiovascular: No chest pain Abdomen: + diarrhea, No pain, No nausea Musculoskeletal: No joint pain, No muscle pain Genitourinary - Female: No dysuria, No hematuria Hematologic / Lymphatic: No abnormal bleeding/bruising Integumentary: No rash Physical Exam Date Time Temp Pulse Resp B/P (MAP) Pulse Ox O2 Delivery O2 Flow Rate FiO2 04/19/18 11:16 36.6 100 16 130/88 (102) 99 04/19/18 08:00 Room Air 04/19/18 06:55 36.7 105 16 132/80 99 04/19/18 06:00 36.7 95 18 136/82 99 04/19/18 05:00 36.6 102 18 132/79 100 04/19/18 04:45 36.5 107 18 117/76 96 04/19/18 04:26 36.5 89 16 111/70 96 04/19/18 03:56 36.7 95 18 125/73 95 04/19/18 02:50 37.3 93 18 115/71 96 04/19/18 02:16 37.3 108 18 129/74 96 04/19/18 01:30 38.6 105 16 136/76 98 04/19/18 01:00 37.4 105 18 139/82 99 04/19/18 00:43 37.3 108 16 136/76 100 04/19/18 00:15 Room Air 04/18/18 22:51 37.2 99 18 137/81 (99) 96 Room Air 04/18/18 18:58 38.9 116 24 141/77 (98) 100 Room Air 04/18/18 16:00 Room Air 04/18/18 14:17 37.9 04/18/18 13:22 39.5 112 18 155/80 (105) 98 Room Air 04/18/18 13:04 119 16 138/73 96 04/18/18 12:20 106 18 151/71 99 Room Air 04/18/18 12:10 99 Room Air General Appearance: no apparent distress, + pertinent finding (chronically ill- appearing) ENT: pharynx normal Respiratory/Chest: lungs clear Cardiovascular: regular rate, rhythm Abdomen/GI: non tender, soft Extremities/Musculoskelatal: no pedal edema Neurologic/Psych: alert, oriented x 3 Skin: no rash Laboratory Results Last 24 Hours Test 04/18/18 12:16 04/18/18 20:17 04/19/18 07:54 04/19/18 10:30 Urine Color YELLOW Urine Appearance CLOUDY Urine pH 5.0 Urine Specific [place] 1.018 Urine Protein TRACE Urine Glucose (UA) NEG Urine Ketones TRACE Urine Occult Blood 1+ Urine Nitrite NEG Urine Bilirubin NEG Urine Urobilinogen NEG Urine Leukocyte Esterase NEG Urine WBC (Auto) 1-5 /hpf Urine RBC (Auto) 0-4 /hpf Urine Hyaline Casts (Auto) 5-10 /lpf Urine Epithelial Cells (Auto) 5-10 /lpf Urine Bacteria (Auto) NEG White Blood Count 5.54 K/uL 6.44 K/uL Red Blood Count 2.12 M/uL 3.05 M/uL Hemoglobin 6.3 g/dL 9.3 g/dL Hematocrit 18.3 % 26.8 % Mean Corpuscular Volume 86.3 fL 87.9 fL Mean Corpuscular Hemoglobin 29.7 pg 30.5 pg Mean Corpuscular Hemoglobin Concent 34.4 g/dl 34.7 g/dl RDW Standard Deviation 45.2 fL 45.5 fL RDW Coefficient of Variation 15.0 % 14.8 % Platelet Count 30 K/uL 27 K/uL Mean Platelet Volume 11.8 fL 10.9 fL Platelet Estimate SIGNIFIC DECREASED Sodium Level 140 mmol/L Potassium Level 3.8 mmol/L Chloride Level 109 mmol/L Carbon Dioxide Level 24 mmol/L Anion Gap 7.0 mmol/L Blood Urea Nitrogen 9 mg/dl Creatinine 0.71 mg/dl Est Creatinine Clear Calc Drug Dose 81.0 ml/min Estimated GFR () 102.2 Estimated GFR (Non- 88.1 BUN/Creatinine Ratio 12.9 Random Glucose 106 mg/dl Calcium Level 7.6 mg/dl Magnesium Level 1.9 mg/dl Stool Occult Blood NEGATIVE Test 04/19/18 12:00 Assessment & Plan Ms. Andres returns with febrile neutropenia. Her recurrent diarrhea is concerning for relapse of her C diff colitis. PCR for C diff is pending. I agree with broad coverage, including anti-pseudomonals, for now. She has experienced prolonged neutropenia, which is also a risk for opportunistic infections like fungal infections. She has an unconjugated bilirubinemia and had an acute drop in her hemoglobin without obvious hemorrhage. It is possible she was hemoconcentrated when she presented, but CLL can also cause a hemolytic anemia. It is usually a cold- agglutinin anemia and is usually treated by treating the underlying disease. She received some blood yesterday, which would make a KILEY difficult to interpret now. I requested the blood bank run a KILEY on the sample from yesterday , prior to the transfusion.
--- NOTE | 2018-04-19 14:08 | Progress Note ---
Subjective Date of Service: Apr 19, 2018. Subjective Pt evaluation today including: conversation w/ patient, physical exam, chart review, lab review, review of studies, conversation w/ qa consultant, review of inpatient medication list Was spiking up to 38.6 midnight currently doing okay, denies cough sputum, denies dysuria urgency, right chest wall Mediport was removed in previous admission, Problem List Medical Problems: (1) Hypomagnesemia Status: Acute (2) Neutropenic fever Status: Acute (3) Neutropenic fever Status: Acute Review of Systems Constitutional: + weakness, + fatigue, No fever, No chills, No sweats, No weight loss, No problem reported Eyes: No worsening of vision, No eye pain, No redness, No discharge, No diplopia ENT: No hearing loss, No unusual epistaxis, No nasal symptoms, No sore throat, No tinnitus, No dental problems, No trouble swallowing Respiratory: No cough, No sputum, No wheezing, No shortness of breath, No dyspnea on exertion, No dyspnea at rest, No hemoptysis Cardiac: No chest pain, No orthopnea, No PND, No edema, No claudication, No palpitations Abdomen: No pain, No nausea, No vomiting, No diarrhea, No constipation Musculoskeletal: No joint pain, No muscle pain, No swelling, No calf pain Female : No dysuria, No urinary frequency, No hematuria, No incontinence, No abnormal vaginal bleeding, No vaginal discharge Neurologic: No memory loss, No paralysis, No weakness, No numbness/tingling, No vertigo, No balance problems Psychiatric: No depression symptoms, No anhedonism, No anxiety, No insomnia, No substance abuse Heme: No abnormal bleeding/bruising, No clotting problems, No swollen lymph nodes, No night sweats Endo: No fatigue, No excessive thirst, No excessive urination Skin: No rash, No itch, No new/changing skin lesions, No color change, No bleeding Objective Vital Signs Date Time Temp Pulse Resp B/P (MAP) Pulse Ox O2 Delivery O2 Flow Rate FiO2 04/19/18 11:16 36.6 100 16 130/88 (102) 99 04/19/18 08:00 Room Air 04/19/18 06:55 36.7 105 16 132/80 99 04/19/18 06:00 36.7 95 18 136/82 99 04/19/18 05:00 36.6 102 18 132/79 100 04/19/18 04:45 36.5 107 18 117/76 96 04/19/18 04:26 36.5 89 16 111/70 96 04/19/18 03:56 36.7 95 18 125/73 95 04/19/18 02:50 37.3 93 18 115/71 96 04/19/18 02:16 37.3 108 18 129/74 96 04/19/18 01:30 38.6 105 16 136/76 98 04/19/18 01:00 37.4 105 18 139/82 99 04/19/18 00:43 37.3 108 16 136/76 100 04/19/18 00:15 Room Air 04/18/18 22:51 37.2 99 18 137/81 (99) 96 Room Air 04/18/18 18:58 38.9 116 24 141/77 (98) 100 Room Air 04/18/18 16:00 Room Air 04/18/18 14:17 37.9 Physical Exam General Appearance: WD/WN, no apparent distress Eyes: normal inspection, PERRL, EOMI, sclerae normal ENT: normal ENT inspection, hearing grossly normal, pharynx normal Neck: supple, no adenopathy, thyroid normal, no JVD, no carotid bruits, trachea midline Respiratory/Chest: chest non-tender, lungs clear, normal breath sounds, no respiratory distress, no accessory muscle use, + pertinent finding (Right anterior chest wall local looks good no complaint of swelling) Cardiovascular: regular rate, rhythm, no edema, no gallop, no JVD, no murmur Abdomen: normal bowel sounds, non tender, soft, no organomegaly, no pulsatile mass Extremities: normal range of motion, non-tender, normal inspection, no pedal edema, no calf tenderness, normal capillary refill, pelvis stable Neurologic/Psychiatric: 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 tested, no motor/sensory deficits, alert, normal mood/affect, oriented x 3 Skin: normal color, warm/dry, no rash Lymphatic: no adenopathy Laboratory Results Last 24 Hours Test 04/18/18 20:17 04/19/18 07:54 04/19/18 10:30 04/19/18 12:03 White Blood Count 5.54 K/uL 6.44 K/uL Red Blood Count 2.12 M/uL 3.05 M/uL Hemoglobin 6.3 g/dL 9.3 g/dL 9.0 g/dL Hematocrit 18.3 % 26.8 % 25.8 % Mean Corpuscular Volume 86.3 fL 87.9 fL Mean Corpuscular Hemoglobin 29.7 pg 30.5 pg Mean Corpuscular Hemoglobin Concent 34.4 g/dl 34.7 g/dl RDW Standard Deviation 45.2 fL 45.5 fL RDW Coefficient of Variation 15.0 % 14.8 % Platelet Count 30 K/uL 27 K/uL Mean Platelet Volume 11.8 fL 10.9 fL Platelet Estimate SIGNIFIC DECREASED Sodium Level 140 mmol/L Potassium Level 3.8 mmol/L Chloride Level 109 mmol/L Carbon Dioxide Level 24 mmol/L Anion Gap 7.0 mmol/L Blood Urea Nitrogen 9 mg/dl Creatinine 0.71 mg/dl Est Creatinine Clear Calc Drug Dose 81.0 ml/min Estimated GFR () 102.2 Estimated GFR (Non- 88.1 BUN/Creatinine Ratio 12.9 Random Glucose 106 mg/dl Calcium Level 7.6 mg/dl Magnesium Level 1.9 mg/dl Stool Occult Blood NEGATIVE Assessment and Plan 67 y/o F admitted because of FUO/neutropenic fever with cultures (+) for Pseudomonas. She was admitted during March 25 to March 31 because of neutropenic fever, gram negative bacteremia but not sepsis, Prior to admission patient was reported to have nausea, diarrhea and a fever. Labs are notable for pancytopenia. , was receiving Imbruvica prior to January when it was held due to recurrent infection. had acquired C diff during her last admission 03/18. The blood culture on March 27 she was having pseudomonal growth previous admission, however later repeated blood culture was negative Possible neutropenic fever, continue treat empirically for Pseudomonas and C diff owing to recent cultures and her diarrhea. Recent C. difficile checking was negative last admission, patient report to me her diarrhea comes and goes, no diarrhea yesterday, has 2 bowel movements so far today, and today's C. difficile testing results were negative, will stop oral Vanco Pancytopenia is obvious anemia and thrombocytopenia has consult city carrier assistant , and trend labs CLL hx Full code - SCDs Continued [facility] stay due to: multiple IV medications needed Discharge planning: home
[2018-04-19 16:19] LABS: HEMOGLOBIN 8.2 g/dL (12.0-16.0)
[2018-04-19] MEDS: CEFEPIME IV 2,000 MG in SYRINGE 7.5 ML IV SCH (16:23)
[2018-04-19] MEDS ORDERED: CEFEPIME IV 2,000 MG in DEXTROSE 5% 100ML 100 ML IV SCH (22:00)
[2018-04-20] VITALS (7 sets, daily range): BP systolic 120–128; BP diastolic 68–81; PULSE 87–100; TEMP 36.7–37.1; O2SAT 96–100; BMI 31.9
[2018-04-20] MEDS: CEFEPIME IV 2,000 MG in SYRINGE 7.5 ML IV SCH ×2 (00:29→08:16)
[2018-04-20] MEDS: CALCIUM 600MG + VIT D 400 IU TAB PO SCH ×3 (00:31→20:00)
[2018-04-20] MEDS: CYANOCOBALAMIN 500 MCG TAB (VIT B-12) PO SCH (08:16)
[2018-04-20] MEDS: CHOLECALCIFEROL 1000 INTER.UNIT TAB PO SCH (08:16)
[2018-04-20] MEDS ORDERED: NURSING VERBAL MED ORDER ONE ×2 (08:30)
--- NOTE | 2018-04-20 08:46 | HEME/ONC PROGRESS NOTE ---
DATE: 04/20/2018 DIAGNOSES: 1. Neutropenic fever. 2. Hypomagnesemia. 3. Chronic lymphocytic leukemia. 4. Anemia. SUBJECTIVE: Zaira is a pleasant 67-year-old somewhat complex female patient, well known to me, currently under my care for chronic lymphocytic leukemia. Zaira had followed with Dr. Cartagena, [facility] and was recently started on ibrutinib. This resulted in profound pancytopenia for what she is yet to recover. She was previously admitted with a pseudomonal bacteremia and Clostridium difficile colitis. Since admission, stools have been negative for C. diff. Blood cultures I believe are pending. Over the weekend, the patient developed fever in excess of 102, prompting her to seek medical attention. Constitutively, she is asymptomatic at this time. Her fevers have gone down since transfusion of 2 units packed RBCs, the second of which was aborted because of fever. PHYSICAL EXAMINATION: GENERAL: She is in no acute distress. VITAL SIGNS: Temperature 36.7, pulse 96, respiratory rate 20, blood pressure 128/72. SKIN: Without rash or lesion. HEENT: Oral mucosa without erythema or ulceration. HEART: Regular rate and rhythm. LUNGS: Clear to auscultation bilaterally. ABDOMEN: Soft, nontender, nondistended. EXTREMITIES: No clubbing, cyanosis or edema. NEUROLOGICAL: Grossly intact. LABORATORY DATA: Hemoglobin 8.2. Hematocrit 23%. Yesterday's chemistries are as follows: Sodium 140, potassium 3.8, chloride 109, carbon dioxide 24, BUN 9, creatinine 0.71, magnesium 1.9. IMPRESSION: 1. Neutropenic fever. 2. Hypomagnesemia. 3. Pancytopenia. 4. Chronic lymphocytic leukemia. PLAN: Saw Zaira at bedside this morning. Clinically, again she feels well for the most part asymptomatic. Fever has lessened over the weekend. She is currently receiving cefepime 2 grams intravenously. Stools were negative for C. diff. Hopefully, blood cultures were drawn on admission and are pending. The patient had also presented with a profound anemia with no evidence of hemorrhage. We will check hemolysis parameters today. I also will incorporate Neupogen 480 mcg subQ daily while in house until adequate neutrophil recovery. Will continue to follow Zaira throughout her hospital stay. Thank you again for assisting us on the care of this very pleasant but somewhat complex patient.
[2018-04-20 09:55] LABS: HEMATOCRIT 27.2 % (37-47); HEMOGLOBIN 9.4 g/dL (12.0-16.0); MEAN CELL VOLUME 86.9 fL (80-100); MEAN CORPUSCULAR HGB CONC 34.6 g/dl (32-36); MEAN PLATELET VOLUME 11.7 fL (7.4-10.4); PLATELET COUNT 29 K/uL (130-400); RED CELL DISTRIBUTION WIDTH SD 45.3 fL (36.4-46.3); WHITE BLOOD COUNT 5.71 K/uL (4.8-10.8)
--- NOTE | 2018-04-20 10:45 | Progress Note ---
Progress Note Date of Service Apr 20, 2018. Progress Note ID Consult Dictated #[id number] A/P: 1. Neutropenic Fever - afebrile x 48 hours -Continue cefepime for now, recent pseudomonas bsi -Can transition to po levaquin to complete 14 days upon d/c -thank you
[2018-04-20 10:50] LABS: RETIC COUNT % < 0.5 % (0.5-2.0)
[2018-04-20 10:51] LABS: EOS % 0.5 %; EOS ABS # 0.03 K/uL (0-0.5); IG# 0.01 K/uL (0.00-0.02); LYMPH % 78.5 %; LYMPH ABS # 4.48 K/uL (1.2-3.4); MONO % 7.9 %; MONO ABS # 0.45 K/uL (0.11-0.59); NEUT % 12.9 %; NEUT ABS # 0.74 K/uL (1.4-6.5)
[2018-04-20] MEDS: FILGRASTIM 480 MCG/1.6 ML VIAL SQ SCH (10:59)
--- NOTE | 2018-04-20 12:05 | INFECT. DISEASE CONSULTATION ---
DATE OF CONSULTATION: 04/20/2018 HISTORY OF PRESENT ILLNESS: This is a 67-year-old female who has a history of CLL and chronic pancytopenia. She states for the past 4 weeks, she has had significant drop in her blood counts and has received 9 transfusions. She also was recently admitted at the end of March for neutropenic fever and was found to have 1 blood culture positive for pansensitive pseudomonas. She was admitted to the hospital on the secondary to fevers at home. She states overall she is feeling much improved. She was started on cefepime and is tolerating this well. She is also receiving Neupogen. Her white blood cell count most recently was 6.4. Her platelets are down to 27. Her T-max on the was 39.5, on the it was 38.6, and she has otherwise been afebrile. She does have a history of C. diff and chronic diarrhea. C. diff was checked during this admission and was negative. Her urinalysis was negative. No blood cultures were obtained. Her last positive blood culture was 03/24. A chest x-ray was without pneumonia. On my examination, she states she is feeling better. She denies any chest pain, cough, shortness of breath, nausea, vomiting, diarrhea, or abdominal pain. She states her appetite has been poor. She denies any GI bleeding. She has no urinary symptoms. She denies any blood loss at home. She is being followed by hematology as well. She states she had a colonoscopy 1 year ago, which was unremarkable with the exception of polyps, which were removed and benign. Her remaining review of systems is reviewed and negative. PAST MEDICAL HISTORY: Significant for small cell lymphoma, CLL, pancytopenia. PAST SURGICAL HISTORY: Significant for colonoscopy. FAMILY HISTORY: Noncontributory. SOCIAL HISTORY: Negative for tobacco use, alcohol use, or drug use. ALLERGIES: SHE IS ALLERGIC TO AZITHROMYCIN. MEDICATIONS: Neupogen, cefepime, vitamin B12, vitamin D, Caltrate, Tylenol, Maalox, milk of magnesia, MiraLax, Ambien, and Zofran. PHYSICAL EXAMINATION: VITAL SIGNS: She is afebrile, pulse 96, respiratory rate 20, blood pressure 128/72, oxygen saturation is 96% on room air. GENERAL: She is awake, alert, and oriented x3. She is in no acute distress. HEENT: Mucous membranes are moist. Extraocular muscles are intact. HEART: Regular. LUNGS: Clear. ABDOMEN: Soft and nondistended. There is no tenderness. EXTREMITIES: There is no edema. SKIN: Without rash. LABORATORY STUDIES: White blood cell count today 5.7, hemoglobin 9.4, platelets 29, no differential was done. Her most recent ANC on admission was 0.11. Chemistry panel yesterday; sodium 140, potassium 3.8, chloride 109, bicarbonate 24, BUN 9, creatinine 0.7, glucose 106. LFTs are within normal limits. UA was negative. Stool for blood is negative. C. diff is negative. Chest x-ray was unremarkable. ASSESSMENT AND PLAN: Neutropenic fever. She is currently afebrile and tolerating cefepime well. Certainly, if she is to be discharged she could transition to a course of oral Levaquin to complete empiric course as no blood cultures were done on this admission. I would give a total of 14 days. Thank you for this consultation.
--- NOTE | 2018-04-20 14:07 | Progress Note ---
Subjective Date of Service: Apr 20, 2018. Subjective Pt evaluation today including: conversation w/ patient, conversation w/ family (), physical exam, lab review, conversation w/ business analyst consultant, review of inpatient medication list Pain: no pain PO Intake: poor appetite, ongoing issue Voiding: no voiding problems no new complaints today still has loose stools, several times a day, small quantity no fevers since time of admission reviewed labs, Hb up to 9.4, platelets low at 29 and WBC 5k with neutrophils at 0.74 LDH slightly high, bilirubin 1.1 and haptoglobin pending discussed pancytopenia with Dr. Elder, appreciate recommendations discussed fevers with Dr. Thornton, appreciate her recommendation for Levaquin Problem List Medical Problems: (1) Hypomagnesemia Status: Acute (2) Neutropenic fever Status: Acute (3) Neutropenic fever Status: Acute Review of Systems Constitutional: + weight loss, + weakness, + fatigue Abdomen: + diarrhea, + problem reported (poor appetite) All Other Systems: Reviewed and Negative Medications Current Inpatient Medications Medications (Trade) Dose Ordered Sig/Q[place]a Route Start Time Stop Time Status Last Admin Dose Admin Cyanocobalamin (Vitamin B-12 Tab) 500 mcg DAILY PO 04/19/18 08:00 05/19/18 08:59 04/20/18 08:16 500 MCG Cholecalciferol (Vitamin D Tab) 1,000 inter.unit DAILY PO 04/19/18 08:00 05/19/18 08:59 04/20/18 08:16 1,000 INTER.UNIT Calcium/Vitamin D (Caltrate Plus Tab) 1 tab BID PO 04/18/18 20:00 05/18/18 20:59 04/20/18 08:16 1 TAB Acetaminophen (Tylenol Tab) 650 mg Q4H PRN PO 04/18/18 12:00 05/18/18 11:59 04/19/18 01:44 650 MG Al Hydrox/Mg Hydrox/Simethicone (Maalox Max Susp) 15 ml Q4H PRN PO 04/18/18 12:00 05/18/18 11:59 Magnesium Hydroxide (Milk Of Magnesia Susp) 30 ml Q6H PRN PO 04/18/18 12:00 05/18/18 11:59 Polyethylene (Miralax Powder Packet) 17 gm DAILY PRN PO 04/18/18 12:00 05/18/18 11:59 Zolpidem Tartrate (Ambien Tab) 5 mg HSZ PRN PO 04/18/18 12:00 05/18/18 11:59 Ondansetron HCl (Zofran Inj) 4 mg Q6H PRN IV 04/18/18 12:00 05/18/18 11:59 Cefepime HCl 2000 mg/Syringe 20 ml @ 5 mls/min Q8H IV 04/19/18 16:00 04/21/18 15:59 04/20/18 08:16 5 MLS/MIN Filgrastim (Neupogen Sq) 480 mcg DAILY SQ 04/20/18 09:00 05/20/18 08:59 04/20/18 10:59 480 MCG Objective Vital Signs Date Time Temp Pulse Resp B/P (MAP) Pulse Ox O2 Delivery O2 Flow Rate FiO2 04/20/18 11:21 37.1 87 16 128/81 (97) 98 04/20/18 08:30 96 Room Air 04/20/18 07:53 36.7 96 20 128/72 (90) 96 04/20/18 03:52 36.8 96 20 120/68 (85) 98 Room Air 04/19/18 22:55 36.8 87 18 128/78 (95) 99 Room Air 04/19/18 21:08 94 Room Air 04/19/18 19:22 36.8 92 20 111/71 (84) 94 Room Air 04/19/18 16:00 Room Air 04/19/18 15:48 37.1 100 20 134/77 (96) 100 Room Air Physical Exam General Appearance: WD/WN, no apparent distress Eyes: normal inspection, EOMI, sclerae normal ENT: normal ENT inspection, hearing grossly normal, pharynx normal Neck: supple, no adenopathy, no JVD, trachea midline Respiratory/Chest: chest non-tender, lungs clear, normal breath sounds, no respiratory distress, no accessory muscle use Cardiovascular: regular rate, rhythm, no edema, no gallop, no JVD, no murmur Abdomen: normal bowel sounds, non tender, soft, no organomegaly Extremities: normal range of motion, non-tender, normal inspection, no pedal edema, no calf tenderness, pelvis stable 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, no motor/sensory deficits, alert, normal mood/affect, oriented x 3 Skin: normal color, warm/dry, no rash Laboratory Results Last 24 Hours Test 04/19/18 16:11 04/20/18 09:10 Hemoglobin 8.2 g/dL 9.4 g/dL Hematocrit 23.0 % 27.2 % White Blood Count 5.71 K/uL Red Blood Count 3.13 M/uL Mean Corpuscular Volume 86.9 fL Mean Corpuscular Hemoglobin 30.0 pg Mean Corpuscular Hemoglobin Concent 34.6 g/dl Platelet Count 29 K/uL Mean Platelet Volume 11.7 fL Neutrophils (%) (Auto) 12.9 % Lymphocytes (%) (Auto) 78.5 % Monocytes (%) (Auto) 7.9 % Eosinophils (%) (Auto) 0.5 % Basophils (%) (Auto) 0.0 % Neutrophils # (Auto) 0.74 K/uL Lymphocytes # (Auto) 4.48 K/uL Monocytes # (Auto) 0.45 K/uL Eosinophils # (Auto) 0.03 K/uL Basophils # (Auto) 0.00 K/uL RDW Standard Deviation 45.3 fL RDW Coefficient of Variation 15.0 % Immature Granulocyte % (Auto) 0.2 % Immature Granulocyte # (Auto) 0.01 K/uL Smudge Cells PRESENT Absolute Reticulocyte Count < 0.02 10^6/uL Percent Reticulocyte Count < 0.5 % Total Bilirubin 1.1 mg/dl Lactate Dehydrogenase 316 U/L Assessment and Plan 67 y/o F admitted because of FUO/neutropenic fever with cultures (+) for Pseudomonas. She was admitted during March 25 to March 31 because of neutropenic fever, gram negative bacteremia but not sepsis, blood culture from that admission grew Pseudomonas - Pancytopenia: hb up to 9.4, platelets 29 and neutrophils still low at 0.[address] Elder hemolysis work up ordered, haptoglobin pending but bili only up slightly at 1.1, LDH up slightly platelets always low, stable received Neupogen today, will be ordered per Dr. Elder repeat CBC in the morning - Neutropenic fever: treated with Cefepime for prophylaxis had recent h/o Pseudomonas bacteremia blood cultures not done at time of admission, now too late to perform C diff negative per ID, would give Levaquin x 14 days to cover possible Pseudomonas bacteremia since it cannot be negated - CLL: was receiving Imbruvica in recent past but stopped due to recurrent infections WBC 5k but lymphocytes high - Diarrhea, weigh loss ongoing issue, moderate malnutrition dietary supplements ordered full code, SCD due to thrombocytopenia Continued [facility] stay due to: multiple IV medications needed Discharge planning: home
[2018-04-20] MEDS: LEVOFLOXACIN 750 MG TAB PO SCH (17:01)
[2018-04-21 04:00] VITALS: BP 99/65; PULSE 86; TEMP 36.6; O2SAT 97
[2018-04-21 07:16] VITALS: BMI 31.8
[2018-04-21 07:34] LABS: HEMATOCRIT 22.5 % (37-47); HEMOGLOBIN 7.7 g/dL (12.0-16.0); MEAN CELL VOLUME 86.5 fL (80-100); MEAN CORPUSCULAR HEMOGLOBIN 29.6 pg (25-34); MEAN CORPUSCULAR HGB CONC 34.2 g/dl (32-36); PLATELET COUNT 22 K/uL (130-400); RED CELL DISTRIBUTION WIDTH CV 15.3 % (11.5-14.5); RED CELL DISTRIBUTION WIDTH SD 46.2 fL (36.4-46.3); WHITE BLOOD COUNT 4.08 K/uL (4.8-10.8)
[2018-04-21 07:36] VITALS: BP 140/71; PULSE 89; TEMP 36.5; O2SAT 97
[2018-04-21 07:59] LABS: ALBUMIN 2.5 gm/dl (3.4-5.0); CALCIUM 7.9 mg/dl (8.5-10.1); CREATININE 0.66 mg/dl (0.60-1.20); POTASSIUM 4.1 mmol/L (3.5-5.1); TOTAL PROTEIN 5.2 gm/dl (6.4-8.2)
[2018-04-21] MEDS: CALCIUM 600MG + VIT D 400 IU TAB PO SCH ×2 (08:12→20:23)
[2018-04-21] MEDS: CYANOCOBALAMIN 500 MCG TAB (VIT B-12) PO SCH (08:12)
[2018-04-21] MEDS: FILGRASTIM 480 MCG/1.6 ML VIAL SQ SCH (08:12)
[2018-04-21] MEDS: CHOLECALCIFEROL 1000 INTER.UNIT TAB PO SCH (08:12)
[2018-04-21 08:37] LABS: EOS % 0.2 %; EOS ABS # 0.01 K/uL (0-0.5); IG# 0.01 K/uL (0.00-0.02); LYMPH % 77.2 %; LYMPH ABS # 3.15 K/uL (1.2-3.4); MONO % 8.1 %; MONO ABS # 0.33 K/uL (0.11-0.59); NEUT % 14.3 %; NEUT ABS # 0.58 K/uL (1.4-6.5)
[2018-04-21] MEDS ORDERED: NURSING VERBAL MED ORDER ONE (09:00)
--- NOTE | 2018-04-21 09:17 | HEME/ONC PROGRESS NOTE ---
DATE: 04/21/2018 This is a hematology progress note. DIAGNOSES: 1. Neutropenic fever. 2. Hypomagnesemia. 3. Hypo-reticulocytosis. 4. Chronic lymphocytic leukemia. SUBJECTIVE: Zaira was seen at bedside this morning. Again, she is currently under my care with the diagnosis of chronic lymphocytic leukemia in relapse. Dr. Ty, [facility] had recently started Zaira on ibrutinib, which resulted in profound pancytopenia. Since discontinuance, she has developed pseudomonal bacteremia as well as Clostridium difficile colitis. She was effectively treated then represented recently with a fever in excess of 102. Thus far, only stools have been checked, negative for C. diff colitis. She is receiving empiric cefepime. Zaira continues to demonstrate intractable pancytopenia. She was treated with Neupogen yesterday and will administer Procrit today. 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 PHYSICAL EXAMINATION: GENERAL: She is in no acute distress. VITAL SIGNS: Temperature 36.5, pulse 89, respiratory rate 20, blood pressure 140/71. SKIN: Without rash or lesion. HEENT: Oral mucosa without erythema or ulceration. NECK: Supple. HEART: Regular rate and rhythm. LUNGS: Clear to auscultation. ABDOMEN: Soft, nontender, nondistended. EXTREMITIES: No clubbing, cyanosis or edema. NEUROLOGIC: Grossly intact. LABORATORY DATA: WBC count 4080 and absolute neutrophil count of 580, hemoglobin 7.7, platelet count 22,000. Chemistries 141, potassium 4.1, chloride 110, carbon dioxide 26, creatinine 0.66, BUN 12, albumin 2.5. IMPRESSION: 1. Neutropenic fever. 2. Hypomagnesemia. 3. Pancytopenia. 4. Chronic lymphocytic leukemia. 5. Hypo-reticulocytosis. PLAN: 1. Zaira again was seen and examined at bedside. Clinically, she continues to feel well; however, her peripheral blood counts have remained refractory. She received Neupogen yesterday resulting in a decrease in her ANC. She has had no further fevers since admission. Her platelet count and hemoglobin especially have been refractory to transfusion. 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 Her bone marrow biopsy performed at [facility] revealed 80% cellularity; however, we would still expect some hematopoiesis. She has been off ibrutinib for about 3 weeks now. May need to consider immune modulating therapy, particularly ATG. We will continue to follow her daily. Thank you for assisting me in the care of this very pleasant patient.
[2018-04-21] MEDS ORDERED: EPOETIN ALFA 40,000 UNITS/ML VIAL SC ONE (09:30)
[2018-04-21] MEDS: LEVOFLOXACIN 750 MG TAB PO SCH (10:46)
[2018-04-21 11:37] VITALS: BP 112/72; PULSE 88; TEMP 36.7; O2SAT 97
[2018-04-21 15:00] VITALS: BP 118/64; PULSE 91; TEMP 36.5; O2SAT 99
--- NOTE | 2018-04-21 15:39 | Progress Note ---
Subjective Date of Service: Apr 21, 2018. Subjective Pt evaluation today including: conversation w/ patient, physical exam, lab review, conversation w/ consultant education, review of inpatient medication list Pain: no pain PO Intake: eating 50% of meals Voiding: no voiding problems patient sitting in chair, no distress, looking at iPad no new complaints, no fever reviewed labs, neutrophils lower today, Hb 7.7 and platelets [address] Elder, patient not showing signs of hematopoesis may consider immune modulating therapy like ATG patient understands that she has to remain hospitalized due to counts Problem List Medical Problems: (1) Hypomagnesemia Status: Acute (2) Neutropenic fever Status: Acute (3) Neutropenic fever Status: Acute Review of Systems Constitutional: + weight loss Abdomen: + problem reported (poor appetite) Neurologic: + weakness All Other Systems: Reviewed and Negative Medications Current Inpatient Medications Medications (Trade) Dose Ordered Sig/Quita Route Start Time Stop Time Status Last Admin Dose Admin Cyanocobalamin (Vitamin B-12 Tab) 500 mcg DAILY PO 04/19/18 08:00 05/19/18 08:59 04/21/18 08:12 500 MCG Cholecalciferol (Vitamin D Tab) 1,000 inter.unit DAILY PO 04/19/18 08:00 05/19/18 08:59 04/21/18 08:12 1,000 INTER.UNIT Calcium/Vitamin D (Caltrate Plus Tab) 1 tab BID PO 04/18/18 20:00 05/18/18 20:59 04/21/18 08:12 1 TAB Acetaminophen (Tylenol Tab) 650 mg Q4H PRN PO 04/18/18 12:00 05/18/18 11:59 04/19/18 01:44 650 MG Al Hydrox/Mg Hydrox/Simethicone (Maalox Max Susp) 15 ml Q4H PRN PO 04/18/18 12:00 05/18/18 11:59 Magnesium Hydroxide (Milk Of Magnesia Susp) 30 ml Q6H PRN PO 04/18/18 12:00 05/18/18 11:59 Polyethylene (Miralax Powder Packet) 17 gm DAILY PRN PO 04/18/18 12:00 05/18/18 11:59 Zolpidem Tartrate (Ambien Tab) 5 mg HSZ PRN PO 04/18/18 12:00 05/18/18 11:59 Ondansetron HCl (Zofran Inj) 4 mg Q6H PRN IV 04/18/18 12:00 05/18/18 11:59 Filgrastim (Neupogen Sq) 480 mcg DAILY SQ 04/20/18 09:00 05/20/18 08:59 04/21/18 08:12 480 MCG Levofloxacin (Levaquin Tab) 750 mg DAILY@11 PO 04/20/18 16:00 04/22/18 15:59 04/21/18 10:46 750 MG Objective Vital Signs Date Time Temp Pulse Resp B/P (MAP) Pulse Ox O2 Delivery O2 Flow Rate FiO2 04/21/18 15:00 36.5 91 20 118/64 (82) 99 Room Air 04/21/18 11:37 36.7 88 20 112/72 (85) 97 Room Air 04/21/18 08:00 Room Air 04/21/18 07:36 36.5 89 20 140/71 (94) 97 Room Air 04/21/18 04:00 36.6 86 18 99/65 (76) 97 Room Air 04/21/18 01:00 Room Air 04/20/18 23:09 36.7 100 18 120/73 (89) 98 Room Air 04/20/18 19:56 36.7 97 18 120/75 (90) 97 Room Air 04/20/18 15:58 Room Air 04/20/18 15:49 36.7 96 18 123/76 (92) 100 Room Air Physical Exam General Appearance: WD/WN, no apparent distress Eyes: normal inspection, EOMI, sclerae normal ENT: normal ENT inspection, hearing grossly normal, pharynx normal Neck: supple, no adenopathy, no JVD, trachea midline Respiratory/Chest: chest non-tender, lungs clear, normal breath sounds, no respiratory distress, no accessory muscle use Cardiovascular: regular rate, rhythm, no edema, no gallop, no JVD, no murmur Abdomen: normal bowel sounds, non tender, soft, no organomegaly Extremities: normal range of motion, non-tender, normal inspection, no pedal edema, no calf tenderness, pelvis stable 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, no motor/sensory deficits, alert, normal mood/affect, oriented x 3 Laboratory Results Last 24 Hours Test 04/21/18 07:14 White Blood Count 4.08 K/uL Red Blood Count 2.60 M/uL Hemoglobin 7.7 g/dL Hematocrit 22.5 % Mean Corpuscular Volume 86.5 fL Mean Corpuscular Hemoglobin 29.6 pg Mean Corpuscular Hemoglobin Concent 34.2 g/dl Platelet Count 22 K/uL Mean Platelet Volume 11.0 fL Neutrophils (%) (Auto) 14.3 % Lymphocytes (%) (Auto) 77.2 % Monocytes (%) (Auto) 8.1 % Eosinophils (%) (Auto) 0.2 % Basophils (%) (Auto) 0.0 % Neutrophils # (Auto) 0.58 K/uL Lymphocytes # (Auto) 3.15 K/uL Monocytes # (Auto) 0.33 K/uL Eosinophils # (Auto) 0.01 K/uL Basophils # (Auto) 0.00 K/uL RDW Standard Deviation 46.2 fL RDW Coefficient of Variation 15.3 % Immature Granulocyte % (Auto) 0.2 % Immature Granulocyte # (Auto) 0.01 K/uL Dohle Bodies 2+ Giant Platelets 3+ Ovalocytes 1+ Sodium Level 141 mmol/L Potassium Level 4.1 mmol/L Chloride Level 110 mmol/L Carbon Dioxide Level 26 mmol/L Anion Gap 6.0 mmol/L Blood Urea Nitrogen 12 mg/dl Creatinine 0.66 mg/dl Est Creatinine Clear Calc Drug Dose 86.8 ml/min Estimated GFR () 105.9 Estimated GFR (Non- 91.4 BUN/Creatinine Ratio 17.7 Random Glucose 91 mg/dl Calcium Level 7.9 mg/dl Total Bilirubin 1.4 mg/dl Direct Bilirubin 0.4 mg/dl Aspartate Amino Transf (AST/SGOT) 17 U/L Alanine Aminotransferase (ALT/SGPT) 13 U/L Alkaline Phosphatase 155 U/L Total Protein 5.2 gm/dl Albumin 2.5 gm/dl Assessment and Plan 67 y/o F admitted because of FUO/neutropenic fever with cultures (+) for Pseudomonas. She was admitted during March 25 to March 31 because of neutropenic fever, gram negative bacteremia but not sepsis, blood culture from that admission grew Pseudomonas - Pancytopenia: hb down to 7.7, platelets 22 and neutrophils still low at 0.5 despite Neupogen appreciate assistance from Dr. Elder not showing signs of hematopoesis, may have a red cell aplasia or developing aplastic anemia may consider immune modulating therapy like ATG repeat CBC in the morning - Neutropenic fever: treated with Cefepime for prophylaxis had recent h/o Pseudomonas bacteremia blood cultures not done at time of admission, now too late to perform C diff negative per ID, would give Levaquin x 14 days to cover possible Pseudomonas bacteremia since it cannot be negated no fevers since admission - CLL: was receiving Imbruvica in recent past but stopped due to recurrent infections WBC 4k but lymphocytes high - Diarrhea, weigh loss ongoing issue, moderate malnutrition dietary supplements ordered full code, SCD due to thrombocytopenia Continued [facility] stay due to: multiple IV medications needed Discharge planning: home
[2018-04-21 19:56] VITALS: BP 135/79; PULSE 100; TEMP 36.9; O2SAT 99
[2018-04-21] MEDS: ZOLPIDEM TARTRATE 5 MG TAB PO PRN (23:07)
[2018-04-21 23:36] VITALS: BP 114/72; PULSE 87; TEMP 36.7; O2SAT 99
[2018-04-22 04:08] VITALS: BP 139/75; PULSE 92; TEMP 36.4; O2SAT 98
[2018-04-22 07:07] VITALS: BMI 32.0
[2018-04-22 07:13] VITALS: BP 126/62; PULSE 85; TEMP 36.4; O2SAT 97
[2018-04-22] MEDS: CALCIUM 600MG + VIT D 400 IU TAB PO SCH ×2 (07:43→20:26)
[2018-04-22] MEDS: CYANOCOBALAMIN 500 MCG TAB (VIT B-12) PO SCH (07:43)
[2018-04-22] MEDS: CHOLECALCIFEROL 1000 INTER.UNIT TAB PO SCH (07:43)
[2018-04-22 08:32] LABS: HEMATOCRIT 23.1 % (37-47); HEMOGLOBIN 8.1 g/dL (12.0-16.0); MEAN CELL VOLUME 87.2 fL (80-100); MEAN CORPUSCULAR HEMOGLOBIN 30.6 pg (25-34); MEAN CORPUSCULAR HGB CONC 35.1 g/dl (32-36); MEAN PLATELET VOLUME 12.1 fL (7.4-10.4); PLATELET COUNT 23 K/uL (130-400); RED CELL DISTRIBUTION WIDTH CV 15.2 % (11.5-14.5); RED CELL DISTRIBUTION WIDTH SD 46.2 fL (36.4-46.3)
[2018-04-22 09:03] LABS: BASO % 0.2 %; BASO ABS # 0.01 K/uL (0-0.2); EOS % 0.6 %; EOS ABS # 0.03 K/uL (0-0.5); IG# 0.15 K/uL (0.00-0.02); LYMPH % 81.1 %; MONO % 4.9 %; MONO ABS # 0.26 K/uL (0.11-0.59); NEUT % 10.4 %; NEUT ABS # 0.55 K/uL (1.4-6.5)
[2018-04-22] MEDS: FILGRASTIM 480 MCG/1.6 ML VIAL SQ SCH (09:26)
[2018-04-22 10:59] VITALS: BP 137/62; PULSE 81; TEMP 36.6; O2SAT 99
[2018-04-22] MEDS: LEVOFLOXACIN 750 MG TAB PO SCH (11:07)
--- NOTE | 2018-04-22 15:08 | Progress Note ---
Subjective Date of Service: Apr 22, 2018. Subjective Pt evaluation today including: conversation w/ patient, physical exam, lab review, conversation w/ data virtualization consultant, review of inpatient medication list Pain: no pain PO Intake: adequate Voiding: no voiding problems no new issues said she ate too much last night, felt uneasy and nauseated, ate less this morning going to try to drink supplements at home reviewed labs, Hb up to 8.1, platelets 23 and neutrophils 550 received Neupogen and Procrit yesterday, more Neupogen today Problem List Medical Problems: (1) Hypomagnesemia Status: Acute (2) Neutropenic fever Status: Acute (3) Neutropenic fever Status: Acute Review of Systems Abdomen: + problem reported (poor appetite, ongoing) All Other Systems: Reviewed and Negative Medications Current Inpatient Medications Medications (Trade) Dose Ordered Sig/Quita Route Start Time Stop Time Status Last Admin Dose Admin Cyanocobalamin (Vitamin B-12 Tab) 500 mcg DAILY PO 04/19/18 08:00 05/19/18 08:59 04/22/18 07:43 500 MCG Cholecalciferol (Vitamin D Tab) 1,000 inter.unit DAILY PO 04/19/18 08:00 05/19/18 08:59 04/22/18 07:43 1,000 INTER.UNIT Calcium/Vitamin D (Caltrate Plus Tab) 1 tab BID PO 04/18/18 20:00 05/18/18 20:59 04/22/18 07:43 1 TAB Acetaminophen (Tylenol Tab) 650 mg Q4H PRN PO 04/18/18 12:00 05/18/18 11:59 04/19/18 01:44 650 MG Al Hydrox/Mg Hydrox/Simethicone (Maalox Max Susp) 15 ml Q4H PRN PO 04/18/18 12:00 05/18/18 11:59 Magnesium Hydroxide (Milk Of Magnesia Susp) 30 ml Q6H PRN PO 04/18/18 12:00 05/18/18 11:59 Polyethylene (Miralax Powder Packet) 17 gm DAILY PRN PO 04/18/18 12:00 05/18/18 11:59 Zolpidem Tartrate (Ambien Tab) 5 mg HSZ PRN PO 04/18/18 12:00 05/18/18 11:59 04/21/18 23:07 5 MG Ondansetron HCl (Zofran Inj) 4 mg Q6H PRN IV 04/18/18 12:00 05/18/18 11:59 Filgrastim (Neupogen Sq) 480 mcg DAILY SQ 04/20/18 09:00 05/20/18 08:59 04/22/18 09:26 480 MCG Levofloxacin (Levaquin Tab) 750 mg DAILY@11 PO 04/20/18 16:00 05/04/18 16:01 04/22/18 11:07 750 MG Objective Vital Signs Date Time Temp Pulse Resp B/P (MAP) Pulse Ox O2 Delivery O2 Flow Rate FiO2 04/22/18 10:59 36.6 81 18 137/62 (87) 99 04/22/18 08:10 Room Air 04/22/18 07:13 36.4 85 20 126/62 (83) 97 Room Air 04/22/18 04:08 36.4 92 18 139/75 (96) 98 Room Air 04/22/18 00:20 Room Air 04/21/18 23:36 36.7 87 18 114/72 (86) 99 Room Air 04/21/18 19:56 36.9 100 18 135/79 (97) 99 Room Air 04/21/18 16:00 Room Air Physical Exam General Appearance: WD/WN, no apparent distress Eyes: normal inspection, EOMI, sclerae normal ENT: normal ENT inspection, hearing grossly normal, pharynx normal Neck: supple, no adenopathy, no JVD, trachea midline Respiratory/Chest: chest non-tender, lungs clear, normal breath sounds, no respiratory distress, no accessory muscle use Cardiovascular: regular rate, rhythm, no edema, no gallop, no JVD, no murmur Abdomen: normal bowel sounds, non tender, soft, no organomegaly Extremities: normal range of motion, non-tender, normal inspection, no pedal edema, no calf tenderness, pelvis stable 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, no motor/sensory deficits, alert, normal mood/affect, oriented x 3 Skin: normal color, warm/dry, no rash Laboratory Results Last 24 Hours Test 04/22/18 07:51 White Blood Count 5.30 K/uL Red Blood Count 2.65 M/uL Hemoglobin 8.1 g/dL Hematocrit 23.1 % Mean Corpuscular Volume 87.2 fL Mean Corpuscular Hemoglobin 30.6 pg Mean Corpuscular Hemoglobin Concent 35.1 g/dl Platelet Count 23 K/uL Mean Platelet Volume 12.1 fL Neutrophils (%) (Auto) 10.4 % Lymphocytes (%) (Auto) 81.1 % Monocytes (%) (Auto) 4.9 % Eosinophils (%) (Auto) 0.6 % Basophils (%) (Auto) 0.2 % Neutrophils # (Auto) 0.55 K/uL Lymphocytes # (Auto) 4.30 K/uL Monocytes # (Auto) 0.26 K/uL Eosinophils # (Auto) 0.03 K/uL Basophils # (Auto) 0.01 K/uL RDW Standard Deviation 46.2 fL RDW Coefficient of Variation 15.2 % Immature Granulocyte % (Auto) 2.8 % Immature Granulocyte # (Auto) 0.15 K/uL Dohle Bodies 2+ Assessment and Plan 67 y/o F admitted because of FUO/neutropenic fever with cultures (+) for Pseudomonas. She was admitted during March 25 to March 31 because of neutropenic fever, gram negative bacteremia but not sepsis, blood culture from that admission grew Pseudomonas - Pancytopenia: hb up to 8.1, platelets 23 and neutrophils still low at 550 despite Neupogen, they were 580 yesterday appreciate assistance from Dr. 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 or developing aplastic anemia may consider immune modulating therapy like ATG repeat CBC in the morning - Neutropenic fever: treated with Cefepime for prophylaxis had recent h/o Pseudomonas bacteremia blood cultures not done at time of admission, now too late to perform C diff negative per ID, would give Levaquin x 14 days to cover possible Pseudomonas bacteremia since it cannot be negated no fevers since admission - CLL: was receiving Imbruvica in recent past but stopped due to recurrent infections WBC 5k but lymphocytes high - Diarrhea, weigh loss ongoing issue, moderate malnutrition dietary supplements ordered full code, SCD due to thrombocytopenia Continued [facility] stay due to: multiple IV medications needed Discharge planning: home
[2018-04-22 15:33] VITALS: BP 123/78; PULSE 77; TEMP 36.8; O2SAT 99
[2018-04-22 19:00] VITALS: BP 127/85; PULSE 94; TEMP 36.7; O2SAT 99
[2018-04-22] MEDS: ZOLPIDEM TARTRATE 5 MG TAB PO PRN (22:33)
[2018-04-23] VITALS: O2SAT 99
[2018-04-23 00:16] VITALS: BP 128/79; PULSE 87; TEMP 36.5; O2SAT 98
[2018-04-23 04:05] VITALS: BP 136/79; PULSE 88; TEMP 36.4; O2SAT 100
[2018-04-23 06:27] VITALS: Ht 162.6 cm; Wt 84.7 kg
[2018-04-23 07:19] VITALS: BP 117/74; PULSE 83; TEMP 36.4; O2SAT 97
[2018-04-23 07:25] LABS: HEMATOCRIT 21.7 % (37-47); HEMOGLOBIN 7.5 g/dL (12.0-16.0); MEAN CELL VOLUME 87.9 fL (80-100); MEAN CORPUSCULAR HEMOGLOBIN 30.4 pg (25-34); MEAN CORPUSCULAR HGB CONC 34.6 g/dl (32-36); RED CELL DISTRIBUTION WIDTH CV 15.1 % (11.5-14.5); RED CELL DISTRIBUTION WIDTH SD 46.7 fL (36.4-46.3); WHITE BLOOD COUNT 5.53 K/uL (4.8-10.8)
[2018-04-23 07:26] LABS: MEAN PLATELET VOLUME 12.4 fL (7.4-10.4); PLATELET COUNT 19 K/uL (130-400)
[2018-04-23 07:52] LABS: EOS % 0.7 %; EOS ABS # 0.04 K/uL (0-0.5); IG# 0.03 K/uL (0.00-0.02); LYMPH % 85.7 %; LYMPH ABS # 4.74 K/uL (1.2-3.4); MONO % 0.4 %; MONO ABS # 0.02 K/uL (0.11-0.59); NEUT % 12.7 %
[2018-04-23] MEDS: CALCIUM 600MG + VIT D 400 IU TAB PO SCH (08:04)
[2018-04-23] MEDS: CYANOCOBALAMIN 500 MCG TAB (VIT B-12) PO SCH (08:04)
[2018-04-23] MEDS: CHOLECALCIFEROL 1000 INTER.UNIT TAB PO SCH (08:04)
[2018-04-23] MEDS: FILGRASTIM 480 MCG/1.6 ML VIAL SQ SCH (08:05)
--- NOTE | 2018-04-23 09:02 | HEME/ONC PROGRESS NOTE ---
DATE: 04/23/2018 HEMATOLOGY PROGRESS NOTE DIAGNOSES: 1. Neutropenic fever. 2. Electrolyte dysfunction. 3. Chronic lymphocytic leukemia. 4. Refractory pancytopenia. SUBJECTIVE: Zaira was seen at bedside this morning; again, currently doing relatively well, has been without fever; however, despite support with granulocyte-colony stimulating growth factor and transfusion of both platelets and RBCs, her counts continue to falter. Her reticulocyte count also remains low. Again, clinically she feels well, is tolerating her diet. However, on prior admission developed a pseudomonal bacteremia and Clostridium difficile colitis. Her absolute neutrophil count remains around 700 and platelet count presently 19,000. PHYSICAL EXAMINATION: GENERAL: She is in no acute distress. VITAL SIGNS: Temperature 36.4, pulse 83, respiratory rate 20, blood pressure 117/74. SKIN: Warm, dry without rash or lesion. HEENT: Oral mucosa without erythema or ulceration. NECK: Supple. HEART: Regular rate and rhythm. LUNGS: Clear to auscultation bilaterally. ABDOMEN: Soft, nontender, nondistended. EXTREMITIES: No clubbing, cyanosis or edema. NEUROLOGIC: Grossly intact. LABORATORY DATA: WBC count 5530, hemoglobin 7.5, platelet count 19,000. Absolute neutrophil count 7000, lymphocyte fraction 4740. Chemistries last performed on 04/21/2018, sodium 141, potassium 4.1, chloride 110, carbon dioxide 26, creatinine 0.66, BUN 12, total bilirubin 1.4, albumin 2.5. IMPRESSION: 1. Refractory pancytopenia. 2. Neutropenic fever. 3. Electrolyte dysfunction. 4. Chronic lymphocytic leukemia. 5. Hypoalbuminemia. PLAN: Zaira was seen and examined at bedside. Surprisingly, she has done very well from a clinical perspective. Thus far, she has had no further fever; however, continues to receive gram negative coverage. Despite supporting her counts they continue to falter. She has been off ibrutinib for close to a month now with no viable recovery. Bone marrow biopsy done a couple months prior revealed a total cellularity of 80% consistent with relapsed CLL. Conceivably disease progression, particularly infiltration of the marrow may be the underlying cause. Nonetheless, I believe moving forward with salvage therapy would be very risky and Zaira should be treated in a tertiary facility to provide maximal support. I spoke to Dr. Erick Tate, air quality instrument specialist, [facility] in [place] and has agreed to take Zaira in transfer. JACKIE
[2018-04-23 10:13] VITALS: BP 117/74; PULSE 83; TEMP 36.4; O2SAT 97
[2018-04-23] MEDS: LEVOFLOXACIN 750 MG TAB PO SCH (10:38)
[2018-04-23] MEDS ORDERED: LVQ750 PO (11:50)
--- NOTE | 2018-04-23 11:52 | Discharge Instructions ---
Discharge Instructions Date of Service Apr 23, 2018. Admission Reason for Admission: Neutropenic Fever,Pancytopenia Discharge Discharge Diagnosis / Problem: Pancytopenia, neutropenic fever Discharge Goals Goal(s): Diagnostic testing, Therapeutic intervention Activity Recommendations Activity Limitations: per Instructions/Follow-up section Lifting Limitations: none Exercise/Sports Limitations: none Shower/Bathe: no limitations . Instructions / Follow-Up Instructions / Follow-Up transfer to [facility] Current Hospital Diet Patient's current hospital diet: Regular Diet Discharge Diet Recommended Diet: Regular Diet Pending Studies Studies pending at discharge: no Medical Emergencies . Who to Call and When: Medical Emergencies: If at any time you feel your situation is an emergency, please call 911 immediately. . Non-Emergent Contact Non-Emergency issues call your: Primary Care Provider Call Non-Emergent contact if: you have a fever, you have any medication questions . . "Provider Documentation" section prepared by Amrit Bustillo. . [place] Drug Monitoring Program Search Results: no issues identified
[2018-04-23 12:04] VITALS: BP 116/71; PULSE 85; TEMP 36.7; O2SAT 99
--- NOTE | 2018-04-23 12:15 | Discharge Summary ---
Discharge Summary Date of Service Apr 23, 2018. Discharge Summary Admission Date: Apr 18, 2018 at 12:01 Discharge Date: Apr 23, 2018 Discharge Disposition: Acute care facility Principal Diagnosis: Pancytopenia Problems/Secondary Diagnoses: Neutropenic fever CLL Poor appetite h/o Pseudomonas bacteremia Immunizations: Have You Had Influenza Vaccine: Unknown History of Tetanus Vaccine?: Unknown History of Pneumococcal: Unknown History of Hepatitis B Vaccine: Unknown Procedures: none Consultations: Oncology Medication Reconciliation New Medications: Levofloxacin (Levofloxacin) 750 Mg Tab 750 MG PO DAILY@11, #14 TAB 0 Refills Continued Medications: Cholecalciferol (Vitamin D-3) 1,000 Unit Tab 500 MG PO DAILY Cyanocobalamin (B-12) 500 Mcg Tab 500 MCG PO DAILY Multivitamin (Multivitamin) Tab 1 TAB PO DAILY, TAB Discharge Exam Patient feeling fine, no fevers. Trying to eat more but not successful. Discussed with Dr. Elder, recommends transfer to [facility]. Patient and in agreement. Review of Systems: Constitutional: No fever, No chills, No sweats, No weight loss, No weakness , No fatigue, No problem reported Eyes: No worsening of vision, No eye pain, No redness, No discharge, No diplopia, No problem reported ENT: No hearing loss, No unusual epistaxis, No nasal symptoms, No sore throat, No tinnitus, No dental problems, No trouble swallowing, No problem reported Respiratory: No cough, No sputum, No wheezing, No shortness of breath, No dyspnea on exertion, No dyspnea at rest, No hemoptysis, No problem reported Cardiovascular: No chest pain, No orthopnea, No PND, No edema, No claudication, No palpitations, No problem reported Abdomen: + problem reported (poor appetite), No pain, No nausea, No vomiting , No diarrhea, No constipation, No GI bleeding Musculoskeletal: No joint pain, No muscle pain, No swelling, No calf pain, No problem reported Genitourinary - Female: No dysuria, No urinary frequency, No urinary urgency , No urinary incontinence, No urinary retention, No hematuria Neurologic: No memory loss, No paralysis, No weakness, No numbness/tingling , No vertigo, No balance problems, No problem reported Psychiatric: No depression symptoms, No anhedonism, No anxiety, No insomnia , No substance abuse, No problem reported Endocrine: No fatigue, No excessive thirst, No excessive urination, No problem reported Hematologic / Lymphatic: No abnormal bleeding/bruising, No clotting problems , No swollen lymph nodes, No night sweats, No problem reported Integumentary: No rash, No itch, No new/changing skin lesions, No color change, No bleeding, No problem reported Physical Exam: General Appearance: WD/WN, no apparent distress Eyes: normal inspection, EOMI, sclerae normal ENT: normal ENT inspection, hearing grossly normal, pharynx normal Neck: supple, no adenopathy, no JVD, trachea midline Respiratory/Chest: chest non-tender, lungs clear, normal breath sounds, no respiratory distress, no accessory muscle use Cardiovascular: regular rate, rhythm, no edema, no gallop, no JVD, no murmur , normal peripheral pulses Abdomen / GI: normal bowel sounds, non tender, soft, no organomegaly Extremities: normal inspection, no calf tenderness, normal capillary refill , no pedal edema, normal range of motion, pelvis stable 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 She was admitted during March 25 to March 31 because of neutropenic fever, gram negative bacteremia but not sepsis, blood culture from that admission grew Pseudomonas - Pancytopenia: hb 7.7, platelets 19 and neutrophils still low at 700 despite Neupogen x 3 doses appreciate assistance from Dr. 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 or developing aplastic anemia going to [facility] today - Neutropenic fever: treated initially with Cefepime for prophylaxis had recent h/o Pseudomonas bacteremia blood cultures not done at time of admission, now too late to perform C diff negative per ID, would give Levaquin x 14 days to cover possible Pseudomonas bacteremia since it cannot be negated no fevers since admission today is day 4 of antibiotics - CLL: was receiving Imbruvica in recent past but stopped due to recurrent infections WBC 5k but lymphocytes high transfer to [facility] - Diarrhea, weigh loss ongoing issue, moderate malnutrition dietary supplements ordered full code, SCD due to thrombocytopenia Total Time Spent: Greater than 30 minutes This includes examination of the patient, discharge planning, medication reconciliation, and communication with other providers. Discharge Instructions Please refer to the electronic Patient Visit Report (Discharge Instructions) for additional information. Follow-Up [facility] Additional Copies To Parisa Black M.D.; Heron Elder D.O.
--- NOTE | 2018-04-27 17:54 | EDITING REQUIRED CODING QUERY ---
CODING QUERY To promote full compliance with coding requirements relating to patient care, provider participation is requested in all cases of art objects salesperson uncertainty. Please assist us with the question(s) below: Coding Question(s): Please specify below, in your clinical opinion regarding the source of the Neutropenic Fever. ( ) Neutropenic Fever likely due to infection ( ) Neutropenic Fever likely due to Other: Specify (x ) Neutropenic fever with unknown likely source Physician's Response(s): Thank you Sumi Gutierrez Principal Diagnosis: "_that condition established after study, to be chiefly responsible for occasioning the admission of the patient to the hospital for care." Co-Existing Principal Diagnosis: "_when two or more diagnoses equally meet the criteria for principal diagnosis as determined by the circumstances of admission, diagnostic work up, and/or therapy provided, and the Alphabetic Index, Tabular List, or another coding guideline does not provide sequencing direction, any one of the diagnoses may be sequenced first." "When the physician has documented what appears to be a current diagnosis in the body of the record, but has not included the diagnosis in the final diagnostic statement, the physician should be asked whether the diagnosis should be added." (Source Coding [facility] 2 QTR90. p3-4)
== END 2018-04-23 12:06 | disposition short-term general hospital (02) | DRG 808 ==
LOC: C.EDB 09:25 → C.4E 12:01 → ENRESERV 12:21
PROVIDERS: ADMIT Internal Medicine; ATTEND Hospitalist
DX: D70.9 Neutropenia, unspecified (principal); D60.9 Acquired pure red cell aplasia, unspecified; D61.1 Drug-induced aplastic anemia; R78.81 Bacteremia; C91.10 Chronic lymphocytic leukemia of B-cell type not having achieved remission; E44.0 Moderate protein-calorie malnutrition; D61.810 Antineoplastic chemotherapy induced pancytopenia; R50.81 Fever presenting with conditions classified elsewhere; B96.5 Pseudomonas (aeruginosa) (mallei) (pseudomallei) as the cause of diseases classified elsewhere; T45.1X5A Adverse effect of antineoplastic and immunosuppressive drugs, initial encounter; R19.7 Diarrhea, unspecified; R63.4 Abnormal weight loss; E83.42 Hypomagnesemia; Z79.899 Other long term (current) drug therapy; Z86.19 Personal history of other infectious and parasitic diseases; Z88.1 Allergy status to other antibiotic agents